=== PATIENT | male | born 1935 | race Caucasian/White ===

== ENCOUNTER 2016-10-14 04:39 | Inpatient (IN) | payer MEDICARE, OTHER ==
[~2016-10-14] VITALS: Ht 193 cm; Wt 114.6 kg
[~2016-10-14 04:39] MED LIST: ASPI-973 PO; CHOL10008 PO; CYAN10008 PO; DOCU-41 PO; FAMO20T PO; METO25TA6 PO; NITR0.4T SL; NYST15PO5 EXTERNAL; OXYC1TAB24 PO; SENN8.6C6 PO; SIMV40TA5 PO; TRIA1TAB5 PO; WARF2.5T PO; WARF5TAB PO; ZYL100 PO
[2016-10-14 04:47] VITALS: BP 123/73; PULSE 74; RESP 21; O2SAT 97
--- NOTE | 2016-10-14 04:49 | ED.REPORT ---
HPI-General Illness Date of Service Oct 14, 2016 ED Provider: Dr. Daniel Hsieh M.D. 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 He also reports wheezing and shortness of breath. The patient denies fever, nausea, vomiting, chest pain, hemoptysis, abdominal pain, or constipation. Nursing Notes Stated Complaint: SHORT OF BREATH COUGH Chief Complaint: Respiratory Complaints Nursing Notes Reviewed: Yes Allergies: Coded Allergies: rofecoxib (Verified Allergy, Severe, 10/14/16) ciprofloxacin (Verified Allergy, Unknown, rash, 10/14/16) Scheduled Allopurinol (Allopurinol) 100 Mg Tablet 100 MG PO DAILY Aspirin (Aspirin) 81 Mg Tablet 81 MG PO DAILY Cephalexin (Cephalexin) 250 Mg Tablet 250 MG PO DAILY Cholecalciferol (Vitamin D3) (Vitamin D3) 1,000 Unit Tab.chew 1,000 UNIT PO DAILY Cyanocobalamin (Vitamin B-12) (Vitamin B-12) 1,000 Mcg Tablet 1,000 MCG PO DAILY Metoprolol Tartrate (Metoprolol Tartrate) 25 Mg Tablet 12.5 MG PO BID Simvastatin (Simvastatin) 40 Mg Tablet 20 MG PO HS Triamterene/HCTZ 75-50 mg (Triamterene/HCTZ 75-50 mg) 1 Each Tablet 1 EACH PO DAILY Warfarin Sodium (Warfarin Sodium) 2.5 Mg Tablet 2.5 MG PO Tu, Thu Warfarin Sodium (Warfarin Sodium) 5 Mg Tablet 5 MG PO M, W, Th, St, Sn Scheduled PRN Docusate Sodium (Colace) 100 Mg Capsule 100 MG PO BID PRN PRN For Constipation Nitroglycerin SL (Nitrostat) 0.4 Mg Tab.subl 0.4 MG SL Q5MIN PRN PRN For Chest Pain Nystatin (Nystatin) 15 Gm Powder 1 APPLIC EXTERNAL BID PRN PRN rash Sennosides (Senna) 8.6 Mg Tablet 8.6 MG PO PRN For Constipation oxyCODONE-Acetaminophen 5-325 mg (oxyCODONE-Acetaminophen 5-325 mg) 1 Each Tablet 1 TAB PO TID PRN PRN For Pain General Time Seen by MD: 04:49 Chief Complaint Cough Hx Obtained From: Patient, Spouse Arrived By: Ambulance Sudden in Onset?: Yes Onset Occurred: 9 - 12 hours ago Symptom Duration: Since onset Severity: Current: No pain currently Severity: Maximum: No pain Associated with: Reports: Shortness of breath, Denies: Chest pain, Fever, Nausea, Vomiting Pertinent Negative: Relieved by nothing Context Related History: Reports Coronary artery disease Recent Healthcare: No recent doctor visit Similar Sx Previous: Yes Past Medical History Past Medical History Bedridden since stroke in 2010 1. Coronary artery disease. He had a cath back in early 1999 that showed mild multivessel disease with an EF of 60%. 2. History of B-cell lymphoma 3. He has had bilateral kidney cysts which have been removed. 4. osteoarthritis 5. 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 6. Colon polyps. 7. Atrial fibrillation. 8. Hypertension. 9. 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 Physical Exam Vital Signs Vital Signs Date Time Temp Pulse Resp B/P Pulse Ox O2 Delivery O2 Flow Rate FiO2 10/14/16 05:29 73 18 95 Room Air 10/14/16 04:47 36.4 74 21 123/73 97 Room Air Initial VS: Reviewed Head / Eyes: Atraumatic, Normocephalic Neck: Supple, Full range of motion Skin: Warm, Dry, No cyanosis Psychiatric: Mood/affect normal, Behavior normal, Normal thought content General/Constitutional: Awake, Alert Distress / Hydration: Positive: Dehydration mild ENT: Airway patent, Mucous membranes moist, Pharynx NL Respiratory / Chest: Breath sounds = bilat, No respiratory distress Dull crackles in right base Cardiovascular: Regular rhythm, Heart sounds NL Heart Rate / Rhythm: Positive: Tachycardia Upper Ext Edema: Positive: Left 2+, Right 4+ Neurologic: Oriented X3, Speech NL Hemiparetic on the right Interpretation & Diagnostics Lab Results Interpretation Result Diagram: 1/3/17 0445 10/14/16 0445 Test 10/14/16 04:45 10/14/16 05:25 White Blood Count 9.0th/mm3 (3.8-10.1) Red Blood Count 5.10mil/mm3 (4.40-5.80) Hemoglobin 16.0g/dL (13.8-17.2) Hematocrit 47.7% (41.0-50.0) Mean Corpuscular Volume 93.5fL (81-100) Mean Corpuscular Hemoglobin 31.4pg (27.0-35.0) Mean Corpuscular Hemoglobin Concent 33.5% (32.0-37.0) Red Cell Distribution Width 14.1% (12.3-15.4) Platelet Count 146bil/L (150-400) Neutrophils (%) (Auto) 83.4% (40-74) Lymphocytes (%) (Auto) 4.8% (14-46) Monocytes (%) (Auto) 10.5% (4-12) Eosinophils (%) (Auto) 0.8% (0-5) Basophils (%) (Auto) 0.3% (0-3) Hold Purple Top Tube Received (Received) Prothrombin Time 22.7sec (8.1-12.5) Prothromb Time International Ratio 2.09ratio Activated Partial Thromboplast Time 31.9sec (22.8-33.0) Hold Blue Top Tube Received (Received) Sodium Level 139mEq/L (134-144) Potassium Level 4.4mEq/L (3.5-5.2) Chloride Level 101mEq/L (97-108) Carbon Dioxide Level 26mmol/L (18-29) Blood Urea Nitrogen 24mg/dL (8-27) Creatinine 1.00mg/dL (0.76-1.27) Estimat Glomerular Filtration Rate 76mL/min (>59) Glucose Level 129mg/dL (60-99) Calcium Level 9.3mg/dL (8.5-10.1) Total Bilirubin 1.1mg/dL (0.0-1.2) Aspartate Amino Transf (AST/SGOT) 17U/L (0-50) Alanine Aminotransferase (ALT/SGPT) 11U/L (0-44) Alkaline Phosphatase 52U/L (25-160) Troponin T 0.037ug/L (0.0-0.011) Pro-B-Type Natriuretic Peptide 2588pg/mL (0-486) Total Protein 6.6g/dL (6.4-8.4) Albumin 3.4g/dL (3.4-5.0) Hold [place] Top Tube Received (Received) Hold [place] Top Tube Received (Received) Urine Color Yellow (YELLOW) Urine Appearance Slightly cloudy Urine pH 6.0 (5.0-8.0) Urine Specific [place] 1.025 (1.003-1.035) Urine Protein 100mg/dL (NEG,TRACE) Urine Glucose (UA) Negativemg/dL (NEGATIVE) Urine Ketones Negativemg/dL (NEGATIVE) Urine Occult Blood Large (NEGATIVE) Urine Nitrite Positive (NEGATIVE) Urine Bilirubin Negative (NEGATIVE) Urine Urobilinogen Normalmg/dL (NORMAL) Urine Leukocyte Esterase Small (NEGATIVE) Urine RBC Packed/hpf (0-2) Urine WBC >50/hpf (0-5) Urine Epithelial Cells Occasional/hpf (NONE-MOD) Urine Crystals None seen (NONE SEEN) Urine Bacteria Many/hpf (NONE-FEW) Urine Hyaline Casts None/lpf (NONE) Urine Granular Casts None seen (NONE SEEN) Urine Waxy Casts None seen (NONE SEEN) Urine Red Blood Cell Casts None seen (NONE SEEN) Urine White Blood Cell Casts None seen (NONE SEEN) Urine Mucus None seen (None Seen) Urine Trichomonas None seen (NONE SEEN) Urine Yeast None (NONE SEEN) Urine Culture Reflexed Indicated ECG Interpretation ECG Interpretation: Atrial fibrillation rate 87 PVCs Nothing acute Time: 05:45 Interpreted by: ED physician X-Ray Chest Interpretation Chest Xray Interpretation: Possible right lower lobe infiltrate View: Portable, 1 view Interpretation / Wet Read by: Wet read ED physician Re-Eval/Medical Decision Med Decision/Clinical Course 81-year-old man status post stroke with chronic A. fib on Coumadin, presents with cough and inability to catch his breath. He is also having difficulty producing sputum. Denies chest pain shortness of breath except when coughing. He has had no nausea vomiting or diaphoresis. He has no evidence of pneumonia on x-ray, and a negative flu swab. However, his troponin is elevated without explanatory elevation of his creatinine. His EKG is nonacute with right bundle branch block and atrial fibrillation. He is admitted now to the medicine service for trending of his troponin, aspirin in addition to his ongoing Coumadin, and ongoing nebulizer treatment for his bronchitis and dyspnea. He has additionally a urinalysis with evidence of infection, but a chronic indwelling Ovalle. He is on prophylactic cephalexin daily. He is allergic to Cipro. Culture of urine pending. Consider trial, even briefly, of antibiotic without a Ovalle in place. Source of Hx: Old records Time of Eval: 06:45 Patient Status: Condition improved Re-Evaluation/Progress Note: Patient rechecked. Counseled Regarding: Diagnosis, Need for follow-up, When/why to return to ED Discharge & Departure Shift Change Sign-Out Response to Therapy: Improved Primary Impression: Elevated troponin Additional Impressions: Acute bronchitis Bronchitis organism: unspecified organism Qualified Code: J20.9 - Acute bronchitis, unspecified Cough Chronic indwelling Ovalle catheter Urinary tract infection Disposition: Home Discharge Condition All VS Reviewed: Yes Condition: Stable Referrals: Joselo Schmitt MD (PCP) [place] Attestation Portions of this note were transcribed by Susannah Catalan. I, Dr. Hsieh, personally performed the history, physical exam, and medical decision-making; I reviewed and confirmed the accuracy of the information in the transcribed note. Signed by: Aamir Alvarado, 10/14/2016, 06:43 copies to: Joselo Schmitt MD, Christopher W MD Oct 14, 2016 04:49 SUSANNAH CATALAN Oct 14, 2016 04:54
[2016-10-14] MEDS ORDERED: WARF2.5T82 PO (05:05)
[2016-10-14] MEDS ORDERED: WARF5TAB7 PO (05:05)
[2016-10-14] MEDS ORDERED: CEPH250T PO (05:05)
[2016-10-14] MEDS ORDERED: SENN-133 PO (05:06)
[2016-10-14] MEDS ORDERED: Albuterol 2.5 mg/3 mL Inhalation Solution NEB ONE (05:10)
[2016-10-14] MEDS ORDERED: Albuterol-Ipratropium 3 mL Inhalation Solution NEB ONE (05:10)
[2016-10-14 05:29] VITALS: PULSE 73; RESP 18; O2SAT 95
[2016-10-14 05:57] LABS: BASOPHILS % (AUTO) 0.3 % (0-3); EOSINOPHILS % (AUTO) 0.8 % (0-5); MONOCYTES % (AUTO) 10.5 % (4-12); Mean Corpuscular Hemoglobin 31.4 pg (27.0-35.0); Mean Corpuscular Volume 93.5 fL (81-100); NEUTROPHILS % (AUTO) 83.4 % (40-74); Platelet Count 146 bil/L (150-400)
[2016-10-14 06:02] LABS: INR 2.09 ratio
[2016-10-14 06:30] LABS: TROPONIN T 0.037 ug/L (0.0-0.011)
[2016-10-14 06:31] LABS: APPEARANCE,URINE SLIGHTLY CLOUDY (CLEAR,HAZY); COLOR,URINE YELLOW (YELLOW); OCCULT BLOOD,URINE LARGE (NEGATIVE); UROBILINOGEN,URINE NORMAL (NORMAL)
[2016-10-14] MEDS ORDERED: Heparin 5,000 Unit/mL Inj IVPUSH ONE (07:05)
[2016-10-14] MEDS ORDERED: Heparin 25K Unit/500mL 0.45 NS 25,000 UNIT in IV Premix 1 EACH IV SCH (07:05)
[2016-10-14] MEDS ORDERED: Heparin 5,000 Unit/mL Inj IVPUSH PRN ×2 (07:05→16:00)
[2016-10-14] MEDS ORDERED: OXYC1TAB24 PO (07:22)
[2016-10-14] MEDS ORDERED: LORazepam 0.5 mg Tablet PO ONE ×2 (08:36→08:55)
--- NOTE | 2016-10-14 08:46 | DRSVH ---
PROCEDURE: X-RAY CHEST ONE VIEW, PORTABLE ([id number]) INDICATIONS: SHORT OF BREATH, cough TECHNIQUE: One view of the chest was acquired. COMPARISON: [facility], CR, XR CHEST 1VW (PORTABLE), 02/13/2016, 7:23. [facility], CR, CHEST 1VW (PORTABLE), 07/27/2011, 6:00. [facility], CR, CHEST 1VW (PORTABLE), 07/26/2011, 15:38. FINDINGS: Surgical changes and devices: None. Lungs and pleura: No pleural effusions or pneumothorax. Mild right basal atelectasis versus pneumoni a. Mediastinum: Mediastinal contours appear normal. Heart size is enlarged. Bones and chest wall: No suspicious bony lesions. Overlying soft tissues appear unremarkable. IMPRESSION: Right basilar atelectasis versus pneumonia. Concordant with preliminary interpretation. Dictated by: Yisel Phan M.D. on 10/14/2016 at 8:44 Approved by: Yisel Phan M.D. on 10/14/2016 at 8:44
[2016-10-14 08:50] VITALS: BP 144/65; PULSE 83; RESP 22; O2SAT 96
[2016-10-14] MEDS ORDERED: LORazepam 0.5 mg Tablet ONE (13:52)
[2016-10-14] MEDS ORDERED: Alum-Mag Hydrox-Simeth 30 mL Suspension PO PRN (15:40)
[2016-10-14] MEDS ORDERED: Ondansetron 2 mg/mL 2 mL Inj IVPUSH PRN (15:40)
[2016-10-14] MEDS ORDERED: Polyethylene Glycol (PEG) 17 Gm Powder PO PRN (15:40)
[2016-10-14 16:01] VITALS: BP 118/47; PULSE 71; RESP 22; O2SAT 94
[2016-10-14] MEDS: Heparin 25K Unit/500mL 0.45 NS 25,000 UNIT in IV Premix 1 EACH IV SCH (17:35)
--- NOTE | 2016-10-14 18:37 | DRSVH ---
PROCEDURE: US VENOUS LEG DUPLEX BILATERAL INDICATIONS: dyspnea TECHNIQUE: Real-time imaging, as well as color and pulse Doppler interrogation, were performed of the deep veins of both legs from the inguinal ligament to the popliteal fossa. COMPARISON: None. FINDINGS: Right: The common femoral vein is patent. The femoral and popliteal veins are not visualized. There i s marked soft tissue edema. Left: The common femoral and popliteal veins are patent. The femoral vein is not visualized. There is marked soft tissue edema. IMPRESSION: 1. Suboptimal examination because of the marked soft tissue edema. 2. Nonvisualization of the right femoral vein and popliteal vein, as well as the left femoral vein. C annot rule out DVT. 3. Patient common femoral veins bilaterally and left popliteal vein. Dictated by: Selena Gomez M.D. on 10/14/2016 at 18:35 Approved by: Selena Gomez M.D. on 10/14/2016 at 18:35
--- NOTE | 2016-10-14 19:19 | NUR ---
Anxiety Pt. feeling anxious this morning. Hypertensive in 160s/90s. one-time PO lorazepam administered. Pt. feeling less anxious after one hour and BP has resolved.
[2016-10-14 19:52] VITALS: BP 111/57; PULSE 85; RESP 18; O2SAT 94
--- NOTE | 2016-10-14 21:22 | PCM.HPMED ---
Subjective Date of Service Oct 14, 2016 Primary Provider: Admitting Physician: Chuy Donovan MD Primary Care Physician: Joselo Schmitt MD Attending Physician: Chuy Donovan MD Chief Complaint: Dyspnea on exertion and cough. History of Present Illness: Mr. Tristan Catalan is an 81 year old gentleman with history of Afib, VT, DVT, and stroke with residual right sided hemiparesis. He has been bed-bound for 4 years. For about a month, patient gets short of breath 2 hours after eating his early dinner around 3pm. He says he turns the ceiling fan on, and it gets better. He is seen by [facility], and nurse yesterday had no concerns other than possible abnormal lung sounds at right base. He has not slept well for the last 3 days, and around 3 am this morning he came down with a non- productive cough with severe shortness of breath and weakness. He also reports feeling anxious. His called 911 and was brought to [facility] ED. He received duoneb and albuterol treatment in ED. He says this loosened the mucous in his lungs, but that he still cannot bring it up. Review of Systems: A comprehensive review of systems was conducted with the patient and found to be negative except as above in the History of Present Illness. Allergies Coded Allergies: rofecoxib (Verified Allergy, Severe, 10/14/16) ciprofloxacin (Verified Allergy, Unknown, rash, 10/14/16) Home Medications Metoprolol 25mg daily, allopurinol 100mg daily, triamterene 75/50 mg daily, ASA 81 mg daily, oxycodone 5/325 daily, docusate PRN, Cephalexin 250mg daily, warfarin 2.5 mg thu, 5mg other days, simvastatin 40 mg daily, vitamin B12 1000 mcg daily PMH Affib, VT in February 2016,Stroke in 2010, DVT 2007, HTN, hyperlipidemia, renal cell CA, recurrent UTIs, gout Surgical History Cath in 2005, not stented, occluded RCA w/collaterals, bilateral partial nephrectomy, right knee arthroscopy Family History Parkinsons-father, mother lived to , healthy children Social History Hx Alcohol Use: No Hx Substance Use: No Hx Tobacco Use: No Smoking Status: Never Smoker Exam Vital Signs Vital Sign - Last Date Time Temp Pulse Resp B/P Pulse Ox O2 Delivery O2 Flow Rate FiO2 10/14/16 19:52 36.7 85 18 111/57 94 Room Air Exam VS: Temp 36.4, BP 155/67, HR 78 in affib, 94% RA, RR 18 General: sick appearing man, though is able to answer questions HEENT: neck supple, non tender, no LAD, oral pharynx without erythema or exudates Neuro: EOMI, PERRLA, visual gay intact, able to move right foot, but without sensation, left sided strength and sensation at baseline Cardiac: irregularly irregular rhythm, no murmurs/rubs gallops, no JVD, distal pules present, IV in R AC Pulmonary: decreased air movement with expiatory wheeze Abdomen: soft nontender, decreased bowel sounds, no CVA or suprapubic tenderness : chronic urinary catheter present with 200 mL of dark yellow urine in bag Extremities: right leg diffusely swollen, bilateral pitting edema, small well- healing sores on posterior right leg. Small open wound on right great toe with erythema Lab and Diagnostics Result Diagram: 10/14/1644410/14/16444 Assessment & Plan This is an 81 year old male with history of Affib, VT, DVT, and stroke with residual right sided hemiparesis. He has been bed-bound for 4 years. For about a month, patient gets short of breath 2 hours after eating his early dinner around 3pm. He says he turns the ceiling fan on, and it gets better. He is seen by [facility], and nurse yesterday had no concerns other than possible abnormal lung sounds at right base. He has not slept well for the last 3 days, and around 3 am this morning he came down with a non-productive cough with severe shortness of breath and weakness. He also reports feeling anxious. His called 911 and was brought to [facility] ED. He received duoneb and albuterol treatment in ED. He says this loosened the mucous in his lungs, but that he still cannot bring it up. 1.Dyspnea with cough: Progressive, Present on admission. Active. - DDX: CAP Viral / aspiration / Bacterial less likely, DVT/PE, CHF. - Viral PCR Pending. - Goldman cx - Blood x2, Urine, sputum pending. - CXR results per above. - CURB-65 score 2 for BUN and age, PSI score 101 with 8.2-9.3 mortality risk - Begin Ceftriaxone / azithromycin - Scheduled Duoneb and albuterol Q2hr as needed - Urine legionella antigen, strep antigen, - Elevated BNP, dyspnea - ECHO pending. - Venous Doppler US Pending. - Speech / swallow eval. 2.UTI- Chronic, present on admission, active. - 2nd to indwelling catheter with failed medical management. - UA per above. - Discontinue cephalexin, monitor urine output. Abx per above. - Lactic acid - pending. 3..Possible NSTEMI, present on admission, active - History of NSTEMI in February, elected to manage medically. - Elevated troponin - 0.037 - EKG ST depressions - Continue home statin, ASA - Cardiac Heparin ggt. - Consult Cardiology 4.Affib without RVR-Chronic, present on admission, active - Per EKG - On tele monitor. - Continue home metoprolol. 5.Anxiety: acute, POA - Give .5g mg Ativan IV 6.Hypertension: Chronic, controlled - Continue metoprolol 7.Gout: Chronic inactive - Continue allopurinol 8. Decubitus ulcers and lower extremity ulcers. - 2nd to immobility and decreased functional status of Right lower extremity. - Wound care to assess and treat. Acetaminophen for mild pain when necessary. Bowel regimen Senna and MiraLAX scheduled and PRN. Zofran when necessary for nausea and vomiting. SubQ heparin and ggt for now. SCDs in place. High-risk medications: Heparin ggt. Patient Status: Patient is admitted under inpatient status with expected length of stay greater than 2 midnights due to severity of presenting symptoms, risk of adverse event, and complexity of treatment plan. Pain Evaluation: Adequate Pain Control Resuscitation Status: Limited Interventions (Chest compressions, Do not intubate.) Attending Statement The patient was seen and examined together with Dr. Urrutia on 10-14-16 and I agree with the history, exam and plan as outlined in the note above. DIYA URRUTIA DO Oct 14, 2016 21:22 Chuy Donovan MD Oct 15, 2016 16:55
[2016-10-14] MEDS ORDERED: CEFTAZIDIME IV SCH (22:35)
[2016-10-14] MEDS ORDERED: DEXTROSE 5% IV SCH (22:35)
[2016-10-14] MEDS: oxyCODONE-Acetamin 5-325 mg Tablet PO PRN (22:47)
[2016-10-14 23:00] VITALS: BP 155/70; PULSE 70; RESP 18; O2SAT 95
[2016-10-14] MEDS ORDERED: 0.9% Sodium Chloride 250 ML ONE (23:00)
--- NOTE | 2016-10-14 23:00 | NUR ---
pain patient complains of pain to bilateral lower extremities. rates pain a 3. requests percocet as per home meds. notified night resident dr ly. levy ordered. administered. patient stated it was effective. rates pain a 1. resting quietly.
[2016-10-15] VITALS (8 sets, daily range): BP systolic 120–164; BP diastolic 56–103; PULSE 55–85; RESP 16–18; O2SAT 95–98
--- NOTE | 2016-10-15 02:13 | NUR ---
care update patient placed on telemetry. refuses to be repositioned. requests door closed to room. given call agrawal. reviewed fall precautions verbalized understanding.
[2016-10-15 04:14] LABS: BASOPHILS % (AUTO) 0.3 % (0-3); EOSINOPHILS % (AUTO) 0.2 % (0-5); MONOCYTES % (AUTO) 11.9 % (4-12); Mean Corpuscular Hemoglobin 31.1 pg (27.0-35.0); Mean Corpuscular Volume 92.3 fL (81-100); NEUTROPHILS % (AUTO) 81.2 % (40-74); Platelet Count 128 bil/L (150-400)
[2016-10-15 05:00] LABS: Creatine Kinase 122 U/L (21-232)
[2016-10-15 05:01] LABS: TROPONIN T 0.073 ug/L (0.0-0.011)
--- NOTE | 2016-10-15 06:08 | NUR ---
care update patient again refuses to be repositioned. states "i am comfortable where i am." educated about risk of skin breakdown. patient cont to refuse. Addendum: 10/15/16 at 0748 by RENE CISSE RN repositioned and turned patient to the right.
--- NOTE | 2016-10-15 08:43 | DRSVH ---
PROCEDURE: X-RAY CHEST ONE VIEW, PORTABLE ([id number]) INDICATIONS: 81 year-old male with dyspnea. TECHNIQUE: One view of the chest was acquired. COMPARISON: [facility], CR, XR CHEST 1VW (PORTABLE), 10/14/2016, 4:53. [facility], CR, XR CHEST 1VW (PORTABLE), 02/13/2016, 7:23. [facility], CR, CHEST 1VW (PORTABLE ), 07/27/2011, 6:00. FINDINGS: Surgical changes and devices: None. Lungs and pleura: No pleural effusions or pneumothorax. Right basilar air space opacities have incre ased. Mediastinum: Mediastinal contours appear normal. Heart size is unchanged. There is aortic atherosc lerosis. Bones and chest wall: No suspicious bony lesions. Overlying soft tissues appear unremarkable. IMPRESSION: Slight interval increase in right basilar atelectasis versus pneumonia. Dictated by: Herson Page M.D. on 10/15/2016 at 8:41 Approved by: Herson Page M.D. on 10/15/2016 at 8:41
--- NOTE | 2016-10-15 10:29 | NUR ---
Transfer Pt arrived to floor @ 0815. No chest pain reported. Pt on droplet for + rhinovirus. Pt states he is bedbound as he had a CVA with right sided weakness. Tele current Afib. Lower extremity edema is present. Pt has preexisting monsalve that is changed monthly by home health nurse which was just changed 10/13/16. Pt states last BM on 10/13/16 and it is normal for him to have a BM Q3-4 days. RN swallow eval done which pt passed. Spoke with Yuri Rey of speech therapy in [facility] regarding my findings. Pt appears to not have any issues swallowing. Pt had hep gtt infusing at 1025units/hr. Pt aware he is to have an echo today and still needing a sputum sample. Care conts
[2016-10-15] MEDS: cefTRIAXone Inj 2,000 MG in IV Premix 1 EACH IV SCH (11:03)
[2016-10-15] MEDS: oxyCODONE-Acetamin 5-325 mg Tablet PO PRN ×2 (11:06→19:50)
--- NOTE | 2016-10-15 12:11 | NUR ---
Erlinch @ [phone] Tele called this nurse to report 16 beat run of Donal. paged. Pt asymptomatic.
[2016-10-15] MEDS: Azithromycin Inj 500 MG in Dextrose 5% w/Vial Mate 250 ML IV SCH (12:39)
--- NOTE | 2016-10-15 14:55 | NUR ---
Blood cultures Lab called with positive blood cultures gram pos cocci resembling staph. Results called to Dr. Wilks. States she is going to contact Dr. wharton. Care conts
--- NOTE | 2016-10-15 15:36 | DRSVH ---
[facility] [address] [place] [address] Echocardiogram Report Name: MITCHELL ROSENTHAL LStudy Date: 10/15/2016 Height: 76 in Hospital Exam Location: [facility] Weight: 250 lb Gender: Male BSA: 2.4 m2 : 1935 Age: 81 yrs BP: 120/56 mmHg Reason For Study: SOB Ordering Physician: Performed By: Hamida Luther Referring Physician: Melchor Schmitt Interpretation Summary The left ventricle is normal in size, wall thickness, and systolic function without any focal wall motion abnormalities. The ejection fraction is estimated to be 60-65%. The right ventricle is not well visualized. The right ventricle grossly appears normal in size with probable normal systolic function. Right ventricular systolic pressure is estimated to be 21 mmHg plus the clinically estimated CVP which cannot be estimated on this exam. The left atrial size is normal. Right atrium not well visualized. There is mild aortic stenosis. The calculated aortic valve area is 1.8 cm2. There is no other significant valvular heart disease. The aortic root is normal size. Procedure: A two-dimensional transthoracic echocardiogram with color flow and Doppler was performed. The study quality was technically adequate. Comparison is made with the echocardiogram of 07-27-11. The heart rate ranged between 64-73 bpm during the study. Left Ventricle: The left ventricle is normal in size, wall thickness, and systolic function without any focal wall motion abnormalities. The ejection fraction is estimated to be 60-65%. Right Ventricle: The right ventricle is not well visualized. The right ventricle grossly appears normal in size with probable normal systolic function. Atria: The left atrial size is normal. Right atrium not well visualized. Mitral Valve: The mitral valve leaflets appear mildly thickened, but open well. There is mild mitral annular calcification. There is no mitral regurgitation noted. Aortic Valve: The aortic valve is moderately calcified. There is mild aortic stenosis. The calculated aortic valve area is 1.8 cm2. No aortic regurgitation is present. Tricuspid Valve: The tricuspid valve is not well visualized. The tricuspid valve is not well visualized, but is grossly normal. Right ventricular systolic pressure is estimated to be 21 mmHg plus the clinically estimated CVP which cannot be estimated on this exam. Pulmonic Valve: The pulmonic valve is not well seen, but is grossly normal. There is trace pulmonic regurgitation. There is no other significant valvular heart disease. Great Vessels: The aortic root is normal size. The dimensions of the ascending aorta are normal. The inferior vena cava was not visualized. Pericardium/ Pleura There is no pericardial effusion. There is no pleural effusion. MMode/2D Measurements & Calculations LVIDd: 4.0 cm LA dimension LVOT diam: 2.2 cm LV patel. diameter/BSA LVIDs: 2.8 cm AoV Openin.1 cm (cm/m^2): 1.7 FS: 31.5 % LA A2 area Ao root diam IVSd: 1.3 cm LVPWd: 1.0 cm Aortic Jxn: 2.5 cm LA A4 area asc Aorta Diam LA length Ao Arch Diam (vol): 7.8 cm (Proximal trans.) LA vol: 59.2 ml LA vol index : 24.3 ml/m2 LV sys. diameter/BSA (cm/m^2): 1.1 Doppler Measurements & Calculations Ao V2 max MV E max wilberto MV E/A: 2.9 TR max wilberto : 176.1 cm/sec : 90.0 cm/sec Med Peak E' Wilberto : 227.0 cm/sec Ao max PG MV A max wilberto TR max PG : 12.4 mmHg : 31.2 cm/sec E/E' med: 12.6 : 20.6 mmHg Ao mean PG MV P1/2t: 48.2 msec Lat Peak E' Wilberto PA V2 max : 87.5 cm/sec LVOT Max Wilberto E/E' lat: 7.9 PA mean PG : 82.5 cm/sec PA Accel Time CHAZ(I,D): 1.8 cm : 0.10 sec sev ratio MV dec time MV P1/2t max wilberto Ao V2 mean LV V1 max PG : 0.16 sec : 118.3 cm/sec MVA(P1/2t): 4.6 cm2 Ao V2 VTI: 33.5 cm LV V1 VTI CHAZ(V,D): 1.9 cm2 : 15.5 cm PA V2 mean CHAZ indexed to BSA : 47.4 cm/sec (cm^2/m^2): 0.75 Reading Physician:ABIGAIL
--- NOTE | 2016-10-15 16:03 | NUR ---
Wound Care Pressure ulcer protocol received, Pt seen at bedside. Bed bound 81 yo male with history of CVA with right sided weakness. Skin is assessed today no pressure injuries are noted at his skin at this time. When rolled onto his side he is noted to have some bloody drainage from his rectum. Nursing notified. Continue with frequent repositioning as pt needs assist with all bed mobility.
[2016-10-15] MEDS ORDERED: Albuterol 2.5 mg/3 mL Inhalation Solution NEB PRN (16:05)
--- NOTE | 2016-10-15 16:23 | NUR ---
Bloody drainage Wound care notified this nurse regarding minor bloody drainage from his rectum. Spoke with pt regarding this. He states that this seems to happen at least once a month and he was no worried about it. notified via text page.
[2016-10-15] MEDS ORDERED: Lidocaine Topical 2% 30 mL Jelly ONE (16:52)
--- NOTE | 2016-10-15 17:03 | PCM.PNMED ---
Subjective Date of Service Oct 15, 2016 Subjective Tristan Catalan is an 81-year-old male with a past medical history significant for CVA with residual right-sided hemiparesis, CAD, hypertension, atrial fibrillation and bilateral DVT's on chronic anticoagulation with warfarin who presented to [facility] ED via EMS for productive cough, wheezing and shortness of breath. Hospital day #2. Overnight: There were no acute events. Telemetry overnight was atrial fibrillation, heart rate 50-80's, without multiform PVC pairs. The patient is resting in bed comfortably and in no acute distress. He endorses non-productive cough. He denies headache, ear pain, rhinitis, sore throat, shortness of breath, chest pain, abdominal pain, nausea, vomiting, fever , chills, dysuria, diarrhea or constipation. He is voiding via Ovalle catheter with little urine output. He has not had a BM since admission. He is bedbound for the past 4 years. . Exam Vital Signs Vital Sign - Last Date Time Temp Pulse Resp B/P Pulse Ox O2 Delivery O2 Flow Rate FiO2 10/15/16 13:53 36.7 55 18 121/60 96 Room Air Intake and Output 10/14/16 10/14/16 10/15/16 Cumulative From/Thru 15:00 23:00 07:00 10/14/16 04:47 - 10/15/16 05:00 Intake Total 226 ml 226 ml Output Total 600 ml 500 ml 1100 ml Balance -600 ml -274 ml -874 ml Intake IV Total 226 ml 226 ml Output Urine Total 600 ml 500 ml 1100 ml Exam General: Older gentleman lying in bed and in no acute distress, well-developed, well-nourished, appropriately interactive. HEENT: Normocephalic, atraumatic. External ears without defect. Pupils equal, round, and reactive to light. Anicteric sclerae, moist conjunctivae, and no lid lag. Mucus membranes dry. Poor dentition. Neck: Supple with full range of motion. No lymphadenopathy or thyromegaly. Cardiovascular: Irregular irregular rate and rhythm with no murmurs, rubs, or gallops appreciated. Pulmonary: Clear to auscultation except at right base scattered crackles. Normal respiratory effort with no use of accessory muscles. Abdomen: Soft, nontender, nondistended, bowel sounds present. No hepatosplenomegaly or masses appreciated. Extremities: No clubbing, cyanosis, or edema. Skin: Normal temperature, turgor, and texture; no rash, ulcers, or subcutaneous nodules appreciated. Neurological: Bed bound secondary to chronic right sided hemiparesis. Psychiatric: Normal mood and affect. Alert and oriented to person, place, and time. . IVs and Medications Medications Reviewed: Medications were reviewed in detail Lab and Diagnostics Item Value Date Time Calcium Level 8.9 mg/dL 10/15/16 0400 Total Bilirubin 1.3 mg/dL H 10/15/16 0400 Aspartate Amino Transf (AST/SGOT) 20 U/L 10/15/16 0400 Alanine Aminotransferase (ALT/SGPT) 8 U/L 10/15/16 0400 Alkaline Phosphatase 42 U/L 10/15/16 0400 Total Protein 5.3 g/dL L 10/15/16 0400 Albumin 2.9 g/dL L 10/15/16 0400 Procalcitonin 0.20 ng/mL 10/15/16 040 Result Diagram: 10/15/16 04010/15/16 040 Microbiology Urine culture preliminarily growing gram-negative rods likely Escherichia coli with identification and sensitivities to follow. Blood culture x 1 preliminarily growing gram-positive cocci resembling staph aureus with identification and sensitivities to follow. Streptococcus and Legionella urine antigen negative. . X-Rays, CTs and MRIs X-RAY CHEST ONE VIEW, PORTABLE IMPRESSION: Right basilar atelectasis versus pneumonia. Concordant with preliminary interpretation. Dictated by: Yisel Phan M.D. on 10/14/2016 at 8:44 Approved by: Yisel Phan M.D. on 10/14/2016 at 8:44 US VENOUS LEG DUPLEX BILATERAL IMPRESSION: 1. Suboptimal examination because of the marked soft tissue edema. 2. Nonvisualization of the right femoral vein and popliteal vein, as well as the left femoral vein. Cannot rule out DVT. 3. Patient common femoral veins bilaterally and left popliteal vein. Dictated by: Selena Gomez M.D. on 10/14/2016 at 18:35 Approved by: Selena Gomez M.D. on 10/14/2016 at 18:35 X-RAY CHEST ONE VIEW, PORTABLE IMPRESSION: Slight interval increase in right basilar atelectasis versus pneumonia. Dictated by: Herson Page M.D. on 10/15/2016 at 8:41 Approved by: Herson Page M.D. on 10/15/2016 at 8:41 Cardiac Echo Impressions Echocardiogram Interpretation Summary: The left ventricle is normal in size, wall thickness, and systolic function without any focal wall motion abnormalities. The ejection fraction is estimated to be 60-65%. The right ventricle is not well visualized. The right ventricle grossly appears normal in size with probable normal systolic function. Right ventricular systolic pressure is estimated to be 21 mmHg plus the clinically estimated CVP which cannot be estimated on this exam. The left atrial size is normal. Right atrium not well visualized. There is mild aortic stenosis. The calculated aortic valve area is 1.8 cm2. There is no other significant valvular heart disease. The aortic root is normal size. Reading Physician:PM . Assessment & Plan Tristan Catalan is an 81-year-old male with a past medical history significant for CVA with residual right-sided hemiparesis, CAD, hypertension, atrial fibrillation and bilateral DVT's on chronic anticoagulation with warfarin who presented to [facility] ED via EMS for productive cough, wheezing, and shortness of breath. Hospital day #2. 1. Acute dyspnea, present on admission. Active. - Patient presented with dyspnea at rest with a non-productive cough. - Differential diagnosis includes: Community-acquired pneumonia (viral versus bacterial) versus unlikely venous thromboembolism versus congestive heart failure for reasons below. 2. Acute viral upper respiratory tract infection, present on admission. Active. - Viral PCR positive for rhinovirus, as above. - Chest x-ray shows increasing right basilar opacities, as above. - Urine legionella and strep urine antigen negative. - Ordered DuoNeb every and albuterol every 2 hours as needed. - Echocardiogram revealed normal systolic function with an ejection fraction of 60-65% and normal RV, as above. - Venous Doppler US shows no evidence of DVT making PE less likely. - Procalcitonin low at 0.20. Trending with tomorrow's labs but unlikely but bacterial. - Ordered speech evaluation, pending. 3. Recurrent urinary tract infection, secondary to chronic indwelling early catheter, present on admission. Active. - Chronic indwelling Ovalle catheter changed today and marked and dated. - Urine culture preliminarily growing gram-negative rods likely Escherichia coli with identification and sensitivities pending. - Discontinued home cephalexin. - Continue to monitor creatinine and urine output daily. - Pending infectious disease recommendations, continue ceftriaxone and azithromycin. Added linezolid 600 mg every 12 hours for MRSA coverage. 4. Possible NSTEMI, present on admission. Active. - History of NSTEMI in February and the patient elected to manage medically. - Elevated troponin initially elevated at 0.037. Continues to rise and is currently 0.073. We will continue to trend every 4 hours with LA. - EKG equivocal and echocardiogram showed no focal wall motion abnormalities. - Lactic acid elevated at 2.3. Repeat now. Trend every 4 hours if continuing to rise until less than 2.0. - Ordered NS at 100 mL/hr. - Continue medical management with Cardiac Heparin gtt (48 hours), aspirin 81 mg daily, and atorvastatin 10 mg daily at bedtime. 5. Possible bacteremia, present on admission. Active. - Blood culture x1 preliminarily growing gram-positive cocci suspicious for Staphylococcus, as above. - Ordered MRSA screen, pending. - Pending infectious disease recommendations, continue ceftriaxone and azithromycin. Added linezolid 600 mg every 12 hours for MRSA coverage. - Consulted Infectious Disease, Dr. Lugo. We appreciate his time and recommendations. Chronic Problems: Chronic atrial trial fibrillation, without RVR. - Continue home metoprolol 12.5 mg twice a day for rate control. Hypertension, chronic. - Continue triamterene/HCTZ 75-25 mg daily. Gout, chronic. - Continue allopurinol 100 mg daily. Chronic decubitus and lower extremity ulcers. - Likely secondary to immobility and decreased functional status due to right sided hemiparesis. - Continue home nystatin powder as needed. - Wound care consult ordered and pending. PRN antiemetics: Zofran and Maalox. PRN bowel regimen: Senna and MiraLAX. PRN analgesics: Tylenol. High-risk medications: Heparin gtt. Disposition: Continue IV probiotics and consult ID today. Likely to discharge her on the 2 days home with home health. . VTE Mechanical Devices: Intermittant Pneumatic CD Resuscitation Status: Limited Interventions (Chest compressions, Do not intubate.) Attending Statement The patient was seen and examined together with Dr. Wilks on 10-15-16 and I agree with the history, exam and plan as outlined in the note above. Hattie Wilks DO Oct 15, 2016 14:09 Chuy Donovan MD Oct 16, 2016 15:21
--- NOTE | 2016-10-15 17:20 | NUR ---
Monsalve Current Monsalve dc'd per Dr. Wilks. New 20 F monsalve placed with ease. Lidocaine jelly used per pt request as that is how he has his monsalve placed with Home Health. Care conts
--- NOTE | 2016-10-15 17:39 | NUR ---
Evaluation completed. Please go to "Notes" then click on "Assessments and Notes" (bottom left corner of screen). Then select appropriate discipline tab on top of screen.
--- NOTE | 2016-10-15 18:10 | NUR ---
Case Management: Attempted to provide IMM to patient who is unable to sign and doesn't want to hear about it until his is present. He instructed me to come back tomorrow at 1000. Didi Zeng RN
[2016-10-15] MEDS: 0.9% Sodium Chloride 1,000 ML IV SCH (18:15)
[2016-10-15] MEDS: Heparin 25K Unit/500mL 0.45 NS 25,000 UNIT in IV Premix 1 EACH IV SCH (18:15)
[2016-10-15] MEDS: Albuterol-Ipratropium 3 mL Inhalation Solution NEB SCH (21:00)
[2016-10-15] MEDS: Linezolid Inj 600 MG in IV Premix 1 EACH IV SCH (21:37)
[2016-10-16] VITALS (8 sets, daily range): BP systolic 123–148; BP diastolic 51–81; PULSE 55–77; RESP 16–18; O2SAT 94–98
[2016-10-16] MEDS: 0.9% Sodium Chloride 1,000 ML IV SCH ×2 (03:45→07:03)
--- NOTE | 2016-10-16 04:25 | NUR ---
Pain/Telemetry Pt alert and oriented x3. He denies any chest pain/discomfort. Percocet given for chronic leg pain with effectiveness reported. Pt enc and reminded to turn q2-3h but prefers to lay mostly on his back. No bm noted. Noted scant amount or red, blood tinged drainage. Per pt, he has history of having some bloody drainage from the past and is not worried about it at this time. Telemetry AFib with HR in 60s to 50s.
[2016-10-16 05:55] LABS: BASOPHILS % (AUTO) 0.6 % (0-3); EOSINOPHILS % (AUTO) 2.1 % (0-5); Mean Corpuscular Hemoglobin 31.6 pg (27.0-35.0); Mean Corpuscular Volume 93.1 fL (81-100); Platelet Count 127 bil/L (150-400)
[2016-10-16] MEDS: Albuterol-Ipratropium 3 mL Inhalation Solution NEB SCH ×4 (06:00→19:47)
[2016-10-16] MEDS: Polyethylene Glycol (PEG) 17 Gm Powder PO SCH (08:30)
[2016-10-16] MEDS: oxyCODONE-Acetamin 5-325 mg Tablet PO PRN ×2 (09:02→20:59)
[2016-10-16] MEDS: Azithromycin Inj 500 MG in Dextrose 5% w/Vial Mate 250 ML IV SCH (09:03)
[2016-10-16] MEDS: Linezolid Inj 600 MG in IV Premix 1 EACH IV SCH ×2 (09:03→20:59)
--- NOTE | 2016-10-16 10:04 | NUR ---
Case Management: [facility] delivered and explained to pt. and spouse, Natividad. Original placed in chart. Copy left at bedside. Desire Bhandari RN
[2016-10-16] MEDS: cefTRIAXone Inj 2,000 MG in IV Premix 1 EACH IV SCH (10:24)
--- NOTE | 2016-10-16 11:54 | NUR ---
Bloody drainage While putting pt on bedpan found a bloody area on the lissa pad the size of a cereal bowl. Pt unable to have BM. Small amount of blood on wet wipes noted while cleaning pt up. Pt states that this does happen from time to time however who takes care of him states that this does not happen. made aware. Care conts
[2016-10-16] MEDS: oxyCODONE-Acetamin 5-325 mg Tablet PO SCH (13:28)
--- NOTE | 2016-10-16 16:27 | NUR ---
Social Work: Initial Assessment: EMR Reviewed. See Initial Assessment. Clean Room Assembler met with patient and patient's at bedside to discuss discharge plan and SW role explained. Patient's PCP is Joselo Rodriguez MD. Patient's insurance is Medicare and [employer] secondary. Patient , Natividad Catalan reports that she is his DPOA. SW requested a copy. Prior to admission patient lived at [facility] with his . Patient's reports that the patient has been bed bound four years and she has been his caregiver. Patient is currently on service with [facility]. Patient plans to return home with [facility]. SW will continue to follow. Plan: It is anticipated that patient will discharge home to [facility] with [facility]. SW will notify Naomi with [facility] when the patient discharges. SW will continue to follow. Shaka Chaudhari LMSW, [facility] Addendum: 10/16/16 at 1638 by SHAKA CHAUDHARI Amended: Links added.
--- NOTE | 2016-10-16 18:28 | NUR ---
Update Spoke with Dr. Lugo and he stated that he looked at the results of blood cultures and it appears that he is on the appropriate antibiotics and will not be able to see him. Updated pt with info. Pt happy that he may get to go home in AM. Care conts
--- NOTE | 2016-10-16 20:09 | PCM.PNMED ---
Subjective Date of Service Oct 16, 2016 Subjective Patient is feeling much better today, decreased coughing. No fevers. No chest pain, nausea vomiting, diarrhea or constipation. Staff reports some rectal bleeding with bowel movement. Exam Vital Signs Vital Sign - Last Date Time Temp Pulse Resp B/P Pulse Ox O2 Delivery O2 Flow Rate FiO2 10/16/16 19:24 36.6 55 17 128/77 95 Room Air Intake and Output 10/15/16 10/15/16 10/16/16 Cumulative From/Thru 15:00 23:00 07:00 10/14/16 04:47 - 10/16/16 05:53 Intake Total 765 ml 2220 ml 3211 ml Output Total 1200 ml 1450 ml 3750 ml Balance -435 ml 770 ml -539 ml Intake Oral 600 ml 300 ml 900 ml IV Total 165 ml 1920 ml 2311 ml Output Urine Total 1200 ml 1450 ml 3750 ml Exam General: Alert, Oriented X3, NAD Head: Normocephalic, atraumatic Eyes: KEVIN, EOMI, no scleral Icterus Chest: Basilar crackles, no wheezing Heart: Regular rate and rhythm. Normal S1, S2, no murmurs noted Abdomen: soft, non-tender. Bowel sounds are normoactive. No guarding or rebound. Extremities: no cyanosis, clubbing. Bilateral 2+ pitting edema in his lower extremities IVs and Medications Medications Reviewed: Medications were reviewed in detail Lab and Diagnostics Result Diagram: 10/16/16 0530 10/16/16 0530 Microbiology Urine culture preliminarily growing gram-negative rods likely Escherichia coli with identification and sensitivities to follow. Blood culture x 1 preliminarily growing gram-positive cocci resembling staph aureus with identification and sensitivities to follow. Streptococcus and Legionella urine antigen negative. . X-Rays, CTs and MRIs X-RAY CHEST ONE VIEW, PORTABLE IMPRESSION: Right basilar atelectasis versus pneumonia. Concordant with preliminary interpretation. Dictated by: Yisel Phan M.D. on 10/14/2016 at 8:44 Approved by: Yisel Phan M.D. on 10/14/2016 at 8:44 VENOUS LEG DUPLEX BILATERAL IMPRESSION: 1. Suboptimal examination because of the marked soft tissue edema. 2. Nonvisualization of the right femoral vein and popliteal vein, as well as the left femoral vein. Cannot rule out DVT. 3. Patient common femoral veins bilaterally and left popliteal vein. Dictated by: Selena Gomez M.D. on 10/14/2016 at 18:35 Approved by: Selena Gomez M.D. on 10/14/2016 at 18:35 X-RAY CHEST ONE VIEW, PORTABLE IMPRESSION: Slight interval increase in right basilar atelectasis versus pneumonia. Dictated by: Herson Page M.D. on 10/15/2016 at 8:41 Approved by: Herson Page M.D. on 10/15/2016 at 8:41 Cardiac Echo Impressions Echocardiogram Interpretation Summary: The left ventricle is normal in size, wall thickness, and systolic function without any focal wall motion abnormalities. The ejection fraction is estimated to be 60-65%. The right ventricle is not well visualized. The right ventricle grossly appears normal in size with probable normal systolic function. Right ventricular systolic pressure is estimated to be 21 mmHg plus the clinically estimated CVP which cannot be estimated on this exam. The left atrial size is normal. Right atrium not well visualized. There is mild aortic stenosis. The calculated aortic valve area is 1.8 cm2. There is no other significant valvular heart disease. The aortic root is normal size. Reading Physician:PM . Assessment & Plan Tristan Catalan is an 81-year-old male with a past medical history significant for CVA with residual right-sided hemiparesis, CAD, hypertension, atrial fibrillation and bilateral DVT's on chronic anticoagulation with warfarin who presented to [facility] ED via EMS for productive cough, wheezing, and shortness of breath. 1. Acute dyspnea, present on admission. Active. - Patient presented with dyspnea at rest with a non-productive cough. - Likely secondary to Community-acquired pneumonia (viral versus bacterial) 2. Acute viral upper respiratory tract infection, present on admission. Active. - Viral PCR positive for rhinovirus - Chest x-ray shows increasing right basilar opacities, as above. - DuoNeb every and albuterol every 2 hours as needed. - DVT, CHF not likely 3. Recurrent urinary tract infection, secondary to chronic indwelling early catheter, present on admission. Active. - Chronic indwelling Ovalle catheter changed this admission - Urine culture preliminarily growing gram-negative rods likely Escherichia coli with identification and sensitivities pending. - continue ceftriaxone and azithromycin. linezolid 600 mg every 12 hours for MRSA coverage. 4. Possible NSTEMI, present on admission. Active. -He received 48 hours of heparin, discontinued -Not likely , troponins remained stable and he denies any chest pain. Echocardiogram with no dyskinesia -Patient refuses further workup for CAD -Continue aspirin 81 mg daily, and atorvastatin 10 mg daily at bedtime. 5. Possible bacteremia, present on admission. Active. - Blood culture x1 preliminarily growing gram-positive cocci suspicious for Staphylococcus, as above. Possible contaminant - Ordered MRSA screen, pending. - Pending infectious disease recommendations, continue ceftriaxone and azithromycin. Added linezolid 600 mg every 12 hours for MRSA coverage. - Consulted Infectious Disease, Dr. Lugo. We appreciate his time and recommendations. Chronic Problems: Chronic atrial trial fibrillation, without RVR. - Continue home metoprolol 12.5 mg twice a day for rate control. Hypertension, chronic. - Continue triamterene/HCTZ 75-25 mg daily. Gout, chronic. - Continue allopurinol 100 mg daily. Chronic decubitus and lower extremity ulcers. - Likely secondary to immobility and decreased functional status due to right sided hemiparesis. - Continue home nystatin powder as needed. - Wound care consulted CODE STATUS: Limited intervention DVT prophylaxis: Anticoagulated on Coumadin Disposition: Patient receives excellent care from his , likely discharge home pending hospital course. . VTE Mechanical Devices: Intermittant Pneumatic CD Resuscitation Status: Limited Interventions (Chest compressions, Do not intubate.) Alexx Best DO Oct 16, 2016 20:09 Alexx Best DO Oct 16, 2016 20:09
[2016-10-16 21:52] LABS: INR 1.49 ratio
--- NOTE | 2016-10-16 22:42 | PCM.CONPHA ---
Assessment/Plan Assessment/Plan ANTICOAGULATION MANAGEMENT BY PHARMACY -INDICATION: AFIB, DVT HX -HOME DOSE: 2.5 MG TU,THU; 5 MG ALL OTHER DAYS -CONCURRENT ANTICOAGULATION: NONE -CRCL: 86 ML/MIN -COAG TRENDS: Date -Nov INR 1.49 -[id number] SCORE: 5 PLAN: Patient has been off Warfarin for past 2 days but was on a heparin drip which was d/c earlier this evening. Will give a 1 time dose tonight of 4 mg and serial IRS have been ordered to monitor. Pharmacy will continue to monitor and adjust dose as necessary. Thanks! ASHWINI LORENZO PHARMD Ashwini Lorenzo PharmD Oct 16, 2016 22:42
[2016-10-17] VITALS (9 sets, daily range): BP systolic 131–182; BP diastolic 76–85; PULSE 57–94; RESP 16–18; O2SAT 78–97
--- NOTE | 2016-10-17 03:52 | NUR ---
Pain c/o mild back pain x1 this shift. Prn pain rx given and effective with no further complaints.
[2016-10-17] MEDS: Albuterol-Ipratropium 3 mL Inhalation Solution NEB SCH ×4 (06:00→19:18)
[2016-10-17 06:52] LABS: Mean Corpuscular Hemoglobin 31.1 pg (27.0-35.0); Mean Corpuscular Volume 92.6 fL (81-100)
[2016-10-17 07:00] LABS: INR 1.47 ratio
[2016-10-17] MEDS: Azithromycin Inj 500 MG in Dextrose 5% w/Vial Mate 250 ML IV SCH (10:24)
[2016-10-17] MEDS: Polyethylene Glycol (PEG) 17 Gm Powder PO SCH (10:31)
[2016-10-17] MEDS: Linezolid Inj 600 MG in IV Premix 1 EACH IV SCH (11:57)
[2016-10-17] MEDS: oxyCODONE-Acetamin 5-325 mg Tablet PO SCH (12:10)
[2016-10-17] MEDS: cefTRIAXone Inj 2,000 MG in IV Premix 1 EACH IV SCH (13:08)
--- NOTE | 2016-10-17 14:31 | PCM.PHAPRO ---
Progress Dyspnea on exertion and cough. WARFARIN DOSING PER PHARMACY -INDICATION: AFIB, DVT HX -HOME DOSE: 2.5 MG ,THU; 5 MG ALL OTHER DAYS -CONCURRENT ANTICOAGULATION: NONE -CRCL: 86 ML/MIN -COAG TRENDS: Date -OCT 17-OCT INR 1.49 1.47 -[id number] SCORE: 5 PLAN: - Pt is currently subtherapeutic - Will give one dose of warfarin 4mg PO tonight - Pharmacy will continue to monitor INR/CBC/signs and symptoms of bleeding Sabra Hobbs PharmD Oct 17, 2016 14:31
[2016-10-17] MEDS: oxyCODONE-Acetamin 5-325 mg Tablet PO PRN (17:13)
--- NOTE | 2016-10-17 19:23 | NUR ---
Pain, Turning Patient had some pain intermittently during shift, well controlled with ordered pain medications. Patient was able to assist with turning, occasionally declined to turn at scheduled intervals, stating that he was comfortable and preferred to stay as he was. Care is ongoing.
--- NOTE | 2016-10-17 20:09 | PCM.PNMED ---
Subjective Date of Service Oct 17, 2016 Subjective Still well, breathing well. No chest pain, abdominal pain, diarrhea or constipation. Exam Vital Signs Vital Sign - Last Date Time Temp Pulse Resp B/P Pulse Ox O2 Delivery O2 Flow Rate FiO2 10/17/16 19:40 36.5 58 18 144/76 96 Room Air Intake and Output 10/16/16 10/16/16 10/17/16 Cumulative From/Thru 15:00 23:00 07:00 10/14/16 04:47 - 10/17/16 05:33 Intake Total 300 ml 350 ml 3861 ml Output Total 1425 ml 1500 ml 6675 ml Balance -1125 ml -1150 ml -2814 ml Intake Oral 300 ml 350 ml 1550 ml IV Total 0 ml 2311 ml Output Urine Total 1425 ml 1500 ml 6675 ml # Bowel Movements 0 0 0 Exam General: Alert, Oriented X3, NAD Head: Normocephalic, atraumatic Eyes: KEVIN, EOMI, no scleral Icterus Chest: clear to auscultation B/L, no wheezing rales or rhonchi Heart: Regular rate and rhythm. Normal S1, S2, no murmurs noted Abdomen: soft, non-tender. Bowel sounds are normoactive. No guarding or rebound. Extremities: no cyanosis, clubbing or edema. IVs and Medications Medications Reviewed: Medications were reviewed in detail Lab and Diagnostics Result Diagram: 10/17/1615 10/17/16 0615 Microbiology Urine culture preliminarily growing gram-negative rods likely Escherichia coli with identification and sensitivities to follow. Blood culture x 1 preliminarily growing gram-positive cocci resembling staph aureus with identification and sensitivities to follow. Streptococcus and Legionella urine antigen negative. . X-Rays, CTs and MRIs X-RAY CHEST ONE VIEW, PORTABLE IMPRESSION: Right basilar atelectasis versus pneumonia. Concordant with preliminary interpretation. Dictated by: Yisel Phan M.D. on 10/14/2016 at 8:44 Approved by: Yisel Phan M.D. on 10/14/2016 at 8:44 US VENOUS LEG DUPLEX BILATERAL IMPRESSION: 1. Suboptimal examination because of the marked soft tissue edema. 2. Nonvisualization of the right femoral vein and popliteal vein, as well as the left femoral vein. Cannot rule out DVT. 3. Patient common femoral veins bilaterally and left popliteal vein. Dictated by: Selena Gomez M.D. on 10/14/2016 at 18:35 Approved by: Selena Gomez M.D. on 10/14/2016 at 18:35 X-RAY CHEST ONE VIEW, PORTABLE IMPRESSION: Slight interval increase in right basilar atelectasis versus pneumonia. Dictated by: Herson Page M.D. on 10/15/2016 at 8:41 Approved by: Herson Page M.D. on 10/15/2016 at 8:41 Cardiac Echo Impressions Echocardiogram Interpretation Summary: The left ventricle is normal in size, wall thickness, and systolic function without any focal wall motion abnormalities. The ejection fraction is estimated to be 60-65%. The right ventricle is not well visualized. The right ventricle grossly appears normal in size with probable normal systolic function. Right ventricular systolic pressure is estimated to be 21 mmHg plus the clinically estimated CVP which cannot be estimated on this exam. The left atrial size is normal. Right atrium not well visualized. There is mild aortic stenosis. The calculated aortic valve area is 1.8 cm2. There is no other significant valvular heart disease. The aortic root is normal size. Reading Physician:PM . Assessment & Plan Tristan Catalan is an 81-year-old male with a past medical history significant for CVA with residual right-sided hemiparesis, CAD, hypertension, atrial fibrillation and bilateral DVT's on chronic anticoagulation with warfarin who presented to [facility] ED via EMS for productive cough, wheezing, and shortness of breath. 1. Acute dyspnea, present on admission. Active. - Patient presented with dyspnea at rest with a non-productive cough. - Likely secondary to Community-acquired pneumonia (viral versus bacterial) -He is on room air 2. Acute viral upper respiratory tract infection, present on admission. Active. - Viral PCR positive for rhinovirus - Chest x-ray shows increasing right basilar opacities, as above. - DuoNeb every and albuterol every 2 hours as needed. - DVT, CHF not likely 3. Recurrent urinary tract infection, secondary to chronic indwelling early catheter, present on admission. Active. - Chronic indwelling Ovalle catheter changed this admission - Urine culture growing ESBL Escherichia coli, started on ertapenem - Consult infectious disease, I discussed the patient with Dr. Lugo 4. Possible NSTEMI, present on admission. Active. -He received 48 hours of heparin, discontinued -Not likely , troponins remained stable and he denies any chest pain. Echocardiogram with no dyskinesia -Patient refuses further workup for CAD -Continue aspirin 81 mg daily, and atorvastatin 10 mg daily at bedtime. 5. Possible bacteremia, present on admission. Active. - Blood culture x1 positive for coagulase negative staph. Presumed contaminant. -Discontinue Zyvox Chronic Problems: Chronic atrial trial fibrillation, without RVR. - Continue home metoprolol 12.5 mg twice a day for rate control. Hypertension, chronic. - Continue triamterene/HCTZ 75-25 mg daily. Gout, chronic. - Continue allopurinol 100 mg daily. Chronic decubitus and lower extremity ulcers. - Likely secondary to immobility and decreased functional status due to right sided hemiparesis. - Continue home nystatin powder as needed. - Wound care consulted CODE STATUS: Limited intervention DVT prophylaxis: Anticoagulated on Coumadin Disposition: Patient receives excellent care from his , likely discharge home pending hospital course. . VTE Mechanical Devices: Intermittant Pneumatic CD Resuscitation Status: Limited Interventions (Chest compressions, Do not intubate.) Alexx Best DO Oct 17, 2016 20:09
[2016-10-18] VITALS (7 sets, daily range): BP systolic 126–165; BP diastolic 70–82; PULSE 57–69; RESP 16; O2SAT 94–98
--- NOTE | 2016-10-18 04:09 | NUR ---
Less sleep/ Turning Pt. often declines turning states "I am comfortable". When coming into the room later in the night, pt. was wide awake. Pt. states "I'm in no pain. I just can't sleep". Pt. was offered to be turned in bed, but declined. Will continue to monitor.
[2016-10-18] MEDS: oxyCODONE-Acetamin 5-325 mg Tablet PO PRN ×2 (05:02→17:19)
[2016-10-18] MEDS: Albuterol-Ipratropium 3 mL Inhalation Solution NEB SCH ×2 (06:00→08:45)
[2016-10-18 06:49] LABS: BASOPHILS % (AUTO) 0.7 % (0-3); EOSINOPHILS % (AUTO) 3.1 % (0-5); MONOCYTES % (AUTO) 12.8 % (4-12); Mean Corpuscular Hemoglobin 31.4 pg (27.0-35.0); NEUTROPHILS % (AUTO) 73.8 % (40-74); Platelet Count 160 bil/L (150-400)
[2016-10-18 06:56] LABS: INR 1.7 ratio
[2016-10-18] MEDS: Ertapenem Inj 1,000 MG in 0.9% Sodium Chloride 50 ML IV SCH (08:37)
[2016-10-18] MEDS: Polyethylene Glycol (PEG) 17 Gm Powder PO SCH (08:38)
--- NOTE | 2016-10-18 08:46 | NUR ---
Respiratory Pt refused med. Stated "I'm breathing fine, I don't need it or want it." Rt let Pt know if ever he feels like he does a Tx is available.
[2016-10-18] MEDS: Azithromycin Inj 500 MG in Dextrose 5% w/Vial Mate 250 ML IV SCH (09:58)
[2016-10-18] MEDS: oxyCODONE-Acetamin 5-325 mg Tablet PO SCH (12:17)
--- NOTE | 2016-10-18 17:22 | NUR ---
Pain, Turning Patient continues to have some pain in his right leg. Patient states that pain is controlled well with ordered pain medications. Patient occasionally declines turns, stating that he is "comfortable as he is". Care is ongoing.
--- NOTE | 2016-10-18 19:01 | PCM.PNMED ---
Subjective Date of Service Oct 18, 2016 Subjective Feeling well today, no chest pain nausea vomiting diarrhea or constipation. Exam Vital Signs Vital Sign - Last Date Time Temp Pulse Resp B/P Pulse Ox O2 Delivery O2 Flow Rate FiO2 10/18/16 11:15 36.5 66 16 135/76 98 Room Air Intake and Output 10/17/16 10/17/16 10/18/16 Cumulative From/Thru 15:00 23:00 07:00 10/14/16 04:47 - 10/18/16 06:39 Intake Total 1300 ml 150 ml 5311 ml Output Total 1700 ml 1775 ml 20789 ml Balance -400 ml -1625 ml -4839 ml Intake Oral 800 ml 150 ml 2500 ml IV Total 500 ml 2811 ml Output Urine Total 1700 ml 1775 ml 34997 ml # Bowel Movements 1 1 Exam General: Alert, Oriented X3, NAD Head: Normocephalic, atraumatic Eyes: KEVIN, EOMI, no scleral Icterus Chest: clear to auscultation B/L, no wheezing rales or rhonchi Heart: Regular rate and rhythm. Normal S1, S2, no murmurs noted Abdomen: soft, non-tender. Bowel sounds are normoactive. No guarding or rebound. Extremities: no cyanosis, clubbing or edema. IVs and Medications Medications Reviewed: Medications were reviewed in detail Lab and Diagnostics Result Diagram: 10/18/16 0603 10/18/16 0603 Microbiology Urine culture preliminarily growing gram-negative rods likely Escherichia coli with identification and sensitivities to follow. Blood culture x 1 preliminarily growing gram-positive cocci resembling staph aureus with identification and sensitivities to follow. Streptococcus and Legionella urine antigen negative. . X-Rays, CTs and MRIs X-RAY CHEST ONE VIEW, PORTABLE IMPRESSION: Right basilar atelectasis versus pneumonia. Concordant with preliminary interpretation. Dictated by: Yisel Phan M.D. on 10/14/2016 at 8:44 Approved by: Yisel Phan M.D. on 10/14/2016 at 8:44 US VENOUS LEG DUPLEX BILATERAL IMPRESSION: 1. Suboptimal examination because of the marked soft tissue edema. 2. Nonvisualization of the right femoral vein and popliteal vein, as well as the left femoral vein. Cannot rule out DVT. 3. Patient common femoral veins bilaterally and left popliteal vein. Dictated by: Selena Gomez M.D. on 10/14/2016 at 18:35 Approved by: Selena Gomez M.D. on 10/14/2016 at 18:35 X-RAY CHEST ONE VIEW, PORTABLE IMPRESSION: Slight interval increase in right basilar atelectasis versus pneumonia. Dictated by: Herson Page M.D. on 10/15/2016 at 8:41 Approved by: Herson Page M.D. on 10/15/2016 at 8:41 Cardiac Echo Impressions Echocardiogram Interpretation Summary: The left ventricle is normal in size, wall thickness, and systolic function without any focal wall motion abnormalities. The ejection fraction is estimated to be 60-65%. The right ventricle is not well visualized. The right ventricle grossly appears normal in size with probable normal systolic function. Right ventricular systolic pressure is estimated to be 21 mmHg plus the clinically estimated CVP which cannot be estimated on this exam. The left atrial size is normal. Right atrium not well visualized. There is mild aortic stenosis. The calculated aortic valve area is 1.8 cm2. There is no other significant valvular heart disease. The aortic root is normal size. Reading Physician:PM . Assessment & Plan Tristan Catalan is an 81-year-old male with a past medical history significant for CVA with residual right-sided hemiparesis, CAD, hypertension, atrial fibrillation and bilateral DVT's on chronic anticoagulation with warfarin who presented to [facility] ED via EMS for productive cough, wheezing, and shortness of breath. 1. Acute dyspnea, present on admission. Active. - Patient presented with dyspnea at rest with a non-productive cough. - Likely secondary to Community-acquired pneumonia (viral versus bacterial) - He is on room air 2. Acute pneumonia and viral upper respiratory tract infection, present on admission. Active. - Viral PCR positive for rhinovirus - Chest x-ray shows increasing right basilar opacities, as above. - DuoNeb every and albuterol every 2 hours as needed. - DVT, CHF not likely -Initially treated with Rocephin and azithromycin, Rocephin was discontinued and ertapenem was added. 3. Recurrent urinary tract infection, secondary to chronic indwelling early catheter, present on admission. Active. - Chronic indwelling Ovalle catheter changed this admission - Urine culture growing ESBL Escherichia coli, started on ertapenem - Consult infectious disease, I discussed the patient with Dr. Lugo who will weigh in on duration and antibiotic of choice. 4. Possible NSTEMI, present on admission. Active. -He received 48 hours of heparin, discontinued -Not likely , troponins remained stable and he denies any chest pain. Echocardiogram with no dyskinesia -Patient refuses further workup for CAD -Continue aspirin 81 mg daily, and atorvastatin 10 mg daily at bedtime. 5. Positive blood culture. - Blood culture x1 positive for coagulase negative staph. Presumed contaminant. -Discontinue Zyvox Chronic Problems: Chronic atrial trial fibrillation, without RVR. - Continue home metoprolol 12.5 mg twice a day for rate control. Hypertension, chronic. - Continue triamterene/HCTZ 75-25 mg daily. Gout, chronic. - Continue allopurinol 100 mg daily. Chronic decubitus and lower extremity ulcers. - Likely secondary to immobility and decreased functional status due to right sided hemiparesis. - Continue home nystatin powder as needed. - Wound care consulted CODE STATUS: Limited intervention DVT prophylaxis: Anticoagulated on Coumadin Disposition: Patient receives excellent care from his , likely discharge home pending hospital course and antibiotic recommendations . VTE Mechanical Devices: Intermittant Pneumatic CD Resuscitation Status: Limited Interventions (Chest compressions, Do not intubate.) Alexx Best DO Oct 18, 2016 19:01
[2016-10-19] VITALS (7 sets, daily range): BP systolic 138–158; BP diastolic 70–79; PULSE 55–73; RESP 15–16; O2SAT 94–98
[2016-10-19] MEDS: oxyCODONE-Acetamin 5-325 mg Tablet PO PRN ×3 (00:26→22:14)
--- NOTE | 2016-10-19 02:45 | NUR ---
turns pain pt declines turning when attempted. Prefers to be on left side. Pain increased overnight mostly in left knee. Josue CALI who changes Percocet orders to PRN Q4. 1Tab seems to work well for paints pain. Care continues
[2016-10-19 07:23] LABS: INR 1.91 ratio
[2016-10-19] MEDS: Polyethylene Glycol (PEG) 17 Gm Powder PO SCH (07:44)
[2016-10-19] MEDS: Ertapenem Inj 1,000 MG in 0.9% Sodium Chloride 50 ML IV SCH (07:56)
[2016-10-19] MEDS ORDERED: 0.9% Sodium Chloride 250 ML ONE (07:59)
[2016-10-19] MEDS: Azithromycin Inj 500 MG in Dextrose 5% w/Vial Mate 250 ML IV SCH (09:19)
--- NOTE | 2016-10-19 16:58 | CONS ---
[address] [address] CONSULTATION REPORT PATIENT: MITCHELL ROSENTHAL : 1935 MR#: [id number] ADMIT: 10/14/2016 JOB ID: [id number] DATE OF SERVICE: 10/19/[address] Alexx Best for this consult. REASON FOR CONSULT: ESBL E. coli UTI and RSV bronchitis. HISTORY OF THE PRESENT ILLNESS: The patient is an unfortunate, 88-year-old, retired [employer] who four years ago suffered a devastating stroke that left him with right hemiplegia and a neurogenic bladder. Since then, he has been basically in bed with a Ovalle catheter. Despite this health disaster, he has been fairly happy and able to live in his home in the local area with his . He reports that in the days leading up to his admission on October 14, he had two or three days of shortness of breath with a nonproductive cough. This was noted by his visiting home nurse and he was referred to the emergency department and subsequently admitted. He reports that prior to his admission on October 14 he had absolutely no fevers or chills. He additionally denies any suprapubic or abdominal pain. He states that he had a dry cough but was not terribly short of breath except a little bit after he had his dinner each evening. He was also somewhat anxious. Since admission during his five days here in the hospital, the patient reports he continues to be free of any fevers, chills or sweats. His cough has gradually improved and he has now reached the point where he hopes he can go home. He has no abdominal or GI symptoms and has not noticed any skin rash. PAST MEDICAL HISTORY: 1. 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 2. Ovalle catheter since 2010 with history of recurrent UTIs. 3. Organic heart disease a. AFib. b. Coronary artery disease. c. Status post myocardial infarction. 4. Hypertension. 5. Hyperlipidemia. 6. Renal cell carcinoma. SOCIAL HISTORY: The patient is a retired [employer] placement who lives in [place] with his . He has nearby children as well. He smoked early in his life but has not smoked in decades. He does not drink alcohol and he has not basically left the home except to go to doctor's appointments for four years. FAMILY HISTORY: Reviewed but was noncontributory. REVIEW OF SYSTEMS: No significant headache or sinus complaint. No visual change. No trouble swallowing. No sore throat. Minimal dry cough at this point, which has almost completely resolved. He is not short of breath but, of course, we cannot assess what it is like with exertion as he is unable to walk or really move around. No nausea or vomiting. He has noticed a couple of loose stools here in the hospital. No change in his right-sided hemiparesis. Left-side functioning normally. No notable skin rashes and no problems with his Ovalle catheter which is chronic. PHYSICAL EXAM: Temperature 36.3, pulse 70, respiratory rate 15, blood pressure 155/79. He is saturating well on room air. Examination of the eyes without conjunctivitis or scleral icterus. Oral cavity: No thrush or pharyngitis. Neck is a bit stiff perhaps, but it seems to be chronic. No associated adenopathy or JVD is noted. Lungs: Relatively clear bilaterally with a few inspiratory crackles perhaps. Cardiac exam: Irregular rate and rhythm without notable murmur. Abdomen: Soft and nontender. There is no suprapubic fullness, no organomegaly and no ascites. The patient's right side is flaccid essentially. He has a Ovalle catheter which is present. There is no inflammation or cellulitis visible in the groin or pubic areas. The extremities are flexed and without evidence of edema or cellulitis though there is obviously muscle atrophy. LABORATORY: Labs include white count 6900, hematocrit 44, platelet count 160,000 which was low when he came in and has normalized, creatinine 0.99. Procalcitonins have been measured three times. The initial one October 14 was 0, but on October 15 was 0.2 and one today is 0.14. All are, of course, less than 0.25. A BNP on admission was 2600. Serologic studies include negative urine Legionella and pneumococcal antigen. Urinalysis was packed with white cells at the time of admission. Micro studies include nasal MRSA screen which is negative, a multiplex respiratory PCR which was positive for rhinovirus, enterovirus. A single blood culture that grew coag-negative staph which is almost certainly a contaminant in the urine which grew a multi-drug resistant E. coli really only sensitive to carbapenems, nitrofurantoin and aminoglycosides. IMPRESSION: This unfortunate gentleman who suffered a massive stroke 4-1/2 years ago is now admitted with what sounds like a respiratory tract infection. His urine culture was packed with white cells when he came in and the culture grew any extended-spectrum beta-lactamase (ESBL) Escherichia coli, but he was not on any drug to treat the ESBL E. coli for several days as the resistance pattern was not yet available and yet he was steadily improving. At this point, the patient feels basically back to his baseline despite only having been on the ertapenem for a day or two. It would seem that his main cause of his respiratory issues prior to admission was his respiratory tract infection with a virus. The pyuria and ESBL E. coli found in the urine probably represents a true urinary tract infection, but I suspect a lower urinary tract infection. I discussed his case with Dr. Best by telephone yesterday while I was [facility] and was unable to see the patient until today. My opinion yesterday was we probably need 10 days of IV ertapenem for this severe ESBL E. coli urinary tract infection, but in looking at the patient and his labs today, I think this is primarily a lower urinary tract process and would probably be amenable to treatment with nitrofurantoin. RECOMMENDATIONS: 1. I would continue the ertapenem for another day or two here in the hospital perhaps concluding three days of therapy tomorrow, October 20. 2. Following the completion of three days or so of ertapenem, I think the patient could be discharged on nitrofurantoin for another full week to complete a total of 10 days or so of treatment for this. 3. There is no specific therapy for his enteroviral/rhinoviral respiratory tract infection and this should run its course over the next few days. 4. I suspect the patient can be discharged as soon as tomorrow given his very stable and benign appearance.
--- NOTE | 2016-10-19 18:00 | PCM.PNMED ---
Subjective Date of Service Oct 19, 2016 Subjective says overall feeling better Exam Vital Signs Vital Sign - Last Date Time Temp Pulse Resp B/P Pulse Ox O2 Delivery O2 Flow Rate FiO2 10/19/16 16:20 36.5 68 16 158/77 97 Room Air Intake and Output 10/18/16 10/18/16 10/19/16 Cumulative From/Thru 15:00 23:00 07:00 10/14/16 04:47 - 10/19/16 06:01 Intake Total 1050 ml 300 ml 6661 ml Output Total 800 ml 975 ml 17489 ml Balance 250 ml -675 ml -5264 ml Intake Oral 750 ml 300 ml 3550 ml IV Total 300 ml 3111 ml Output Urine Total 800 ml 975 ml 13097 ml # Bowel Movements 1 0 2 General: Alert, Oriented X3, Cooperative, No Acute Distress Eyes: Scleral Anicteric Mouth: Mucous Membr Moist/[place] Neck: Supple Chest & Lungs: Chest Wall Normal, Coarse breath sounds (mild bilat) Cardiovascular: Regular Rate/Rhythm Abdomen: Non-tender, Non-distended, Normoactive bowel tones Extremities: Other (2+ pitting edema in LE bilat) Neurological: Normal Speech, Other (right UE and LE paralysis) IVs and Medications Medications Reviewed: Medications were reviewed in detail Lab and Diagnostics Result Diagram: 10/19/1662510/19/16625 Microbiology Urine culture preliminarily growing gram-negative rods likely Escherichia coli with identification and sensitivities to follow. Blood culture x 1 preliminarily growing gram-positive cocci resembling staph aureus with identification and sensitivities to follow. Streptococcus and Legionella urine antigen negative. . X-Rays, CTs and MRIs X-RAY CHEST ONE VIEW, PORTABLE IMPRESSION: Right basilar atelectasis versus pneumonia. Concordant with preliminary interpretation. Dictated by: Yisel Phan M.D. on 10/14/2016 at 8:44 Approved by: Yisel Phan M.D. on 10/14/2016 at 8:44 US VENOUS LEG DUPLEX BILATERAL IMPRESSION: 1. Suboptimal examination because of the marked soft tissue edema. 2. Nonvisualization of the right femoral vein and popliteal vein, as well as the left femoral vein. Cannot rule out DVT. 3. Patient common femoral veins bilaterally and left popliteal vein. Dictated by: Selena Gomez M.D. on 10/14/2016 at 18:35 Approved by: Selena Gomez M.D. on 10/14/2016 at 18:35 X-RAY CHEST ONE VIEW, PORTABLE IMPRESSION: Slight interval increase in right basilar atelectasis versus pneumonia. Dictated by: Herson Page M.D. on 10/15/2016 at 8:41 Approved by: Herson Page M.D. on 10/15/2016 at 8:41 Cardiac Echo Impressions Echocardiogram Interpretation Summary: The left ventricle is normal in size, wall thickness, and systolic function without any focal wall motion abnormalities. The ejection fraction is estimated to be 60-65%. The right ventricle is not well visualized. The right ventricle grossly appears normal in size with probable normal systolic function. Right ventricular systolic pressure is estimated to be 21 mmHg plus the clinically estimated CVP which cannot be estimated on this exam. The left atrial size is normal. Right atrium not well visualized. There is mild aortic stenosis. The calculated aortic valve area is 1.8 cm2. There is no other significant valvular heart disease. The aortic root is normal size. Reading Physician:PM . Assessment & Plan 81-year-old male with a past medical history significant for CVA with residual right-sided hemiparesis, CAD, hypertension, atrial fibrillation and bilateral DVT's on chronic anticoagulation with warfarin who presented to [facility] ED via EMS for productive cough, wheezing, and shortness of breath. 1. Acute dyspnea, present on admission. improving - Patient presented with dyspnea at rest with a non-productive cough. - Suspected bacterial Community-acquired pneumonia on admission seems less likely - c/w supportive care 2. Acute pneumonia and viral upper respiratory tract infection, present on admission. improving. - Viral PCR positive for Rhinovirus - Chest x-ray shows increasing right basilar opacities, as above. - DuoNeb every and albuterol every 2 hours as needed. - Initially treated with Rocephin and azithromycin, Rocephin was discontinued and ertapenem was added. - appreciate ID consult. will f/u w/ recs 3. Recurrent urinary tract infection, secondary to chronic indwelling early catheter, present on admission. Active. - Chronic indwelling Ovalle catheter changed this admission - Urine culture growing ESBL Escherichia coli, started on ertapenem - ID recs as noted above 4. Possible NSTEMI, present on admission. Active. - He received 48 hours of heparin, discontinued - Not likely , Troponin remained stable and he denies any chest pain. Echocardiogram with no dyskinesia - Patient refuses further workup for CAD - Continue aspirin 81 mg daily, and atorvastatin 10 mg daily at bedtime. 5. Positive blood culture. - Blood culture x1 positive for coagulase negative staph. Presumed contaminant. Chronic Problems: Chronic atrial trial fibrillation, without RVR. - Continue home metoprolol 12.5 mg twice a day for rate control. Hypertension, chronic. - Continue triamterene/HCTZ 75-25 mg daily. Gout, chronic. - Continue allopurinol 100 mg daily. Chronic decubitus and lower extremity ulcers. - Likely secondary to immobility and decreased functional status due to right sided hemiparesis. - Continue home nystatin powder as needed. - Wound care consulted Dispo: likely tomorrow VTE Mechanical Devices: Intermittant Pneumatic CD Resuscitation Status: Limited Interventions (Chest compressions, Do not intubate.) Time spent 35 min Paul Encarnacion Oct 19, 2016 18:00
--- NOTE | 2016-10-19 18:47 | NUR ---
Activity.BM Pt bedrest at baseline d/t previous CVA with right side affected. Pt A&Ox3, makes no attempt to get OOB. LE and heels elevated on pillows. Pt incont of BM this AM, soft light brown; pt called and was cleaned up. Offered bedpan for any more BM. Pt stating not feeling the need at that time. Pt again called around lunchtime and again stated that he had been incontinent, appearing less formed with mucous. Pt later on bedpan and per [employer], not quite diarrhea, but not formed either. Brief remains in place. Care continues.
[2016-10-20 00:26] VITALS: BP 133/71; PULSE 55; RESP 16; O2SAT 97
--- NOTE | 2016-10-20 03:58 | NUR ---
GI Pt incontinent of diarrhea x 1. Skin of buttocks appears without concerns, scrotum reddened; barrier wipes used for skin protection. Q2 hour turns for skin care, right side weakness unchanged. Hourly rounding ongoing.
[2016-10-20 04:52] VITALS: BP 143/69; PULSE 58; RESP 16; O2SAT 94
[2016-10-20 06:45] LABS: INR 2.14 ratio
[2016-10-20] MEDS: Ertapenem Inj 1,000 MG in 0.9% Sodium Chloride 50 ML IV SCH (07:56)
[2016-10-20] MEDS: oxyCODONE-Acetamin 5-325 mg Tablet PO PRN (07:57)
[2016-10-20] MEDS: Polyethylene Glycol (PEG) 17 Gm Powder PO SCH (07:58)
[2016-10-20 08:00] VITALS: PULSE 85
[2016-10-20] MEDS: Azithromycin Inj 500 MG in Dextrose 5% w/Vial Mate 250 ML IV SCH (08:59)
--- NOTE | 2016-10-20 09:01 | PCM.PHAPRO ---
Progress Warfarin Management by Pharmacy: -Indication: afib, dvt history -Home Dose: 2.5mg on Tu,Fr and 5mg aod -[id number] [facility] [place]: [place]16 Inr 1.49 warfarin 4mg 6 Inr 1.47 warfarin 4mg 10/18 Inr 1.7 warfarin 4mg 10/19 Inr 1.91 warfarin 4mg 10/20 Inr 2.14 -Plan: will continue with 4mg dose this evening and follow. pt is still receiving Azithromycin which can increase the inr. [facility] Oct 20, 2016 09:00
[2016-10-20 09:31] VITALS: BP 143/76; PULSE 58; RESP 16; O2SAT 96
--- NOTE | 2016-10-20 11:19 | PCM.DIMED ---
Discharge Instructions Date of Service Oct 20, 2016 Dates of Hospitalization Oct 14, 2016 at 07:22 Discharge Diagnosis Discharge Diagnosis 1. Acute dyspnea, present on admission. improved 2. Acute upper respiratory infection and possible viral pneumonia with Rhinovirus, present on admission. improving. 3. Recurrent urinary tract infection, secondary to chronic indwelling Ovalle catheter, present on admission. Active. - Urine culture growing ESBL Escherichia Coli 4. Possible NSTEMI (myocardial infarction), present on admission vs acute demand ischemia resulting in mildly elevated Troponin - Echocardiogram showing ejection fraction of 60-65% without significant focal wall motion abnormality Chronic Problems: # Chronic atrial trial fibrillation, without RVR. Hypertension, chronic. stable. # Gout, chronic. # Chronic decubitus and lower extremity ulcers. Diet Low fat, Low Sodium, Heart Healthy Activity Home Health Phyical Therapy, Other (as tolerated.) Call your provider Fever or Chills, Shortness of breath, Bleeding, Chest pain, Vomitting, Excessive diarrhea Patient Instructions Seek immediate medical attention if any new or worsening signs or symptoms occur. Follow-up plan 1. Followup with primary care provider in 5-10 days Follow-up Provider: Joselo Schmitt MD, [place] Oct 20, 2016 11:19
--- NOTE | 2016-10-20 12:56 | NUR ---
Arranged S transport for 1345 via [facility] patient is returning home with .
--- NOTE | 2016-10-20 14:46 | NUR ---
Discharge Pt discharged back to home via BLS transfer; A&Ox3, MICHAELS - limited to little to R side d/t CVA. IV dc'd intact and Claire, SONIA paperwork completed by hair salon manager Didi Adelita. without questions. All belongings in hand. No scripts. Tele dc'd. Left via [facility] at 1350.
--- NOTE | 2016-10-20 15:47 | PROG NOTE ---
[address] [address] PROGRESS NOTE PATIENT: MITCHELL ROSENTHAL : 1935 MR#: [id number] ADMIT: 10/14/2016 JOB ID: [id number] DATE: 10/20/2016 REASON FOR FOLLOWUP: Multi-drug resistant E. coli. ESBL UTI and viral URI. INTERVAL HISTORY: Overnight, the patient has felt quite well. He has had no additional fevers, chills, or sweats. No significant cough nor shortness of breath. He has had no GI symptoms. He has a Ovalle catheter and experiences no symptoms. PHYSICAL EXAMINATION: Reveals an afebrile gentleman, temp 36.8, pulse 58, respiratory rate 16, blood pressure 143/76, saturating well on room air. He is awake, alert, and completely comfortable. Lungs are clear. Right side is hemiplegic as before. Ovalle catheter is present. Lungs relatively clear bilaterally. No rales or rhonchi are heard. Abdomen benign. No skin rash noted. LABORATORIES: Include white count 6900. Creatinine 0.99. MRSA screen was negative. Nasopharyngeal PCR study positive for enterovirus/rhinovirus, and urine grew the ESBL E coli, as was discussed yesterday. IMPRESSION: This patient has done well and I think that he can reasonably be transitioned to oral therapy and discharged today. He had an ESBL E. coli urinary tract infection which occurred in the setting of taking ongoing Keflex for several months in an effort to prevent recurrent urinary tract infections. It is likely that the Keflex is selecting for more resistant organisms in this very difficult situation. The patient also had enteroviral or rhinoviral upper respiratory tract infection which is spontaneously improving. RECOMMENDATIONS: 1. I think the patient could reasonably be discharged today on a course of nitrofurantoin to last for another 10 days or so for this urinary tract infection. It is not clear to me where this is an upper or lower tract infection, but the weight it is behaving, it is more of a lower tract UTI. Because of his abnormal anatomy with a neurogenic bladder and the Ovalle which cannot be removed, I think it is reasonable to give a little longer course of nitrofurantoin. 2. I gave the patient's my card and I will be glad to talk to them about their urinary tract infection prophylaxis issues going forward as required. Thank you very much. Note that I will be signing off.
--- NOTE | 2016-10-20 16:01 | NUR ---
Social Work Discharge D: EMR reviewed. Pt is on day 6 of hospitalization. Pt is medically stable and discharging home today via [facility], BLS with resume [facility]. MIRTHA faxed discharge orders for resumption to [facility] and called to update on Pt's discharge and confirmed receipt of fax. Pt is bed bound at baseline and provides caregiving. A: Pt who is bed bound, as caregiver P: Pt is medically stable and discharging home today via [facility], BLS with resume [facility]. MIRTHA faxed discharge orders for resumption to [facility] and called to update on Pt's discharge and confirmed receipt of fax. Pt is bed bound at baseline and provides caregiving. EMILIANA Sandhu
--- NOTE | 2016-10-20 17:40 | PCM.DC.MED ---
Discharge Summary Date of Service Oct 20, 2016 Dates of Hospitalization Date of Hospital Admission Oct 14, 2016 at 07:22 Date of Discharge: Oct 20, 2016 Providers: Admitting Physician: Chuy Donovan MD Primary Care Physician: Joselo Schmitt MD Attending Physician: Chuy Donovan MD Diagnosis at Time of Discharge Diagnosis at Time of Discharge 1. Acute dyspnea, present on admission. improved 2. Acute upper respiratory infection and possible viral pneumonia with Rhinovirus, present on admission. improving. 3. Recurrent urinary tract infection, secondary to chronic indwelling Ovalle catheter, present on admission. Active. - Urine culture growing ESBL Escherichia Coli 4. Possible NSTEMI (myocardial infarction), present on admission vs acute demand ischemia resulting in mildly elevated Troponin - Echocardiogram showing ejection fraction of 60-65% without significant focal wall motion abnormality Chronic Problems: # Chronic atrial trial fibrillation, without RVR. Hypertension, chronic. stable. # Gout, chronic. # Chronic decubitus and lower extremity ulcers. Consultations 1. ID (Dr. Lugo) Procedures XRay, CTs & MRIs X-RAY CHEST ONE VIEW, PORTABLE IMPRESSION: Right basilar atelectasis versus pneumonia. Concordant with preliminary interpretation. Dictated by: Yisel Phan M.D. on 10/14/2016 at 8:44 Approved by: Yisel Phan M.D. on 10/14/2016 at 8:44 X-RAY CHEST ONE VIEW, PORTABLE IMPRESSION: Slight interval increase in right basilar atelectasis versus pneumonia. Dictated by: Herson Page M.D. on 10/15/2016 at 8:41 Approved by: Herson Page M.D. on 10/15/2016 at 8:41 Cardiac Echo Impression Echocardiogram Interpretation Summary: The left ventricle is normal in size, wall thickness, and systolic function without any focal wall motion abnormalities. The ejection fraction is estimated to be 60-65%. The right ventricle is not well visualized. The right ventricle grossly appears normal in size with probable normal systolic function. Right ventricular systolic pressure is estimated to be 21 mmHg plus the clinically estimated CVP which cannot be estimated on this exam. The left atrial size is normal. Right atrium not well visualized. There is mild aortic stenosis. The calculated aortic valve area is 1.8 cm2. There is no other significant valvular heart disease. The aortic root is normal size. Reading Physician:PM . Other Diagnostics US VENOUS LEG DUPLEX BILATERAL IMPRESSION: 1. Suboptimal examination because of the marked soft tissue edema. 2. Nonvisualization of the right femoral vein and popliteal vein, as well as the left femoral vein. Cannot rule out DVT. 3. Patient common femoral veins bilaterally and left popliteal vein. Dictated by: Selena Gomez M.D. on 10/14/2016 at 18:35 Approved by: Selena Gomez M.D. on 10/14/2016 at 18:35 Brief History As noted in H&P by Dr. Burciaga: Mr. Tristan Catalan is an 81 year old gentleman with history of Afib, VA, DVT, and stroke with residual right sided hemiparesis. He has been bed-bound for 4 years. For about a month, patient gets short of breath 2 hours after eating his early dinner around 3pm. He says he turns the ceiling fan on, and it gets better. He is seen by [facility], and nurse yesterday had no concerns other than possible abnormal lung sounds at right base. He has not slept well for the last 3 days, and around 3 am this morning he came down with a non- productive cough with severe shortness of breath and weakness. He also reports feeling anxious. His called 911 and was brought to [facility] ED. He received duoneb and albuterol treatment in ED. He says this loosened the mucous in his lungs, but that he still cannot bring it up. Hospital Course 1. Acute dyspnea, present on admission. improved - Patient presented with dyspnea at rest with a non-productive cough. - Suspected bacterial Community-acquired pneumonia on admission seems less likely - c/w supportive care 2. Acute pneumonia and viral upper respiratory tract infection, present on admission. Improved - Viral PCR positive for Rhinovirus - Chest x-ray shows increasing right basilar opacities, as above. - DuoNeb every and albuterol every 2 hours as needed. - Initially treated with Rocephin and azithromycin, Rocephin was discontinued and ertapenem was added which is also being stopped on day of d/c. - appreciate ID consult. will f/u w/ recs 3. Recurrent urinary tract infection, secondary to chronic indwelling early catheter, present on admission. Active. - Chronic indwelling Ovalle catheter changed this admission - Urine culture growing ESBL Escherichia coli, started on ertapenem - per ID recs no further Abx on d/c 4. Possible NSTEMI, present on admission. Active. - He received 48 hours of heparin, discontinued - Not likely , Troponin remained stable and he denies any chest pain. Echocardiogram with no dyskinesia - Patient refuses further workup for CAD - Continue aspirin 81 mg daily, and atorvastatin 10 mg daily at bedtime. 5. Positive blood culture. - Blood culture x1 positive for coagulase negative staph. Presumed contaminant. Chronic Problems: Chronic atrial trial fibrillation, without RVR. - Continue home metoprolol 12.5 mg twice a day for rate control. Hypertension, chronic. - Continue triamterene/HCTZ 75-25 mg daily. Gout, chronic. - Continue allopurinol 100 mg daily. Chronic decubitus and lower extremity ulcers. - Likely secondary to immobility and decreased functional status due to right sided hemiparesis. - Continue home nystatin powder as needed. - Wound care consulted by day of d/c lungs CTA bilat. patient and his insisting that pt be discharged home today. Exam Vital Signs (Last) Date Time Temp Pulse Resp B/P Pulse Ox O2 Delivery O2 Flow Rate FiO2 10/20/16 09:31 36.8 58 16 143/76 96 Room Air Test 10/14/16 04:45 10/14/16 05:25 10/14/16 17:40 10/15/16 04:00 Hold Purple Top Tube Received (Received) Hold Blue Top Tube Received (Received) Pro-B-Type Natriuretic Peptide 2588pg/mL (0-486) Hold [place] Top Tube Received (Received) Hold [place] Top Tube Received (Received) Urine Color Yellow (YELLOW) Urine Appearance Slightly cloudy Urine pH 6.0 (5.0-8.0) Urine Specific [place] 1.025 (1.003-1.035) Urine Protein 100mg/dL (NEG,TRACE) Urine Glucose (UA) Negativemg/dL (NEGATIVE) Urine Ketones Negativemg/dL (NEGATIVE) Urine Occult Blood Large (NEGATIVE) Urine Nitrite Positive (NEGATIVE) Urine Bilirubin Negative (NEGATIVE) Urine Urobilinogen Normalmg/dL (NORMAL) Urine Leukocyte Esterase Small (NEGATIVE) Urine RBC Packed/hpf (0-2) Urine WBC >50/hpf (0-5) Urine Epithelial Cells Occasional/hpf (NONE-MOD) Urine Crystals None seen (NONE SEEN) Urine Bacteria Many/hpf (NONE-FEW) Urine Hyaline Casts None/lpf (NONE) Urine Granular Casts None seen (NONE SEEN) Urine Waxy Casts None seen (NONE SEEN) Urine Red Blood Cell Casts None seen (NONE SEEN) Urine White Blood Cell Casts None seen (NONE SEEN) Urine Mucus None seen (None Seen) Urine Trichomonas None seen (NONE SEEN) Urine Yeast None (NONE SEEN) Urine Culture Reflexed Indicated Urine Legionella pneumophilia Ag Negative (Negative) Total Bilirubin 1.3mg/dL (0.0-1.2) Aspartate Amino Transf (AST/SGOT) 20U/L (0-50) Alanine Aminotransferase (ALT/SGPT) 8U/L (0-44) Alkaline Phosphatase 42U/L (25-160) Total Creatine Kinase 122U/L (21-232) Creatine Kinase MB 1.7ng/mL (0.0-10.4) Creatine Kinase MB % % (0.0-5.0) Total Protein 5.3g/dL (6.4-8.4) Albumin 2.9g/dL (3.4-5.0) Test 10/15/16 18:25 10/15/16 20:02 10/16/16 05:30 10/16/16 13:15 Troponin T 0.051ug/L (0.0-0.011) Lactic Acid Level 1.4mmol/L (0.4-2.0) Procalcitonin 0.14ng/mL (See Comment) Activated Partial Thromboplast Time 51.1sec (22.8-33.0) Test 10/18/16 06:03 10/19/16 06:26 10/20/16 05:30 White Blood Count 6.9th/mm3 (3.8-10.1) Red Blood Count 4.87mil/mm3 (4.40-5.80) Mean Corpuscular Volume 92.0fL (81-100) Mean Corpuscular Hemoglobin 31.4pg (27.0-35.0) Mean Corpuscular Hemoglobin Concent 34.2% (32.0-37.0) Red Cell Distribution Width 13.9% (12.3-15.4) Platelet Count 160bil/L (150-400) Neutrophils (%) (Auto) 73.8% (40-74) Lymphocytes (%) (Auto) 9.3% (14-46) Monocytes (%) (Auto) 12.8% (4-12) Eosinophils (%) (Auto) 3.1% (0-5) Basophils (%) (Auto) 0.7% (0-3) Magnesium Level 1.8mg/dL (1.6-2.6) Hemoglobin 14.6g/dL (13.8-17.2) Hematocrit 44.0% (41.0-50.0) Sodium Level 137mEq/L (134-144) Potassium Level 4.8mEq/L (3.5-5.2) Chloride Level 101mEq/L (97-108) Carbon Dioxide Level 24mmol/L (18-29) Blood Urea Nitrogen 20mg/dL (8-27) Creatinine 0.99mg/dL (0.76-1.27) Estimat Glomerular Filtration Rate 77mL/min (>59) Glucose Level 96mg/dL (60-99) Calcium Level 9.5mg/dL (8.5-10.1) Prothrombin Time 23.3sec (8.1-12.5) Prothromb Time International Ratio 2.14ratio Microbiology Results Urine culture preliminarily growing gram-negative rods likely Escherichia coli with identification and sensitivities to follow. Blood culture x 1 preliminarily growing gram-positive cocci resembling staph aureus with identification and sensitivities to follow. Streptococcus and Legionella urine antigen negative. . Discharge Medications Discharge Medications Allopurinol (Allopurinol) 100 Mg Tablet 100 MG PO DAILY (Reported) Aspirin (Aspirin) 81 Mg Tablet 81 MG PO DAILY (Reported) Cholecalciferol (Vitamin D3) (Vitamin D3) 1,000 Unit Tab.chew 1,000 UNIT PO Noon (Reported) Cyanocobalamin (Vitamin B-12) (Vitamin B-12) 1,000 Mcg Tablet 1,000 MCG PO HS ( Reported) Metoprolol Tartrate (Metoprolol Tartrate) 25 Mg Tablet 12.5 MG PO BID Prescribed by: WILLAM OCHOA MD Simvastatin (Simvastatin) 40 Mg Tablet 20 MG PO HS (Reported) Triamterene/HCTZ 75-50 mg (Triamterene/HCTZ 75-50 mg) 1 Each Tablet 1 EACH PO DAILY (Reported) Warfarin Sodium (Warfarin Sodium) 2.5 Mg Tablet 2.5 MG PO , thu. (Reported) Warfarin Sodium (Warfarin Sodium) 5 Mg Tablet 5 MG PO M,W, Th, Sa, Parra (Reported ) As needed Docusate Sodium (Colace) 100 Mg Capsule 100 MG PO BID PRN PRN For Constipation ( Reported) Nitroglycerin SL (Nitrostat) 0.4 Mg Tab.subl 0.4 MG SL Q5MIN PRN PRN For Chest Pain Prescribed by: WILLAM OCHOA MD Nystatin (Nystatin) 15 Gm Powder 1 APPLIC EXTERNAL BID PRN PRN rash (Reported) Sennosides (Senna) 8.6 Mg Tablet 8.6 MG PO PRN For Constipation (Reported) oxyCODONE-Acetaminophen 5-325 mg (oxyCODONE-Acetaminophen 5-325 mg) 1 Each Tablet 1 TAB PO BID PRN PRN For Pain (Reported) oxyCODONE-Acetaminophen 5-325 mg (oxyCODONE-Acetaminophen 5-325 mg) 1 Each Tablet 0.5 TAB PO noon PRN PRN For Pain (Reported) Followup Plan Disposition: Home with Follow-up plan 1. Followup with primary care provider in 5-10 days Discharge Diet: Low fat, Low Sodium, Heart Healthy Discharge Activity: Home Health Phyical Therapy, Other (as tolerated.) Patient Instructions Seek immediate medical attention if any new or worsening signs or symptoms occur. Follow-up Provider: Joselo Schmitt MD Time spent 35 min copies to: Joselo Schmitt MD, Masoud Oct 20, 2016 17:40
== END 2016-10-20 13:50 | disposition home health service (06) | DRG 194 ==
LOC: SED 04:39 → EDBD 04:39 → OBSVTOIN 07:22 → UNDOADMOB 07:22 → OFED 07:22 → INTOOBSV 07:22 → OSC 10-15 08:15
PROVIDERS: ADMIT Hospitalist; ATTEND Hospitalist
DX: J12.89 Other viral pneumonia (principal); I69.351 Hemiplegia and hemiparesis following cerebral infarction affecting right dominant side; T83.511A Infection and inflammatory reaction due to indwelling urethral catheter, initial encounter; I48.2 Chronic atrial fibrillation; I10 Essential (primary) hypertension; N31.9 Neuromuscular dysfunction of bladder, unspecified; B96.29 Other Escherichia coli [E. coli] as the cause of diseases classified elsewhere; M10.9 Gout, unspecified; I25.10 Atherosclerotic heart disease of native coronary artery without angina pectoris; Z86.718 Personal history of other venous thrombosis and embolism; Z79.01 Long term (current) use of anticoagulants; F41.9 Anxiety disorder, unspecified; I25.2 Old myocardial infarction; Z16.12 Extended spectrum beta lactamase (ESBL) resistance; Z74.01 Bed confinement status

== ENCOUNTER 2017-04-22 01:17 | Inpatient (IN) | payer MEDICARE, OTHER ==
[2017-04-22] VITALS (21 sets, daily range): BP systolic 136–190; BP diastolic 52–92; PULSE 54–83; RESP 15–26; O2SAT 95–100
[~2017-04-22] VITALS: Ht 193 cm; Wt 118.7 kg
[~2017-04-22 01:17] MED LIST changes: -FAMO20T PO; +SENN-133 PO; -SENN8.6C6 PO; -WARF2.5T PO; +WARF2.5T82 PO; -WARF5TAB PO; +WARF5TAB7 PO
--- NOTE | 2017-04-22 01:25 | ED.REPORT ---
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 The pt had to strain during a BM yesterday and has been experiencing this pain since. He reports chronic shortness of breath. The pt denies chest pain and any other symptoms at this time. Nursing Notes Stated Complaint: ABDOMINAL PAIN Chief Complaint: Male Abdominal Pain Nursing Notes Reviewed: Yes Allergies: Coded Allergies: rofecoxib (Verified Allergy, Severe, 10/14/16) ciprofloxacin (Verified Allergy, Unknown, rash, 10/14/16) Scheduled Allopurinol (Allopurinol) 100 Mg Tablet 100 MG PO DAILY Aspirin (Aspirin) 81 Mg Tablet 81 MG PO DAILY Cholecalciferol (Vitamin D3) (Vitamin D3) 1,000 Unit Tab.chew 1,000 UNIT PO Noon Cyanocobalamin (Vitamin B-12) (Vitamin B-12) 1,000 Mcg Tablet 1,000 MCG PO HS Metoprolol Tartrate (Metoprolol Tartrate) 25 Mg Tablet 12.5 MG PO BID Simvastatin (Simvastatin) 40 Mg Tablet 20 MG PO HS Triamterene/HCTZ 75-50 mg (Triamterene/HCTZ 75-50 mg) 1 Each Tablet 1 EACH PO DAILY Warfarin Sodium (Warfarin Sodium) 2.5 Mg Tablet 2.5 MG PO tues, fri. Warfarin Sodium (Warfarin Sodium) 5 Mg Tablet 5 MG PO ,W, , Sa, Parra Scheduled PRN Docusate Sodium (Colace) 100 Mg Capsule 100 MG PO BID PRN PRN For Constipation Nitroglycerin SL (Nitrostat) 0.4 Mg Tab.subl 0.4 MG SL Q5MIN PRN PRN For Chest Pain Nystatin (Nystatin) 15 Gm Powder 1 APPLIC EXTERNAL BID PRN PRN rash Sennosides (Senna) 8.6 Mg Tablet 8.6 MG PO PRN For Constipation oxyCODONE-Acetaminophen 5-325 mg (oxyCODONE-Acetaminophen 5-325 mg) 1 Each Tablet 1 TAB PO BID PRN PRN For Pain oxyCODONE-Acetaminophen 5-325 mg (oxyCODONE-Acetaminophen 5-325 mg) 1 Each Tablet 0.5 TAB PO noon PRN PRN For Pain General Time Seen by MD: 01:23 Chief Complaint Abdominal pain Hx Obtained From: Patient Arrived By: Ambulance Sudden in Onset?: Yes Onset Occurred: Yesterday Context of Onset: Other (after hard BM) Symptom Duration: Since onset Progression since Onset: Constant Location: : Diffuse Quality: Painful Radiation: : Does not radiate Severity: Current: Moderate Severity: Maximum: Moderate Recent Healthcare: No recent doctor visit Similar Sx Previous: No Past Medical History Past Medical History Bedridden since stroke in 2010 1. Coronary artery disease. He had a cath back in early 1999 that showed mild multivessel disease with an EF of 60%. 2. History of B-cell lymphoma 3. He has had bilateral kidney cysts which have been removed. 4. osteoarthritis 5. 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 6. Colon polyps. 7. Atrial fibrillation. 8. Hypertension. 9. 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 Physical Exam Initial Vital Signs Vital Signs (First) Date Time Temp Pulse Resp B/P Pulse Ox O2 Delivery O2 Flow Rate FiO2 04/22/17 01:23 36.8 54 18 154/65 97 Room Air Initial VS: Reviewed Head / Eyes: Atraumatic, Normocephalic Neck: Supple, Non-tender, Full range of motion Extremities: Vascular intact, Neuro intact, No tenderness Skin: Warm, Dry, No cyanosis Neurologic: Alert, Oriented, Nonfocal General/Constitutional: Awake, Alert Appearance / Presentation: Positive: Uncomfortable Immobile Respiratory / Chest: Atraumatic, Breath sounds NL, Breath sounds = bilat, No respiratory distress, No rales, No rhonchi, No wheezing Cardiovascular: Heart rate NL, Regular rhythm, Heart sounds NL, No gallop, No murmurs, No rubs Upper Ext Edema: Positive: Bilateral 3+ Abdomen: Atraumatic, Soft, No hernia Bowel Sounds / Distention: Positive: Distention mild Midline scar without herniation in mid-abdomen Back: Atraumatic, Full range of motion Interpretation & Diagnostics Lab Results Interpretation Result Diagram: 04/22/17 0220 04/22/17 0220 Test 04/22/17 02:20 04/22/17 03:40 White Blood Count 12.3th/mm3 (3.8-10.1) Red Blood Count 5.03mil/mm3 (4.40-5.80) Hemoglobin 15.7g/dL (13.8-17.2) Hematocrit 46.5% (41.0-50.0) Mean Corpuscular Volume 92.4fL (81-100) Mean Corpuscular Hemoglobin 31.2pg (27.0-35.0) Mean Corpuscular Hemoglobin Concent 33.8% (32.0-37.0) Red Cell Distribution Width 14.6% (12.3-15.4) Platelet Count 141bil/L (150-400) Neutrophils (%) (Auto) 87.7% (40-74) Lymphocytes (%) (Auto) 5.2% (14-46) Monocytes (%) (Auto) 5.5% (4-12) Eosinophils (%) (Auto) 0.8% (0-5) Basophils (%) (Auto) 0.4% (0-3) Prothrombin Time 45.3sec (8.1-12.5) Prothromb Time International Ratio 4.11ratio Sodium Level 136mEq/L (134-144) Potassium Level 3.9mEq/L (3.5-5.2) Chloride Level 99mEq/L (97-108) Carbon Dioxide Level 23mmol/L (18-29) Blood Urea Nitrogen 21mg/dL (8-27) Creatinine 0.83mg/dL (0.76-1.27) Estimat Glomerular Filtration Rate 94mL/min (>59) Glucose Level 122mg/dL (60-99) Lactic Acid Level 1.3mmol/L (0.4-2.0) Calcium Level 10.1mg/dL (8.5-10.1) Magnesium Level 1.7mg/dL (1.6-2.6) Total Bilirubin 0.9mg/dL (0.0-1.2) Aspartate Amino Transf (AST/SGOT) 13U/L (0-50) Alanine Aminotransferase (ALT/SGPT) 7U/L (0-44) Alkaline Phosphatase 56U/L (25-160) Total Protein 7.0g/dL (6.4-8.4) Albumin 3.4g/dL (3.4-5.0) Lipase 10U/L (13-60) Urine Color Yellow (YELLOW) Urine Appearance Cloudy (CLEAR,HAZY) Urine pH 5.0 (5.0-8.0) Urine Specific [place] 1.030 (1.003-1.035) Urine Protein >300mg/dL (NEG,TRACE) Urine Glucose (UA) Negativemg/dL (NEGATIVE) Urine Ketones Tracemg/dL (NEGATIVE) Urine Occult Blood Small (NEGATIVE) Urine Nitrite Positive (NEGATIVE) Urine Bilirubin Negative (NEGATIVE) Urine Urobilinogen Normalmg/dL (NORMAL) Urine Leukocyte Esterase Trace (NEGATIVE) Urine RBC 0-2/hpf (0-2) Urine WBC >50/hpf (0-5) Urine Epithelial Cells Occasional/hpf (NONE-MOD) Urine Crystals None seen (NONE SEEN) Urine Bacteria Many/hpf (NONE-FEW) Urine Hyaline Casts Occasional/lpf (NONE) Urine Granular Casts None seen (NONE SEEN) Urine Waxy Casts None seen (NONE SEEN) Urine Red Blood Cell Casts None seen (NONE SEEN) Urine White Blood Cell Casts None seen (NONE SEEN) Urine Mucus None seen (None Seen) Urine Trichomonas None seen (NONE SEEN) Urine Yeast None (NONE SEEN) Urinalysis Comment None Urine Culture Reflexed Indicated ECG Interpretation ECG Interpretation: A-fib. Rate 72. Time: 01:51 Interpreted by: ED physician CT Abd / Pelvis Interpretation Impression: Air fluid level in the cecum which is severely dilated and displaced into the midline. There is no small bowel obstruction. 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 Signed by Dr. Liang Villalobos 04/22/17 03:38 Study type: Abdominal CT IV contrast Interpretation / Wet Read by: Interpret - Radiologist Re-Eval/Medical Decision Med Decision/Clinical Course 82-year-old awake and alert but bedridden due to stroke, but living at home with his spouse. 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 He is chronically in A. fib and on warfarin anticoagulation, and is anticoagulated at an INR 4.1. He will require reversal prior to probable surgery. His numerous medical issues will need to be addressed and optimized and he is admitted now to the medicine service. We will discuss this morning with surgery. Time of Eval: 03:53 Re-Evaluation/Progress Note: Rechecked pt. Discussed lab results, imaging results, diagnosis and plan to admit. Pt understands and agrees with the plan for admission. All questions addressed. Consultation : Referral / Consult Name: Jm White MD Consulted With: Hospitalist Call Returned at: 03:51 County Director: Will see patient, Agrees with eval, Agrees with plan, Accepts admit Discharge & Departure Primary Impression: Cecal volvulus Additional Impressions: Urinary tract infection Chronic indwelling Ovalle catheter Disposition: Home Vital Signs - All Vital Signs Date Time Temp Pulse Resp B/P Pulse Ox O2 Delivery O2 Flow Rate FiO2 04/22/17 01:23 36.8 54 18 154/65 97 Room Air )( All Prior VS Reviewed: Yes Condition: Stable Referrals: Joselo Schmitt MD (PCP) Scribe Attestation Portions of this note were transcribed by Chyna Page. I, Dr. Hsieh, personally performed the history, physical exam and medical decision-making;I reviewed and confirmed the accuracy of the information in the transcribed note. Signed by Aamir Guido. 04/22/17 04:14 Daniel Hsieh MD Apr 22, 2017 01:25 Chyna Page Apr 22, 2017 03:26
[2017-04-22] MEDS ORDERED: HYDROmorphone 0.5 mg/0.5 mL iSecure Syringe IVPUSH PRN (01:30)
[2017-04-22] MEDS ORDERED: Ondansetron 2 mg/mL 2 mL Inj IVPUSH ONE (01:30)
[2017-04-22 02:31] LABS: BASOPHILS % (AUTO) 0.4 % (0-3); EOSINOPHILS % (AUTO) 0.8 % (0-5); MONOCYTES % (AUTO) 5.5 % (4-12); Mean Corpuscular Hemoglobin 31.2 pg (27.0-35.0); Mean Corpuscular Volume 92.4 fL (81-100); NEUTROPHILS % (AUTO) 87.7 % (40-74); Platelet Count 141 bil/L (150-400)
[2017-04-22 02:53] LABS: INR 4.11 ratio; Magnesium 1.7 mg/dL (1.6-2.6)
[2017-04-22] MEDS ORDERED: Polyethylene Glycol (PEG) 17 Gm Powder PO PRN (03:55)
[2017-04-22] MEDS ORDERED: Phytonadione (Adult) 10 MG in Dextrose 5%-Pha MIX 50 ML IV ONE (03:55)
[2017-04-22] MEDS ORDERED: Ondansetron 2 mg/mL 2 mL Inj IVPUSH PRN ×3 (03:55→19:50)
[2017-04-22] MEDS ORDERED: Alum-Mag Hydrox-Simeth 30 mL Suspension PO PRN (03:55)
[2017-04-22 04:00] LABS: APPEARANCE,URINE CLOUDY (CLEAR,HAZY); COLOR,URINE YELLOW (YELLOW)
[2017-04-22 04:01] LABS: OCCULT BLOOD,URINE SMALL (NEGATIVE); UROBILINOGEN,URINE NORMAL (NORMAL)
--- NOTE | 2017-04-22 04:05 | PCM.HPMED ---
Subjective Date of Service Apr 22, 2017 Primary Provider: Admitting Physician: Primary Care Physician: Joselo Schmitt MD Attending Physician: Chief Complaint: abdominal pain History of Present Illness: 82 year old male with h/o CAD, A-fib, HTN, CVA (bedridden due to CVA) and bilateral DVTs on Coumadin presented to the ED via EMS complaining of abdominal pain, onset yesterday. Pain is diffuse, no specific aggravating or releiving factors. He had to strain during a bowel movement yesterday and has been experiencing this pain since. He reports chronic shortness of breath. The pt denies chest pain and any other symptoms at this time. In ER he was in mild distress due to pain. Labs were remarkable for mild leukocytosis. He underwent CT scan that was consistent with cecal volvulus. No surgical intervention at this time as he is hypercoagulated. Allergies Coded Allergies: rofecoxib (Verified Allergy, Severe, 10/14/16) ciprofloxacin (Verified Allergy, Unknown, rash, 10/14/16) PMH Social History Hx Alcohol Use: No Hx Substance Use: No Hx Tobacco Use: No Smoking Status: Never Smoker Exam Vital Signs Vital Sign - Last Date Time Temp Pulse Resp B/P Pulse Ox O2 Delivery O2 Flow Rate FiO2 04/22/17 01:23 36.8 54 18 154/65 97 Room Air Exam General/Constitutional: Awake, Alert Appearance: Uncomfortable Head / Eyes: Atraumatic, Normocephalic Neck: Supple, Non-tender, Full range of motion Respiratory / Chest: Atraumatic, Breath sounds NL, Breath sounds = bilat, No respiratory distress, No rales, No rhonchi, No wheezing Cardiovascular: Heart rate NL, Regular rhythm, Heart sounds NL, No gallop, No murmurs, No rubs Abdomen: Atraumatic, Soft, No hernia, distended, diffuse tenderness, No rebound tenderness or rigidity. istention mild Neurologic: Alert, Oriented, Nonfocal Extremities: Vascular intact, Neuro intact, No tenderness Upper Ext Edema: Positive: Bilateral 3+ Lab and Diagnostics Result Diagram: 04/22/1721904/22/17219 X-Rays, CTs and MRIs CT Abdomen: Impression: Air fluid level in the cecum which is severely dilated and displaced into the midline. There is no small bowel obstruction. 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 Assessment & Plan Abdominal pain - CT consistent with cecal volvulus - Will keep NPO - He is currently hypercoagulated. - Surgery consulted Chronic DVT - INT: 4.1 - Will hold coumadin DVT: INR 4.1 GI ppx: Pantoprazole To be admitted as inpatient due to complexity of medical condition that will require more than two days of hospital stay. Jm White MD Apr 22, 2017 04:00
[2017-04-22] MEDS: 0.9% Sodium Chloride 1,000 ML IV SCH ×4 (07:15→23:55)
[2017-04-22] MEDS ORDERED: Rocuronium 10 mg/mL 5 mL Inj ONE (08:00)
[2017-04-22] MEDS ORDERED: fentaNYL-PF 50 mCg/mL 2 mL Inj ONE (08:00)
[2017-04-22] MEDS ORDERED: Neostigmine 1 mg/mL 10 mL Inj ONE (08:00)
[2017-04-22] MEDS ORDERED: Ondansetron 2 mg/mL 2 mL Inj ONE (08:00)
[2017-04-22] MEDS ORDERED: Phenylephrine/NS 100 mCg/mL 10 mL Syringe IVPUSH ONE (08:00)
[2017-04-22] MEDS ORDERED: HYDROmorphone 1 mg/mL Inj ONE (08:00)
[2017-04-22] MEDS ORDERED: Glycopyrrolate 0.2 MG/ML 1mL Inj ONE (08:00)
[2017-04-22] MEDS ORDERED: Propofol 10,000 mCg/mL 20 mL Inj ONE (08:00)
--- NOTE | 2017-04-22 08:31 | PCM.HPSURG ---
Subjective Date of Service: Apr 22, 2017 Referring Provider: Admitting Physician: Jm White MD Primary Care Physician: Joselo Schmitt MD Attending Physician: Елена Fu DO Chief Complaint Acute lower abdominal pain History of Present Illness 82 year old male with h/o CAD, A-fib, elevated troponins, CVA (bedridden since CVA) and bilateral DVTs on Coumadin presented to the ED via EMS complaining of abdominal pain, onset yesterday afternoon prior to dinner (3 o'clock). Pain the pain was diffuse on presentation but now is localized to lower quadrants and is markedly decreased per patient. Upon straining for a bowel movement yesterday he had sudden onset abdominal pain which was unrelenting. He has never experienced this before and typically has bowel movements daily without hematochezia or melena. He reports chronic shortness of breath. The pt denies chest pain and any other symptoms at this time. He is currently resting comfortable. Labs in the ER were remarkable for mild leukocytosis and elevated INR of 4.11. His CT scan that was consistent with cecal volvulus. Allergy Allergies: Coded Allergies: ciprofloxacin (Verified Allergy, Unknown, rash, 04/23/17) rofecoxib (Verified Adverse Reaction, Mild, It just didn't work, 04/23/17) Past Surgical History Operations: Laparoscopic right sided partial nephrectomy Social History Hx Alcohol Use: Yes (Gonzalo Sellers) Hx Substance Use: No Hx Tobacco Use: Yes (quit 10 years ago) PMH HEENT History History of ENT Problems?: Yes HEENT History: Positive for:: Cataracts (cataract surgery) Dysphagia (WHEN HAD CVA) Denies:: Glaucoma Sinus Problem Cardiovascular History History of Heart Problems?: Yes Cardiovascular History: Positive for:: Atrial Fibrillation Coronary Artery Disease (known multivessel disease) Edema Hypertension Irregular Heartbeat (afib) Denies:: Congestive Heart Failure Heart Murmur Pacemaker Other Cardiac History: Demand ischemia versus N STEMI 10/14/16 Echocardiogram 10/15/16 Interpretation Summary The left ventricle is normal in size, wall thickness, and systolic function without any focal wall motion abnormalities. The ejection fraction is estimated to be 60-65%. The right ventricle is not well visualized. The right ventricle grossly appears normal in size with probable normal systolic function. Right ventricular systolic pressure is estimated to be 21 mmHg plus the clinically estimated CVP which cannot be estimated on this exam. The left atrial size is normal. Right atrium not well visualized. There is mild aortic stenosis. The calculated aortic valve area is 1.8 cm2. There is no other significant valvular heart disease. N STEMI 02/13/16 Cardiac catheterization 01/23/2006 demonstrated 60% stenosis of proximal left anterior descending artery 50% stenosis of circumflex and an occluded right coronary artery Respiratory History of Respiratory Problem: Yes (chronically short of breath) Respiratory History: Denies:: Asthma COPD Emphysema Neurological History Hx Neurologic Problems?: Yes Neurological History: Positive for:: CVA (Residual right side weakness) Denies:: Dementia Headaches Parkinson's Disease Seizures Gastrointestinal History HX of GI Problems?: Yes Gastrointestinal History: Positive for:: Heartburn (OTC Tums) Denies:: Diverticulitis Gastrointestinal Bleeding Hiatal Hernia Rectal Bleeding Genitourinary History Hx of Gu Problems?: No Genitourinary History: Denies: Kidney Stones Female/Male History Reproductive History Male: Denies: Prostate Problems Scrotal Mass Other History/Comments: Chronic indwelling Ovalle catheter Musculoskeletal History Hx Musculoskeletal Problems?: Yes Musculoskeletal History: Positive for:: Degenerative Joint Denies:: Back Injury Joint Replacement Musculoskeletal Trauma Psycho Social History Hx of Psycho/Social Problems?: Yes Psycho Social History: Positive for:: Anxiety Denies:: Hx Depression Other History Hx Any Other Health Problems?: Yes Other History: Positive for:: 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) Hospitalization Diabetes: No Social History Hx Alcohol Use: Yes (occasional use)Hx Substance Use: NoHx Tobacco Use: No Smoking Status: Former Smoker Never Smoker Living Arrangement: with Family (visit with who is primary kennel manager) Review of Systems Constitutional: Reports: Weakness (chronically weak secondary to CVA right- sided more than left), Denies: Chills, Fever Cardiovascular: Reports: Edema (chronic since CVA), Denies: Chest Pain Respiratory: Reports: Shortness of Breath Gastrointestinal: Reports: Abdominal Pain, Denies: Constipation, Hematochezia, Melena, Nausea, Vomiting Genitourinary: Reports: Retention (indwelling catheter) Skin: Reports: Bruising Neurological: Reports: Incoordination, Weakness, Denies: Confusion Psychologic: Denies: Disorientation H&P Surgical Exam Exam General: Alert, Oriented X3, Cooperative, No Acute Distress Lungs: Clear to Auscultation, Normal Air Movement (decreased respiratory effort ) Heart: Normal S1, Normal S2, No Murmurs/Rubs/Gallops, Other (irregularly irregular rhythm) Abdomen: Soft, Non-tender, Non-distended, Tympanic (mildly ) Neuro: Normal Speech, Other (residual deficits following CVA right-sided weakness more so in the lower extremity, tongue deviation to the right ) Catheters: Urethral 2 Way Ovalle Lab & Micro Results: Laboratory Tests Test 04/22/17 02:20 04/22/17 03:40 White Blood Count 12.3th/mm3 (3.8-10.1) Red Blood Count 5.03mil/mm3 (4.40-5.80) Hemoglobin 15.7g/dL (13.8-17.2) Hematocrit 46.5% (41.0-50.0) Mean Corpuscular Volume 92.4fL (81-100) Mean Corpuscular Hemoglobin 31.2pg (27.0-35.0) Mean Corpuscular Hemoglobin Concent 33.8% (32.0-37.0) Red Cell Distribution Width 14.6% (12.3-15.4) Platelet Count 141bil/L (150-400) Neutrophils (%) (Auto) 87.7% (40-74) Lymphocytes (%) (Auto) 5.2% (14-46) Monocytes (%) (Auto) 5.5% (4-12) Eosinophils (%) (Auto) 0.8% (0-5) Basophils (%) (Auto) 0.4% (0-3) Prothrombin Time 45.3sec (8.1-12.5) Prothromb Time International Ratio 4.11ratio Sodium Level 136mEq/L (134-144) Potassium Level 3.9mEq/L (3.5-5.2) Chloride Level 99mEq/L (97-108) Carbon Dioxide Level 23mmol/L (18-29) Blood Urea Nitrogen 21mg/dL (8-27) Creatinine 0.83mg/dL (0.76-1.27) Estimat Glomerular Filtration Rate 94mL/min (>59) Glucose Level 122mg/dL (60-99) Lactic Acid Level 1.3mmol/L (0.4-2.0) Calcium Level 10.1mg/dL (8.5-10.1) Magnesium Level 1.7mg/dL (1.6-2.6) Total Bilirubin 0.9mg/dL (0.0-1.2) Aspartate Amino Transf (AST/SGOT) 13U/L (0-50) Alanine Aminotransferase (ALT/SGPT) 7U/L (0-44) Alkaline Phosphatase 56U/L (25-160) Total Protein 7.0g/dL (6.4-8.4) Albumin 3.4g/dL (3.4-5.0) Lipase 10U/L (13-60) Urine Color Yellow (YELLOW) Urine Appearance Cloudy (CLEAR,HAZY) Urine pH 5.0 (5.0-8.0) Urine Specific [place] 1.030 (1.003-1.035) Urine Protein >300mg/dL (NEG,TRACE) Urine Glucose (UA) Negativemg/dL (NEGATIVE) Urine Ketones Tracemg/dL (NEGATIVE) Urine Occult Blood Small (NEGATIVE) Urine Nitrite Positive (NEGATIVE) Urine Bilirubin Negative (NEGATIVE) Urine Urobilinogen Normalmg/dL (NORMAL) Urine Leukocyte Esterase Trace (NEGATIVE) Urine RBC 0-2/hpf (0-2) Urine WBC >50/hpf (0-5) Urine Epithelial Cells Occasional/hpf (NONE-MOD) Urine Crystals None seen (NONE SEEN) Urine Bacteria Many/hpf (NONE-FEW) Urine Hyaline Casts Occasional/lpf (NONE) Urine Granular Casts None seen (NONE SEEN) Urine Waxy Casts None seen (NONE SEEN) Urine Red Blood Cell Casts None seen (NONE SEEN) Urine White Blood Cell Casts None seen (NONE SEEN) Urine Mucus None seen (None Seen) Urine Trichomonas None seen (NONE SEEN) Urine Yeast None (NONE SEEN) Urinalysis Comment None Urine Culture Reflexed Indicated Diagnostics: CT abdomen pelvis Air fluid level in the cecum which is severely dilated and displaced into the midline. There is no small bowel obstruction. 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 Signed by Dr. Liang Villalobos 04/22/17 03:38 Assessment & Plan Assessment Cecal volvulus Problems: (1) Cecal volvulus Status: Acute ICD Code: K56.2 (2) Elevated INR (international normalized ratio) due to prior anticoagulant medication ingestion Status: Acute ICD Code: R78.89 Pain Evaluation: Adequate Pain Control (not requiring pain medication this time ) VTE [facility] Dev Contraindication: Edema of lower extremity Plan: Cecal Volvulus, acute, unresolved. -CT abdomen shows what appears to be a cecal volvulus and differential includes but is not limited obstruction secondary to adhesions, and neoplasm -Surgical intervention is necessary with derotation and a right hemicolectomy. -Surgery was discussed with the patient risks and benefits of conservative management versus surgical intervention. The patient has agreed to surgical intervention -Patient's pain is well managed currently Elevated INR, acute, improving. - Patient presented with an INR of 4.1 one to the ER. Repeat INR this morning is 2.37. - Fresh frozen plasma was ordered by the hospitalist Resuscitation Status: CPR: Attempt Resuscitation Attending Statement: I examined this patient and I agree with the note as stated above by Dr. Ng. Please see my separately dictated consultation note as well. MD Hernandez Chino Brook L DO Apr 22, 2017 08:31 Melanie Ogden MD Apr 24, 2017 12:06
[2017-04-22 09:14] LABS: INR 2.37 ratio
[2017-04-22] MEDS: 0.9% Sodium Chloride 250 ML IV SCH ×2 (09:31→10:46)
--- NOTE | 2017-04-22 10:06 | DRSVH ---
PROCEDURE: CT ABDOMEN AND PELVIS WITH CONTRAST ([id number]) INDICATIONS: mid abd pain 4 hours TECHNIQUE: After the administration of intravenous contrast, 5 mm thick sections acquired from the diaphragm to the symphysis. 5 mm coronal and sagittal reformats were acquired. For radiation dose reduction, the following was used: automated exposure control, adjustment of mA and/or kV according to patient siz e. COMPARISON: [facility], CT, ABD/PELVIS W&WO CON (PNL), 01/04/2010, 9:33. [facility], CT, ABD/PELVIS W&WO CON (PNL), 01/13/2011, 9:08. [facility], CT, ABD /PELVIS W&WO CON (PNL), 12/10/2007, 8:34. FINDINGS: Image quality: Excellent. ABDOMEN: Lung bases: There are trace bilateral pleural effusions, right greater than left. Solid organs: Liver and spleen are normal in size and enhancement. Posterior right hepatic cyst is present, unchanged. There is a poorly visualized. Enhancement within the posterior right hepatic lobe on series 3 image 31 measuring 12 mm. This is also been present on multiple prior exams, with varyin g degrees of disability secondary to injection timing. It likely represents hemangioma. Gallbladder is unremarkable. Biliary system is non dilated. Pancreas enhances normally. No adrenal nodules. Kidneys are atrophic bilaterally. An exophytic renal cyst on the right is present which has demonstra robert mild enlargement over multiple prior exams. However, overall appearance appears most suggestive o f simple cyst. History notes a partial right nephrectomy. Nonobstructing right renal calcification is present, unchanged. There are multiple cystic foci within the kidneys bilaterally. It is noted that the concerning lower pole focus of heterogeneous attenuation which has been followed since 2007 has n ot appreciably changed. There is a new heterogeneous focus of enhancement along the posterior exophyt ic mid renal pole on the right on series 2 image 40 measuring 10 mm. It is new compared to prior exam .. Peritoneum and bowel: There is significant gas and fluid level dilation of what appears to be the col on located in a transverse location within the anterior mid abdomen. Transition point is felt to best be identified near the midline on series 2 image 49. There is no visible free air. Distal colon demo nstrates limited gaseous distention but does not appear collapsed. Mild dependent pelvic fluid is pre sent. Scattered Paragr particular are present without inflammatory change. Nodes and vessels: No retroperitoneal or mesenteric adenopathy by size criteria. Aorta and inferior vena cava are normal in size. There is calcification at the origin of the superior mesenteric arter y of approximately 50%, unchanged. Miscellaneous: There is a focus of small bowel containing ventral hernia, unchanged at the level of the umbilicus. PELVIS: Genitourinary: Bladder wall thickness is normal. Miscellaneous: No inguinal hernias or adenopathy. Bones: No suspicious bony lesions. No vertebral body compression fractures. IMPRESSION: 1. Air-fluid level in a markedly dilated and displaced cecum as described above. 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 No free air. Mild dependent fluid. 2. Multiple renal cysts, unchanged, including the concerning focus in the left lower pole. It is no robert that a new heterogenous exophytic focus in the mid pole of the right kidney, inconsistent with si mple cyst. This could represent a complex cyst or potentially small renal cell carcinoma. Further e valuation with CT/MR with renal protocol. Dictated by: Kary Montalvo M.D. on 04/22/2017 at 9:24 Approved by: Kary Montalvo M.D. on 04/22/2017 at 10:04
--- NOTE | 2017-04-22 11:51 | PCM.PNMED ---
Subjective Date of Service Apr 22, 2017 Subjective Patient is seen and examined. He is alert and oriented. He says that after the stroke he has been bedridden and has normal movement in his right leg and right arm weakness. States that his legs have been very swollen and large ever since he had a stroke.. He has a weak right alisa, unable to sign his name but he is able to make his own decisions. He denies any dyspnea at its new and worse than his baseline, is endorsing very minimal pain in his right upper quadrant. Exam Vital Signs Vital Sign - Last Date Time Temp Pulse Resp B/P Pulse Ox O2 Delivery O2 Flow Rate FiO2 04/22/17 11:20 62 04/22/17 11:06 36.3 16 169/73 04/22/17 05:08 98 Room Air Intake and Output 04/21/17 04/21/17 04/22/17 Cumulative From/Thru 15:00 23:00 07:00 04/22/17 01:23 - 04/22/17 05:55 Intake Total 0 ml 0 ml Output Total 150 ml 150 ml Balance -150 ml -150 ml Intake Oral 0 ml 0 ml Output Urine Total 150 ml 150 ml # Bowel Movements 0 0 Exam Gen.: No acute distress pleasant HEENT: Normocephalic, atraumatic, gold dental fillings Heart: Irregular rate, no murmurs Lungs are clear anteriorly Abdomen: Mostly nontender nondistended except in the right upper quadrant has minor pain normal bowel sounds are present Extremities: Swollen lower extremities, right extremity not moving, he is able to move the left lower extremity as well as Upper extremities Neurological: Alert and oriented, no focal deficits Psychiatric: No anxiety or agitation IVs and Medications Medications Reviewed: Medications were reviewed in detail Lab and Diagnostics Result Diagram: 04/22/1721904/22/170 X-Rays, CTs and MRIs CT Abdomen: Impression: Air fluid level in the cecum which is severely dilated and displaced into the midline. There is no small bowel obstruction. 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 Assessment & Plan #Cecal volvulus, present on admission, active - CT consistent with cecal volvulus - Will keep NPO - He is currently hypercoagulated. And I was unaware of his overnight he was given vitamin K 10 mg twice a day which brought it down to around 2. Goal is to get him under 1.5 so he can go to the OR later in the day -- Discussed case with Dr. Ogden, her POA Mr. rodriguez - Surgery consulted -- Patient had a recent cardiac echo in October of this year that showed 60-65% ejection fraction mild aortic stenosis #Chronic atrial fibrillation/DVT, on Coumadin active - INT: 4.1 - Will hold coumadin - INR was 1.55, communicated this to Dr. Ogden, she agrees to take patient to the OR. -- We will need to be bridged back to Coumadin in the am #Chronic hypertension active --Continue metoprolol prior to surgery, hold triamterene #Chronic CAD: Chronic active --Continue home medications, may hold on the a.m. of surgery, the patient was given aspirin this a.m. at 3 --Will continue after surgery #UTI active present admission -- Chronic indwelling catheter, UA is positive urine cultures are pending -- He does not endorse any pain with urination he has a catheter no lower abdominal pain, will wait to treat based on the culture sensitivities #Chronic gout -- Hold Home medication for now GI ppx: Pantoprazole To be admitted as inpatient due to complexity of medical condition that will require more than two days of hospital stay. Pain Evaluation: Adequate Pain Control Resuscitation Status: CPR: Attempt Resuscitation Time spent 25 Елена uF DO Apr 22, 2017 11:50
[2017-04-22 12:56] LABS: INR 1.55 ratio
--- NOTE | 2017-04-22 14:16 | CONS ---
[address] [address] CONSULTATION REPORT PATIENT: MITCHELL ROSENTHAL : 1935 MR#: [id number] ADMIT: 04/22/2017 JOB ID: [id number] DATE OF SERVICE: 04/22/2017 SURGICAL CONSULTATION: CHIEF COMPLAINT: This is an 82-year-old man with a cecal volvulus. This consultation was requested by Елена Fu D.O. HISTORY OF PRESENT ILLNESS: This is an 82-year-old man who presented with acute abdominal pain today and was found to have cecal volvulus on a CT scan that was obtained in the emergency department. Additional details are available in the history and physical dated by Anastasia Perdomo D.O., my resident today. He began having pain yesterday at 3 o'clock p.m. The pain was initially diffuse and then decreased when he arrived to the emergency department. He has never had a colonoscopy. He denied additional symptoms. He is chronically anticoagulated due to history of bilateral DVTs and atrial fibrillation. His INR was 4.1. PAST MEDICAL HISTORY: 1. Atrial fibrillation. 2. Coronary artery disease. He has had an episode of demand ischemia in early 2016 and an episode of NSTEMI in February 2016. Echocardiogram in October reveals normal ejection fraction of 60%-65%. He has been undergoing medical management, without stents or bypass surgery. 3. Chronic lower extremity edema. 4. 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 5. Hypertension. 6. Glaucoma. 7. Cataracts. 8. History of cerebrovascular accident. He is nonambulatory and has a chronic indwelling Ovalle catheter after this event. PAST SURGICAL HISTORY: Laparoscopic right partial nephrectomy. 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 According to his oncology notes from that time, he had a right partial nephrectomy, and a biopsy-proven left-sided renal malignancy, which was watched with serial images and did not significantly increase in size over several years. I reviewed the CT scan from back then as well as the current one and there continues to be no significant increase in size of the left lower pole renal mass. MEDICATIONS: Pravastatin, metoprolol, Maalox, Zofran, senna, MiraLAX. ALLERGIES: CIPROFLOXACIN, ROFECOXIB. SOCIAL HISTORY: He quit smoking many years ago. 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 FAMILY HISTORY: Reviewed and noncontributory. REVIEW OF SYSTEMS: Positive for chronic weakness, chronic lower extremity edema, shortness of breath, abdominal pain, urinary retention requiring indwelling Ovalle catheter, weakness, difficulty with muscle coordination and is otherwise negative. PHYSICAL EXAMINATION: Vital signs are within normal limits. Head: Normocephalic. Neck: Supple. Cardiac: Irregularly irregular rhythm. No murmurs, rubs or gallops. Respiratory: Clear to auscultation bilaterally. Abdomen: Soft, mildly distended, nontender on my examination. There are small well-healed incisions from previous laparoscopic partial nephrectomy. Extremities: Moderate bilateral lower extremity edema, right greater than left. Neurologic: Unable to move his lower extremities. Psychiatric: Normal cognition and judgment. IMAGING: CT scans of the abdomen and pelvis from 2017 are reviewed personally with the radiologist. Comparisons were made to CT scans from [id number] when he had his renal malignancy. He does have a clear cecal volvulus with possible bascule. There is no free air. There is mild dependent fluid. There are multiple renal cysts in bilateral kidneys. A complex new lesion was seen in the midpole of the right kidney and further evaluation has been recommended by the radiologist. LABORATORIES: White blood cell count is 12.3. Hematocrit 46.5. Platelets 141. Comprehensive metabolic panel is within normal limits. Lactate is 1.3. INR on arrival was 4.11. After vitamin K, 10 mg, and FFP, two units, it has dropped to 1.55. ASSESSMENT: An 82-year-old man with cecal volvulus. He also has a history of anticoagulation for bilateral DVTs, and recent demand ischemia versus NSTEMI both in October of 2016 and in February of 2016. PLAN: . RECOMMENDATION: I recommend exploratory laparotomy with probable right colectomy. He is at increased risk of both a stroke and MN given his cerebrovascular and cardiac history. This has been discussed in detail with the patient and we will also be discussed in detail prior to surgery with his . We discussed the possibility of the need for an ostomy, and the indications for this. We discussed the potential for risk of anastomotic leak and subsequent hospitalization thereafter. All of his questions were answered and he is in agreement. This has been booked as a semi urgent case.
--- NOTE | 2017-04-22 15:26 | PCM.HPANE ---
Patient Data Surgeon Admitting Provider:Jm White MD Attending Provider:Елена Fu DO Primary Care Physician:Joselo Schmitt MD Other Provider:Malia Hensley Anesthesia Reason for Visit Cecal Volvulus Ht/WT & BMI Height (Feet): 6 Height (Inches): 4.00 Weight (Kilograms): 111.800 Body Mass Index 30.01 Allergies Coded Allergies: rofecoxib (Verified Allergy, Severe, 10/14/16) ciprofloxacin (Verified Allergy, Unknown, rash, 10/14/16) Past Anesthesia History Anesthesia History: Denies:: Anesthesia Reactions Diabetes History Hx Diabetes?: No MRSA MRSA: No Medications Hypertension Medication: Yes Home Meds Incl Beta Sea: Yes Date Beta Sea Taken: Apr 22, 2017 ([id number]) Active Scripts Nitroglycerin SL (Nitrostat)0.4 Mg Tab.subl0.4 Mg SL Q5MIN PRN For Chest Pain 30 Days Ref 0 Prov:Leta Raza MD 02/13/16 Metoprolol Tartrate 25 Mg Ydaqgb69.5 Mg PO BID 30 Days Ref 0 Prov:Leta Raza MD 02/13/16 Reported Medications oxyCODONE-Acetaminophen 5-325 mg 1 Each Tablet0.5 Tab PO noon PRN For Pain Ref 0 10/14/16 Sennosides (Senna)8.6 Mg Tablet8.6 Mg PO PRN For Constipation 10/14/16 Warfarin Sodium 5 Mg Tablet5 Mg PO M,W, Th, Sa, Parra 30 Days Ref 0 10/14/16 Warfarin Sodium 2.5 Mg Tablet2.5 Mg PO , thu. 30 Days Ref 0 10/14/16 Docusate Sodium (Colace)100 Mg Flqdjyc993 Mg PO BID PRN For Constipation Ref 0 02/13/16 Nystatin 15 Gm Powder1 Applic EXTERNAL BID PRN rash #60 06/21/15 Cyanocobalamin (Vitamin B-12) (Vitamin B-12)1,000 Mcg Tablet1,000 Mcg PO HS 06/19/15 Cholecalciferol (Vitamin D3) (Vitamin D3)1,000 Unit Tab.chew1,000 Unit PO Noon 06/19/15 Aspirin 81 Mg Dyhxeg72 Mg PO DAILY Ref 0 06/19/15 Simvastatin 40 Mg Pybgco87 Mg PO HS 30 Days Ref 0 11/14/14 Triamterene/HCTZ 75-50 mg 1 Each Tablet1 Each PO DAILY 30 Days Ref 0 08/25/14 Allopurinol 100 Mg Ryulbx284 Mg PO DAILY 30 Days Ref 0 08/25/14 oxyCODONE-Acetaminophen 5-325 mg 1 Each Tablet1 Tab PO BID PRN For Pain Ref 0 08/25/14 History History of ENT Problems?: Yes HEENT History: Positive for:: Cataracts (cataract surgery) Dysphagia (WHEN HAD CVA) Denies:: Glaucoma Sinus Problem Denture Type: None Teeth Condition: Within Normal Limits Hx of Heart Problems?: Yes Cardiovascular History: Positive for:: Atrial Fibrillation Coronary Artery Disease (known multivessel disease) Edema Hypertension Irregular Heartbeat (afib) Denies:: Congestive Heart Failure Heart Murmur Pacemaker Other Cardiac History: Demand ischemia versus N STEMI 10/14/16 Echocardiogram 10/15/16 Interpretation Summary The left ventricle is normal in size, wall thickness, and systolic function without any focal wall motion abnormalities. The ejection fraction is estimated to be 60-65%. The right ventricle is not well visualized. The right ventricle grossly appears normal in size with probable normal systolic function. Right ventricular systolic pressure is estimated to be 21 mmHg plus the clinically estimated CVP which cannot be estimated on this exam. The left atrial size is normal. Right atrium not well visualized. There is mild aortic stenosis. The calculated aortic valve area is 1.8 cm2. There is no other significant valvular heart disease. N STEMI 02/13/16 Cardiac catheterization 01/23/2006 demonstrated 60% stenosis of proximal left anterior descending artery 50% stenosis of circumflex and an occluded right coronary artery Hx of Respiratory Problem?: Yes (chronically short of breath) Respiratory History: Denies:: Asthma COPD Emphysema Hx Neurologic Problems?: Yes Neurological History: Positive for:: CVA (right side paralized) Denies:: Dementia Headaches Parkinson's Disease Seizures Hx of GI Problems?: Yes Hx of Problems?: No Genitourinary History: Denies:: Kidney Stones Male Hx: Denies:: Prostate Problems Scrotal Mass Testicular Surgery Hx Musculoskeletal Problems?: Yes Musculoskeletal History: Positive for:: Degenerative Joint Denies:: Back Injury Joint Replacement Musculoskeletal Trauma Hx of Psycho/Social Problems?: Yes Psycho Social History: Positive for:: Anxiety Denies:: Hx Depression Hx Surgeries?: Yes (kidney cysts removed,) Hx Any Other Health Problems?: Yes Other History: 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 Blood Transfusions Denies:: Blood Transfuse Reaction Hx Diabetes: No Hx Alcohol Use: Yes (occasional use)Hx Substance Use: No Smoking Status: Former Smoker Never Smoker Have You Smoked inLast 12 mo: Yes (quit 30 years ago) Stop/Bang Treated for Sleep Apnea?: No Do You Have a CPAP Machine?: No S-Snoring: Do You Snore Loudly: No T-Tired: feel tired, fatigued: No O-Obsered: Observed not breath: No P-Blood Pressure: treated: Yes B- Body Mass Index > 35 kg/m2: No A- Age over 50: Yes N- Neck Large Circumference: No G- Gender Male: Yes HAKAN Total Score: 2 HAKAN Risk Assessment: Low Risk, <3 Yes Risk Assessment Category Category 1A: Patient has history of documented sleep apnea, and HAS NOT received any narcotic, sedative or anesthesia administration during this stay. Category 1B: Patient has history of documented sleep apnea, and HAS received any narcotic , sedative or anesthesia administration during this stay Category 2: Patient has SUSPECTED Obstructive Sleep Apnea, and HAS received any narcotic , sedative or anesthesia administration during this stay. Category 3: Patient has SUSPECTED Obstructive Sleep Apnea and HAS NOT received narcotic, sedative or anesthesia administration during this stay. Category 4: Outpatient in Procedural Areas with known sleep apnea or who screen positive for High Risk via the STOP/BANG questionnaire. Exam Exam Vital Signs Vital Signs Date Time Temp Pulse Resp B/P Pulse Ox O2 Delivery O2 Flow Rate FiO2 04/22/17 12:04 36.7 62 15 158/85 04/22/17 11:20 62 04/22/17 11:06 36.3 74 16 169/73 04/22/17 10:43 36.4 76 15 164/74 04/22/17 09:53 36.7 77 18 175/52 04/22/17 09:30 36.3 83 17 183/78 General Appearance: Oriented X3 HEENT/AIRWAY: MP 2 Lungs: Clear to Auscultation, Normal Air Movement (decreased respiratory effort ) Heart: Normal S1, Normal S2, No Murmurs/Rubs/Gallops, Other (irregularly irregular rhythm) Meds/Labs/Diagnostics Admission Meds Current Medications Ondansetron HCl 8 mg 8 mg ONCE ONCE IVPUSH Last administered on 04/22/17 02: 27; Start 04/22/17 at 01:30; Stop 04/22/17 at 01:32; Status DC Phytonadione/ Dextrose/Water (Vitamin K (Adult)/[facility] Pharm[facility] To Mix) 51 ml @ 102 mls/hr ONCE ONCE IV Last administered on 04/22/17 04:23; Start 04/22/17 at 03:55; Stop 04/22/17 at 04:24; Status DC Aspirin 81 mg 81 mg NOW ONCE PO Last administered on 04/22/17 06:46; Start at 03:55; Stop 04/22/17 at 04:22; Status DC Sodium Chloride 1,000 ml @ 100 mls/hr Q10H IV Last administered on 04/22/17 07:15; Start 04/22/17 at 03:55 Sodium Chloride (Normal Saline) 250 ml @ 10 mls/hr Q24H IV Last administered on 04/22/17 10:46; Start 04/22/17 at 08:05 Metoprolol Tartrate (Lopressor) 12.5 mg BID PO Last administered on 04/22/17 11:52; Start 04/22/17 at 11:25 Labs Test 04/22/17 02:20 04/22/17 03:40 04/22/17 12:30 White Blood Count 12.3th/mm3 (3.8-10.1) Red Blood Count 5.03mil/mm3 (4.40-5.80) Hemoglobin 15.7g/dL (13.8-17.2) Hematocrit 46.5% (41.0-50.0) Mean Corpuscular Volume 92.4fL (81-100) Mean Corpuscular Hemoglobin 31.2pg (27.0-35.0) Mean Corpuscular Hemoglobin Concent 33.8% (32.0-37.0) Red Cell Distribution Width 14.6% (12.3-15.4) Platelet Count 141bil/L (150-400) Neutrophils (%) (Auto) 87.7% (40-74) Lymphocytes (%) (Auto) 5.2% (14-46) Monocytes (%) (Auto) 5.5% (4-12) Eosinophils (%) (Auto) 0.8% (0-5) Basophils (%) (Auto) 0.4% (0-3) Sodium Level 136mEq/L (134-144) Potassium Level 3.9mEq/L (3.5-5.2) Chloride Level 99mEq/L (97-108) Carbon Dioxide Level 23mmol/L (18-29) Blood Urea Nitrogen 21mg/dL (8-27) Creatinine 0.83mg/dL (0.76-1.27) Estimat Glomerular Filtration Rate 94mL/min (>59) Glucose Level 122mg/dL (60-99) Lactic Acid Level 1.3mmol/L (0.4-2.0) Calcium Level 10.1mg/dL (8.5-10.1) Magnesium Level 1.7mg/dL (1.6-2.6) Total Bilirubin 0.9mg/dL (0.0-1.2) Aspartate Amino Transf (AST/SGOT) 13U/L (0-50) Alanine Aminotransferase (ALT/SGPT) 7U/L (0-44) Alkaline Phosphatase 56U/L (25-160) Total Protein 7.0g/dL (6.4-8.4) Albumin 3.4g/dL (3.4-5.0) Lipase 10U/L (13-60) Urine Color Yellow (YELLOW) Urine Appearance Cloudy (CLEAR,HAZY) Urine pH 5.0 (5.0-8.0) Urine Specific [place] 1.030 (1.003-1.035) Urine Protein >300mg/dL (NEG,TRACE) Urine Glucose (UA) Negativemg/dL (NEGATIVE) Urine Ketones Tracemg/dL (NEGATIVE) Urine Occult Blood Small (NEGATIVE) Urine Nitrite Positive (NEGATIVE) Urine Bilirubin Negative (NEGATIVE) Urine Urobilinogen Normalmg/dL (NORMAL) Urine Leukocyte Esterase Trace (NEGATIVE) Urine RBC 0-2/hpf (0-2) Urine WBC >50/hpf (0-5) Urine Epithelial Cells Occasional/hpf (NONE-MOD) Urine Crystals None seen (NONE SEEN) Urine Bacteria Many/hpf (NONE-FEW) Urine Hyaline Casts Occasional/lpf (NONE) Urine Granular Casts None seen (NONE SEEN) Urine Waxy Casts None seen (NONE SEEN) Urine Red Blood Cell Casts None seen (NONE SEEN) Urine White Blood Cell Casts None seen (NONE SEEN) Urine Mucus None seen (None Seen) Urine Trichomonas None seen (NONE SEEN) Urine Yeast None (NONE SEEN) Urinalysis Comment None Urine Culture Reflexed Indicated Prothrombin Time 16.7sec (8.1-12.5) Prothromb Time International Ratio 1.55ratio Plan Impression Patient chart reviewed, patient interviewed and anesthestic plan with risks, benefits, and alternatives discussed, and informed consent obtained. ASA Physical Status: ASA4 Life Threatening Anesthetic Support Modalities: Arterial Line Anesthetic Plan: GA Bene/Risks/Altern/Consents: Yes HP Complete Prior to Induction: Yes Tarun Means MD Apr 22, 2017 15:26
[2017-04-22] MEDS ORDERED: metroNIDAZOLE 500 mg/100 mL NS Premix IV ONE (16:20)
[2017-04-22] MEDS ORDERED: metroNIDAZOLE Inj 500 MG in IV Premix 1 EACH IV ONE (16:20)
[2017-04-22] MEDS ORDERED: Bupivacaine Liposome 1.3% 20 mL Inj ONE (18:05)
[2017-04-22] MEDS ORDERED: Bupivacaine Liposome 1.3% 20 mL Inj INFILTRATE ONE (18:09)
[2017-04-22] MEDS ORDERED: Sodium Chloride Bacteriostatic 30 mL Inj INJ ONE (18:09)
[2017-04-22] MEDS ORDERED: Lactated Ringer's 1,000 ML IV ONE (18:22)
[2017-04-22] MEDS ORDERED: Lactated Ringer's 1,000 ML IV SCH (18:39)
[2017-04-22] MEDS ORDERED: Lactated Ringer's 500 ML IV PRN (18:39)
[2017-04-22] MEDS ORDERED: EPHEDrine Sulfate 50 mg/mL Inj IVPUSH PRN (18:40)
[2017-04-22] MEDS ORDERED: fentaNYL-PF 50 mCg/mL 2 mL Inj IVPUSH PRN (18:40)
[2017-04-22] MEDS ORDERED: Dexamethasone 4 mg/mL Inj IVPUSH PRN (18:40)
[2017-04-22] MEDS ORDERED: MetoCLOpramide 5 mg/mL 2 mL Inj IVPUSH PRN ×3 (18:40→19:50)
[2017-04-22] MEDS ORDERED: Phenylephrine 10,000 mCg/mL Inj IVPUSH PRN (18:40)
[2017-04-22] MEDS ORDERED: HYDROmorphone PCA 0.2 mg/mL 30 mL Inj IV PRN (18:55)
--- NOTE | 2017-04-22 18:57 | PCM.ANEP1 ---
Post Anesthesia PACU Phase 1 Assessment Vital Signs Vital Signs Date Time Temp Pulse Resp B/P Pulse Ox O2 Delivery O2 Flow Rate FiO2 04/22/17 18:50 80 24 153/62 100 Simple Mask 10 04/22/17 18:45 36.9 80 25 136/72 99 Simple Mask 10 04/22/17 12:04 36.7 62 15 158/85 04/22/17 11:20 62 04/22/17 11:06 36.3 74 16 169/73 Anesthetic Administered: GA Level of Alertness: Awake, talking Pain: No (REPORTED TO RN) Pain Scale Score: 5 Nausea or Vomiting: No CV Function & Hydration Stable: Yes Airway Device: Lungs: Clear to Auscultation, Normal Air Movement (decreased respiratory effort ) PACU Phase 2 Assessment Patient Instructions Provided: N/A Tarun Means MD Apr 22, 2017 18:56
[2017-04-22 18:58] LABS: INR 1.43 ratio
[2017-04-22] MEDS: HYDROmorphone 1 mg/mL Inj IVPUSH PRN ×2 (19:25→19:31)
--- NOTE | 2017-04-22 19:39 | OP ---
[address] [address] OPERATIVE REPORT PATIENT: MITCHELL ROSENTHAL : 1935 MR#: [id number] ADMIT: 04/22/2017 JOB ID: [id number] DATE OF SURGERY: 04/22/2017 SURGEON: Melanie Ogden MD PARATRANSIT OPERATOR: Gorge WOOTENIII; Dirk Naik PA-C; SUGAR PottsIII PREOPERATIVE DIAGNOSIS(ES): Cecal volvulus. POSTOPERATIVE DIAGNOSIS(ES): Cecal volvulus. PROCEDURE PERFORMED: 1. Right hemicolectomy with primary hand-sewn anastomosis. 2. Rectus abdominis blocks with liposomal bupivacaine. HISTORY OF PRESENT ILLNESS: This is an 82-year-old man with a history of stroke, myocardial infarction, atrial fibrillation, bilateral papillary renal cell carcinoma, cutaneous lymphoma, who is bedridden secondary to a stroke, who presented to the emergency department with acute abdominal pain, and on CT scan was found to have a cecal volvulus. His INR was greater than 4 upon arrival. He was therefore given vitamin K and FFP and was taken on a semi-urgent basis to the operating room. FINDINGS: 1. Cecal volvulus. The cecum appeared torsed around the appendix, the tip of which was adhered to a nodule in the retroperitoneum adjacent to the right kidney. There appeared to be carcinomatosis on the mesentery and surface of the colon, as well as Gerota's fascia. The patient has a known history of bilateral papillary renal cell carcinoma, which has been present for at least nine years, and has been treated with surveillance alone in that time frame. 2. The resection margins began 10 cm from the fat pad of Treves to the midportion of the transverse colon. 3. A primary hand-sewn [id number] anastomosis was performed. DESCRIPTION OF PROCEDURE: The patient was brought to the operating room and placed in supine position. General anesthesia was induced. A warming blanket and SCDs were placed. Antibiotics were infused. A preoperative prep had not been performed. An arterial line had been placed by the Anesthesia service. The patient has an indwelling Ovalle catheter at baseline. The operative field was prepped and draped in sterile fashion. A pause was performed to confirm the correct patient, procedure, site, and side. SCDs had been placed. A vertical midline incision was made from 2 cm above the umbilicus to the xiphoid. The fascia was divided. Of note, the patient had a previously existing periumbilical incisional hernia. A portion of the hernia was involved in the lower aspect of this incision. The cecum was identified and found to be large and torsed, but not perforated. Detorsion was performed, and an anchoring point was found from the appendix to the retroperitoneum on the right. Resection margins were chosen on the terminal ileum, approximately 10 cm proximal to the fat pad of Treves, and at the midportion of the transverse colon. Then a blue load of the BANDAR stapler was used to divide the proximal and distal ends. LigaSure device was used to divide the mesentery. Given low suspicion for colorectal malignancy, and intraoperative findings consistent with likely metastases from the previously existing renal cell carcinoma, the mesentery was taken close to the bowel. There was one mesenteric bleeder that was controlled with interrupted 3-0 silk stitches. The specimen was removed from the field and ultimately was opened on the back table. There was no sign of malignancy within the colon, but there was what appeared to be carcinomatosis on the surface. A single specimen of this was sent for final pathology. Attention was turned to the anastomosis. A wound protector had been previously placed. Towels were placed around the surgical site. A [id number]-[id number]-[id number] anastomosis was performed with a seromuscular row of Lembert sutures using 2-0 silks, and a running inner row of full-thickness bites using 3-0 Vicryl. The anastomosis was widely patent at the completion of this portion of the procedure. The fascia was closed with running 0 PDS stitch. Of note, the superior aspect of the previously existing incisional hernia was closed at the inferior portion of the current fascial incision during this portion of the procedure. 20 mL of liposomal bupivacaine was injected into the rectus sheath for postoperative pain control. Copious irrigation was performed of the wound. Skin was closed with madhavi. A sterile dressing was placed. The patient was awakened from general anesthesia and taken to postoperative care unit in good condition. COMPLICATIONS: None. SPECIMENS: 1. Terminal ileum and right colon, sent for final pathology. 2. Peritoneal nodule which was taken off of the surface of the cecum, sent for final pathology. ESTIMATED BLOOD LOSS: 100 mL. MTDD
[2017-04-22] MEDS: Ondansetron 2 mg/mL 2 mL Inj IVPUSH PRN (20:02)
[2017-04-22] MEDS: Acetaminophen IV 1,000 MG in IV Premix 1 EACH IV SCH (21:47)
[2017-04-23] VITALS (13 sets, daily range): BP systolic 120–166; BP diastolic 60–74; PULSE 58–95; RESP 18–22; O2SAT 96–99
[2017-04-23] MEDS: Dextrose 5% Lactated Ringer's 1,000 ML IV SCH ×2 (01:10→08:17)
[2017-04-23] MEDS: Heparin 5,000 Unit/mL Inj SUBQ SCH ×3 (01:11→17:25)
[2017-04-23] MEDS: Acetaminophen IV 1,000 MG in IV Premix 1 EACH IV SCH ×3 (02:52→17:01)
[2017-04-23 07:04] LABS: BASOPHILS % (AUTO) 0.1 % (0-3); EOSINOPHILS % (AUTO) 0 % (0-5); Mean Corpuscular Hemoglobin 30.7 pg (27.0-35.0); Mean Corpuscular Volume 92.7 fL (81-100); NEUTROPHILS % (AUTO) 89.2 % (40-74); Platelet Count 142 bil/L (150-400)
--- NOTE | 2017-04-23 07:24 | PCM.PNSURG ---
Subjective Visit Information: Reason for Visit Cecal Volvulus Surgery/Surgery Date Post-Op Day # Date of Admission: Apr 22, 2017 at 04:07 Hospital Day # Subjective: Stable overnight. Oozing from midline wound required dressing changes, Hct normal. UOP adequate. Blood glucose not recorded in EMR. No N/V, flatus, or BM. Objective Vital Sign- Last 8 Hours Date Time Temp Pulse Resp B/P Pulse Ox O2 Delivery O2 Flow Rate FiO2 04/23/17 06:12 72 04/23/17 06:00 18 98 04/23/17 04:49 36.4 75 20 132/64 97 Room Air 04/23/17 04:00 18 97 04/23/17 00:30 36.2 70 20 166/72 96 Room Air 04/23/17 00:01 20 96 Intake and Output- Last 8 Hour 04/23/17 Cumulative From/Thru 07:00 04/22/17 01:23 - 04/23/17 06:13 Intake Total 1049 ml 3325 ml Output Total 600 ml 1000 ml Balance 449 ml 2325 ml Intake Oral 0 ml 0 ml IV Total 1049 ml 2815 ml FFP 510 ml Output Urine Total 600 ml 900 ml Estimated Blood Loss 100 ml # Bowel Movements 0 0 General: Alert, Oriented X3, Cooperative, No Acute Distress Abdomen: Soft, Non-tender, Non-distended, Other (slow oozing from midline wound with saturated dressing) Result Diagram: 04/23/17 0613 04/22/17 0220 Assessment & Plan Impression POD1 open R colectomy for cecal volvulus. Problems: Plan Recheck INR Hold pressure to midline wound Clear liquid diet, I have told him to go slow. Impact beverage Blood glucose management with all sugars to be <180 No change to monsalve or ambulation as he has an indwelling catheter at baseline and does not ambulate Await return of bowel function Resuscitation Status: CPR: Attempt Resuscitation Melanie Ogden MD Apr 23, 2017 07:24
[2017-04-23 08:32] LABS: INR 1.26 ratio
[2017-04-23] MEDS ORDERED: LORA-302 PO (08:48)
[2017-04-23] MEDS: 0.9% Sodium Chloride 1,000 ML IV SCH ×2 (10:27→19:29)
[2017-04-23] MEDS ORDERED: Polyethylene Glycol (PEG) 17 Gm Powder PO SCH (12:00)
[2017-04-23] MEDS ORDERED: Insulin Human REGular 300 Unit/3 mL Inj SUBQ SCH (14:30)
[2017-04-23] MEDS ORDERED: HYDROmorphone 0.5 mg/0.5 mL iSecure Syringe IVPUSH PRN (17:10)
[2017-04-23] MEDS ORDERED: 0.9% Sodium Chloride 500 ML IV ONE (17:15)
[2017-04-23] MEDS: 0.9% Sodium Chloride 250 ML IV SCH (19:41)
--- NOTE | 2017-04-23 20:39 | PCM.PNMED ---
Subjective Date of Service Apr 23, 2017 Subjective Patient is seen and examined. He is drinking clear liquids sitting up in bed, is in the room. He has a tremor in his hand and says that Ativan helps him every night with the tremor and to sleep. Patient is forgetting to click for the pain medication with the Dilaudid pain pump that has been ordered by the surgery and has been asking the nurse for his home medication oxycodone instead. His urine is concentrated and it looks like it is less than 0.5 mL/kg/h. Staff is concerned about his urine output. Patient had some seepage onto the dressing that caused some level of concern from surgical team this morning Exam Vital Signs Vital Sign - Last Date Time Temp Pulse Resp B/P Pulse Ox O2 Delivery O2 Flow Rate FiO2 04/23/17 19:42 36.7 95 18 132/72 04/23/17 17:36 97 Nasal Cannula 2.00 Intake and Output 04/22/17 04/22/17 04/23/17 Cumulative From/Thru 15:00 23:00 07:00 04/22/17 01:23 - 04/23/17 06:13 Intake Total 1076 ml 1200 ml 1049 ml 3325 ml Output Total 250 ml 600 ml 1000 ml Balance 1076 ml 950 ml 449 ml 2325 ml Intake Oral 0 ml 0 ml IV Total 566 ml 1200 ml 1049 ml 2815 ml FFP 510 ml 510 ml Output Urine Total 150 ml 600 ml 900 ml Estimated Blood Loss 100 ml 100 ml # Bowel Movements 0 0 Exam Gen.: No acute distress pleasant HEENT: Normocephalic, atraumatic, gold dental fillings Heart: Irregular rate, no murmurs Lungs are clear anteriorly Abdomen: Mostly nontender nondistended except in the right upper quadrant has minor pain normal bowel sounds are present. slow oozing from midline wound with saturated dressing, apparently more bloody in the am per surgery PA Extremities: Swollen lower extremities, right extremity not moving, he is able to move the left lower extremity as well as Upper extremities Neurological: Alert and oriented, no focal deficits, noticeable hand tremor Psychiatric: No anxiety or agitation Neck: Positive for mild JVD IVs and Medications IV Fluids NSS 100 cc/hr Medications Reviewed: Medications were reviewed in detail Lab and Diagnostics Result Diagram: 04/23/1761204/23/17612 X-Rays, CTs and MRIs CT Abdomen: Impression: Air fluid level in the cecum which is severely dilated and displaced into the midline. There is no small bowel obstruction. 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 Assessment & Plan #Cecal volvulus s/p R hemicolectomy, present on admission, active - CT consistent with cecal volvulus - Will keep NPO - He is hypercoagulated on arrival. Overnight he was given vitamin K 10 mg which brought it down to around 2. INR was doen to 1.55. PT went to OR on 04/22 PM, underwent R hemicolectomy -- Discussed case with Dr. Ogden, her POA Mr. rodriguez - Surgery consulted -- Patient had a recent cardiac echo in October of this year that showed 60-65% ejection fraction mild aortic stenosis -- Postop day #1, there are several duplicates and medication list cleaned up the medication list. Discontinued Dilaudid pump as patient is forgetting to clinic. Put him on a 0.5 mg of IV Dilaudid every 3 hours when necessary and oxycodone by mouth. -- Explained to that I cannot give her Ativan with Dilaudid as it may cause resp depression in this patient -- 500 mL small bolus to see if his urine output would improve, discussed the possibility of need for administration of Lasix with the night hospitalist, BNP is also ordered -- 1 unit of platelets is ordered, the surgery was concerned about seepage and wound dressing. -- INR is 1. 27 this a.m. continue to monitor. #Chronic atrial fibrillation/DVT, on Coumadin active - INT: 4.1 at admission - Coumadin was held - INR was 1.55 on 04/22, communicated this to Dr. Ogden, she agrees to take patient to the OR. -- For surgical procedures at high risk bleeding we have to wait 48 hours prior to starting bridging #Chronic hypertension active --Continue metoprolol, hold triamterene #Chronic CAD: Chronic active --Continue home medications, may hold on the a.m. of surgery, the patient was given aspirin this a.m. at 3 --Will continue after surgery #UTI active present admission -- Chronic indwelling catheter, UA is positive urine cultures are pending -- He does not endorse any pain with urination he has a catheter no lower abdominal pain, will wait to treat based on the culture sensitivities -- Urine grew Escherichia coli sensitive is still pending #Chronic gout -- Hold Home medication for now GI ppx: Pantoprazole To be admitted as inpatient due to complexity of medical condition that will require more than two days of hospital stay. Pain Evaluation: Pain not Controlled VTE Mechanical Devices: Intermittant Pneumatic CD Resuscitation Status: CPR: Attempt Resuscitation Time spent 30 min Елена Fu DO Apr 23, 2017 20:39
[2017-04-24] VITALS (8 sets, daily range): BP systolic 127–192; BP diastolic 73–94; PULSE 75–89; RESP 18–22; O2SAT 96–100
[2017-04-24] MEDS: Heparin 5,000 Unit/mL Inj SUBQ SCH ×2 (00:04→08:06)
[2017-04-24] MEDS: Acetaminophen IV 1,000 MG in IV Premix 1 EACH IV SCH ×4 (00:04→18:08)
[2017-04-24 06:38] LABS: Mean Corpuscular Hemoglobin 30.7 pg (27.0-35.0)
[2017-04-24 07:01] LABS: INR 1.18 ratio
[2017-04-24] MEDS: 0.9% Sodium Chloride 250 ML IV SCH ×2 (07:51→18:09)
[2017-04-24] MEDS: 0.9% Sodium Chloride 1,000 ML IV SCH ×2 (07:51→14:37)
--- NOTE | 2017-04-24 08:21 | PCM.PNSURG ---
Subjective Date of Service: Apr 24, 2017 Date of Service: Apr 24, 2017 Visit Information: Reason for Visit Cecal Volvulus Surgery/Surgery Date Post-Op Day # 2 Date of Admission: Apr 22, 2017 at 04:07 Subjective: Patient has no complaints at this time. He is having no nausea, vomiting, abdominal pain, or chest pain. He states he is having flatus but does not feel hungry at this point. His pain is well-controlled with by mouth medication. Postop General: No Complaints, No Chest Pain Gastrointestinal: Passing Flatus Pain Management: PO Postop Activity: Other (chronically bedridden post CVA) Objective Objective Bleeding at surgical site has subsided after cautery yesterday. Vital Sign- Last 8 Hours Date Time Temp Pulse Resp B/P Pulse Ox O2 Delivery O2 Flow Rate FiO2 04/24/17 04:35 36.9 88 22 152/75 100 Nasal Cannula 1.50 04/24/17 03:25 89 Intake and Output- Last 8 Hour 04/24/17 Cumulative From/Thru 07:00 04/22/17 01:23 - 04/24/17 06:11 Intake Total 1210 ml 6680 ml Output Total 300 ml 1650 ml Balance 910 ml 5030 ml Intake Oral 0 ml 376 ml IV Total 1210 ml 5544 ml FFP 760 ml Output Urine Total 300 ml 1550 ml Estimated Blood Loss 100 ml # Bowel Movements 0 General: Alert, Oriented X3, Cooperative, No Acute Distress Lungs: Clear to Auscultation Heart: Normal S1, Normal S2, Other (irregular bleeding irregular) Abdomen: Benign, Soft, Appropriately tender, Non-distended Catheters: Urethral 2 Way Ovalle (chronic indwelling catheter) Result Diagram: 04/24/1702 04/24/17601 Lab & Micro Results: CBC Test 04/23/17 06:13 04/24/17 06:02 Neutrophils (%) (Auto) 89.2% (40-74) Lymphocytes (%) (Auto) 2.5% (14-46) Monocytes (%) (Auto) 8.0% (4-12) Eosinophils (%) (Auto) 0% (0-5) Basophils (%) (Auto) 0.1% (0-3) White Blood Count 10.7th/mm3 (3.8-10.1) Red Blood Count 3.71mil/mm3 (4.40-5.80) Hemoglobin 11.4g/dL (13.8-17.2) Hematocrit 34.5% (41.0-50.0) Mean Corpuscular Volume 93.0fL (81-100) Mean Corpuscular Hemoglobin 30.7pg (27.0-35.0) Mean Corpuscular Hemoglobin Concent 33.0% (32.0-37.0) Red Cell Distribution Width 14.3% (12.3-15.4) Platelet Count 138bil/L (150-400) CMP Test 04/22/17 02:20 04/23/17 06:13 04/24/17 06:02 Lactic Acid Level 1.3mmol/L Magnesium Level 1.7mg/dL Lipase 10U/L Hemoglobin A1c 5.7% Pro-B-Type Natriuretic Peptide 4431pg/mL Sodium Level 138mEq/L Potassium Level 3.8mEq/L Chloride Level 101mEq/L Carbon Dioxide Level 23mmol/L Blood Urea Nitrogen 20mg/dL Creatinine 0.77mg/dL Estimat Glomerular Filtration Rate 103mL/min Glucose Level 116mg/dL Calcium Level 8.7mg/dL Total Bilirubin 1.2mg/dL Aspartate Amino Transf (AST/SGOT) 14U/L Alanine Aminotransferase (ALT/SGPT) 5U/L Alkaline Phosphatase 46U/L Total Protein 5.3g/dL Albumin 3.0g/dL Assessment & Plan Problems: (1) Cecal volvulus Plan: Open right colectomy for cecal volvulus -Postoperatively day 2 -Pain control managed with scheduled by mouth medication -Advance to liquid diet as tolerated -Continue to monitor blood glucose, keep below 180 -Continue Ovalle as this is chronically indwelling -No ambulation since patient is bedridden at baseline. Status: Acute ICD Code: K56.2 (2) Elevated INR (international normalized ratio) due to prior anticoagulant medication ingestion Status: Acute ICD Code: R78.89 Pain Management: Scheduled by mouth medication VTE Prophylaxis: Sub-Q Heparin (Unfractionated) Resuscitation Status: CPR: Attempt Resuscitation Attending Statement: I examined and interviewed this patient and I agree with the note above. He is passing flatus, therefore his diet will be advanced to full liquids today. MD Hernandez Chino Brook L DO Apr 24, 2017 08:10 Melanie Ogden MD Apr 24, 2017 12:07
[2017-04-24] MEDS ORDERED: Lidocaine 2% 5 mL Topical Jelly MUC_MEMBRM PRN (10:15)
[2017-04-24] MEDS ORDERED: Lidocaine 2% 6mL Topical Jelly MUC_MEMBRM PRN (11:50)
[2017-04-24] MEDS ORDERED: 0.9% Sodium Chloride 500 ML IV ONE (11:50)
--- NOTE | 2017-04-24 14:34 | CONS ---
[address] [address] CONSULTATION REPORT PATIENT: MITCHELL ROSENTHAL : 1935 MR#: [id number] ADMIT: 04/22/2017 JOB ID: [id number] DATE OF SERVICE: 04/24/2017 INFECTIOUS DISEASE CONSULTATION: I thank Dr. Fu for this timely consult. REASON FOR CONSULTATION: Pyuria with the ESBL E. coli bacteriuria. HISTORY OF PRESENT ILLNESS: The patient is a unfortunate 82-year-old gentleman well known to me from an admission several months ago. On this occasion the patient was admitted with abdominal pain. He was fairly rapidly determined to have a cecal volvulus and General Surgery was involved. The patient underwent right hemicolectomy on April 22, which was the day of admission. He tolerated that procedure well and is actually convalescing fairly steadily at this point. Infectious disease was consulted because his urine grew a multi-drug resistant organism and he had some pyuria. Despite that, he has not had fevers, chills, or sweats, and he denies any suprapubic type symptoms. Recall that this patient has been colonized in the past too with very resistant organisms and has an indwelling Ovalle because he has a neurogenic bladder secondary to a stroke in the past. This afternoon the patient is sitting up at about 30 degrees in bed. He is awake, alert, pleasant, and conversational. He tells us that he is having no fevers, no chills, no headache, and no significant pulmonary symptoms. He has some expected intra-abdominal pain relative to his surgery of only two days ago. He has no urinary complaints but of course has an indwelling Ovalle and it is difficult to follow. PAST MEDICAL HISTORY: 1. 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 2. Chronic Ovalle since 2010 with history of multiple urinary tract infections including ESBL organisms. 3. Organic heart disease. a. AFIB. b. Coronary artery disease. c. Status post myocardial infarction. 4. Hypertension. 5. Hyperlipidemia. 6. Renal cell carcinoma. 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 He smoked early in his life but not for decades. Does not drink alcohol. Has basically been bedridden at home for five years. FAMILY HISTORY: Was reviewed. There is no family history of tuberculosis in first- or second-degree relatives. REVIEW OF SYSTEMS: Today the patient has no significant headache. No new visual change. No sore throat. No cough or shortness of breath. No fevers, chills, or sweats. He does have abdominal pain, which is reason he came in, and he just 48 hours ago underwent an exploratory laparotomy and right hemicolectomy. He is not having nausea or vomiting at this point. He is still n.p.o. as the surgeons wait for return of bowel function. He has a chronic indwelling Ovalle which does not bother him. He has edema of both legs, and the right is much worse than the left on a chronic basis. He cannot walk at all as he has a pretty complete right hemiplegia and balance issues related to his brainstem CVA. No skin rash. Remainder of the review of systems is negative. PHYSICAL EXAMINATION: Reveals an afebrile gentleman, his T-max 37.7 right at midnight. Otherwise he has been completely afebrile through this 2-1/2 day hospital stay; 36.8 now. Pulse 75, respiratory rate 18, blood pressure 131/73. He is saturating well on room air. He is awake, alert, pleasant, conversational. Head without trauma. Eyes without conjunctivitis. Nose normal. Oral cavity: No thrush or hairy leukoplakia. Neck without adenopathy or JVD. Cardiac tones irregular rate and rhythm. No significant murmur. Lungs clear. Abdomen is slightly distended, and just a bit tender. He has a covered midline incision which is vertical and there is no significant cellulitis or drainage or tenderness, but expected postop tenderness for two days. Penis and scrotum appear normal. He has an indwelling Ovalle catheter which has been there for years. His right lower extremity is massively edematous, 4+ edema all the way up to the waist, and the left about 2+. He has no strength on the right side of his body. He can move his right upper extremity just a bit, right lower extremity basically not at all. The left side has intact strength. His speech is fluent. No skin rashes noted. No obvious synovitis. No other notable physical findings. LABORATORIES: Include white count 10,700, platelets 138, creatinine 0.77. LFTs are normal. Urinalysis: Greater than 50 white cells when he came in. This is the same as when I saw the patient in October and he had heavy pyuria. Micro: His urine is currently growing an ESBL E. coli. This is susceptible to carbapenems and gentamycin. Interestingly it is resistant to tobramycin. IMAGING: Includes an abdominal CT done during this admission which shows a displaced cecum consistent with cecal volvulus that was subsequently surgically corrected. IMPRESSION: I see no evidence for urinary tract infection in this patient. His white count actually was somewhat elevated when he came in with the cecal volvulus and has been falling postoperatively despite the absence of any antibiotic. He is known to have been colonized in the past with ESBL E. coli in his urine and I see no reason for that to change. The only concern I might have about a possible lower urinary tract infection at this point is the heavy pyuria, but that has also been observed previously as well. One could reasonably not give any antibiotics at all at this point for asymptomatic bacteriuria but in view of the patient's heavy pyuria and postop state we will give him a single dose of fosfomycin to try and clear this bacteriuria and reduce the risk of any potential postop infection. RECOMMENDATIONS: 1. Fosfomycin 3 g x1 dose orally. 2. This can be given tomorrow or whenever he is able to take some liquid. 3. No additional antibiotics are indicated at this point. 4. ID will go ahead and sign off at this time, but please do not hesitate to call me if there are questions forthcoming. Thank you very much.
--- NOTE | 2017-04-24 15:26 | PCM.CONPHA ---
Subjective Date of Service: Apr 24, 2017 Acute lower abdominal pain Reason for Pharmacy Consult: Anticoagulation Management Objective Vital Signs Date Time Temp Pulse Resp B/P Pulse Ox O2 Delivery O2 Flow Rate FiO2 04/24/17 14:13 36.7 88 18 192/94 96 04/24/17 08:09 36.8 75 18 137/73 97 Room Air 04/24/17 08:00 78 04/24/17 04:35 36.9 88 22 152/75 100 Nasal Cannula 1.50 04/24/17 03:25 89 04/24/17 00:05 37.7 88 20 151/89 97 Nasal Cannula 1.50 04/23/17 22:30 36.9 83 22 123/60 04/23/17 21:30 Supplement Oxygen 04/23/17 20:15 36.9 82 19 132/74 04/23/17 19:42 36.7 95 18 132/72 04/23/17 17:36 36.3 86 18 125/73 97 Nasal Cannula 2.00 04/23/17 15:39 Supplement Oxygen 04/23/17 15:38 78 21 99 Nasal Cannula 1.50 Intake and Output 04/22/17 04/23/17 04/24/17 00:00 00:00 00:00 Intake Total 2276 ml 3194 ml Output Total 400 ml 950 ml Balance 1876 ml 2244 ml Weight (Kilograms): 111.800 Height (Feet): 6 Height (Inches): 4.00 Test 04/22/17 02:20 04/22/17 03:40 04/22/17 18:21 04/23/17 06:13 Lactic Acid Level 1.3mmol/L (0.4-2.0) Magnesium Level 1.7mg/dL (1.6-2.6) Lipase 10U/L (13-60) Urine Color Yellow (YELLOW) Urine Appearance Cloudy (CLEAR,HAZY) Urine pH 5.0 (5.0-8.0) Urine Specific Raymond 1.030 (1.003-1.035) Urine Protein >300mg/dL (NEG,TRACE) Urine Glucose (UA) Negativemg/dL (NEGATIVE) Urine Ketones Tracemg/dL (NEGATIVE) Urine Occult Blood Small (NEGATIVE) Urine Nitrite Positive (NEGATIVE) Urine Bilirubin Negative (NEGATIVE) Urine Urobilinogen Normalmg/dL (NORMAL) Urine Leukocyte Esterase Trace (NEGATIVE) Urine RBC 0-2/hpf (0-2) Urine WBC >50/hpf (0-5) Urine Epithelial Cells Occasional/hpf (NONE-MOD) Urine Crystals None seen (NONE SEEN) Urine Bacteria Many/hpf (NONE-FEW) Urine Hyaline Casts Occasional/lpf (NONE) Urine Granular Casts None seen (NONE SEEN) Urine Waxy Casts None seen (NONE SEEN) Urine Red Blood Cell Casts None seen (NONE SEEN) Urine White Blood Cell Casts None seen (NONE SEEN) Urine Mucus None seen (None Seen) Urine Trichomonas None seen (NONE SEEN) Urine Yeast None (NONE SEEN) Urinalysis Comment None Urine Culture Reflexed Indicated Activated Partial Thromboplast Time 27.8sec (22.8-33.0) Neutrophils (%) (Auto) 89.2% (40-74) Lymphocytes (%) (Auto) 2.5% (14-46) Monocytes (%) (Auto) 8.0% (4-12) Eosinophils (%) (Auto) 0% (0-5) Basophils (%) (Auto) 0.1% (0-3) Hemoglobin A1c 5.7% (4.8-5.6) Pro-B-Type Natriuretic Peptide 4431pg/mL (0-486) Test 04/24/17 06:02 White Blood Count 10.7th/mm3 (3.8-10.1) Red Blood Count 3.71mil/mm3 (4.40-5.80) Hemoglobin 11.4g/dL (13.8-17.2) Hematocrit 34.5% (41.0-50.0) Mean Corpuscular Volume 93.0fL (81-100) Mean Corpuscular Hemoglobin 30.7pg (27.0-35.0) Mean Corpuscular Hemoglobin Concent 33.0% (32.0-37.0) Red Cell Distribution Width 14.3% (12.3-15.4) Platelet Count 138bil/L (150-400) Prothrombin Time 12.7sec (8.1-12.5) Prothromb Time International Ratio 1.18ratio Sodium Level 138mEq/L (134-144) Potassium Level 3.8mEq/L (3.5-5.2) Chloride Level 101mEq/L (97-108) Carbon Dioxide Level 23mmol/L (18-29) Blood Urea Nitrogen 20mg/dL (8-27) Creatinine 0.77mg/dL (0.76-1.27) Estimat Glomerular Filtration Rate 103mL/min (>59) Glucose Level 116mg/dL (60-99) Calcium Level 8.7mg/dL (8.5-10.1) Total Bilirubin 1.2mg/dL (0.0-1.2) Aspartate Amino Transf (AST/SGOT) 14U/L (0-50) Alanine Aminotransferase (ALT/SGPT) 5U/L (0-44) Alkaline Phosphatase 46U/L (25-160) Total Protein 5.3g/dL (6.4-8.4) Albumin 3.0g/dL (3.4-5.0) Assessment/Plan Assessment/Plan WARFARIN MANAGEMENT A\ 82yo M with history of AFIB and 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 Home warfarin dose 2.5mg Tu,Thu; 5mg all other days Goal INR=2-3 Current INR=1.18 HCT=34.5 Ygh=376 Patient had been super therapeutic INR on admission and given Vitamin K 10mg IV x1 Warfarin has been held for surgery and now will be restarted. Heparin 5000units subQ q8h currently ordered P\ Patient did receive Vitamin K previously Will start with Warfarin 5mg po x1 tonight and monitor INRs to adjust. May need a larger dose due to Vitamin K administration, will see response to 5mg. Mariano [facility] Apr 24, 2017 15:26
[2017-04-24] MEDS: Ondansetron 2 mg/mL 2 mL Inj IVPUSH PRN ×2 (16:33→21:51)
--- NOTE | 2017-04-24 21:17 | PCM.PNMED ---
Subjective Date of Service Apr 24, 2017 Subjective Patient is seen and examined. He is eating well per . Urine is still concentrated, low urine output though somewhat improved from day before. He has no shortness of breath, no conversational dyspnea. Right leg swelling at baseline, left foot appears more swollen. . Pain is well controlled on oxycodone by mouth daily Exam Vital Signs Vital Sign - Last Date Time Temp Pulse Resp B/P Pulse Ox O2 Delivery O2 Flow Rate FiO2 04/24/17 08:09 36.8 75 18 137/73 97 Room Air 04/24/17 04:35 1.50 Intake and Output 04/23/17 04/23/17 04/24/17 Cumulative From/Thru 15:00 23:00 07:00 04/22/17 01:23 - 04/24/17 06:11 Intake Total 2145 ml 1210 ml 6680 ml Output Total 350 ml 300 ml 1650 ml Balance 1795 ml 910 ml 5030 ml Intake Oral 376 ml 0 ml 376 ml IV Total 1519 ml 1210 ml 5544 ml FFP 250 ml 760 ml Output Urine Total 350 ml 300 ml 1550 ml Estimated Blood Loss 100 ml # Bowel Movements 0 0 Exam Gen.: No acute distress pleasant HEENT: Normocephalic, atraumatic, gold dental fillings Heart: Irregular rate, no murmurs Lungs are clear anteriorly Abdomen: nondistended, dressing are clean today, no seepage Extremities: Swollen lower extremities, right extremity not moving, he is able to move the left lower extremity as well as Upper extremities. Swollen and edematous right leg at baseline swollen left leg mildly was worse from baseline Neurological: Alert and oriented, no focal deficits, noticeable hand tremor Psychiatric: No anxiety or agitation Neck: Positive for mild JVD IVs and Medications Medications Reviewed: Medications were reviewed in detail Lab and Diagnostics Result Diagram: 04/24/17 0602 04/24/17 06 X-Rays, CTs and MRIs CT Abdomen: Impression: Air fluid level in the cecum which is severely dilated and displaced into the midline. There is no small bowel obstruction. 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 Assessment & Plan #Cecal volvulus s/p R hemicolectomy, present on admission, active - CT consistent with cecal volvulus - He is hypercoagulated on arrival. Overnight he was given vitamin K 10 mg which brought it down to around 2. INR was doen to 1.55. PT went to OR on 04/22 PM, underwent R hemicolectomy - Surgery consulted -- Patient had a recent cardiac echo in October of this year that showed 60-65% ejection fraction mild aortic stenosis -- Postop day #2 -- 500 mL small bolus to see if his urine output would improve, discussed the possibility of need for administration of Lasix with staff, BNP is also ordered came back elevated -- 1 unit of platelets is ordered, the surgery was concerned about seepage and wound dressing on 04/23 -- INR dropped to 1.18 This a.m., patient's seepage is better controlled. -- We will restart Coumadin 04/24, enoxaparin treatment dose tomorrow a.m. -- 04/24 pain medications were reduced to no IV Dilaudid(patient is not taking it ), oxycodone increased to 5 mg every 4 hours when necessary Tremors, central chronic active: -- Medication Ativan was held on 04/23 overnight as patient had several pain medications on board -- Restarted at 0.25 mg tonight #Chronic atrial fibrillation/DVT, on Coumadin active - INT: 4.1 at admission - INR was 1.55 on 04/22, communicated this to Dr. Ogden, she agrees to take patient to the OR. -- For surgical procedures at high risk bleeding we have to wait 48 hours prior to starting bridging -- We will be starting Coumadin 04/24, aspirin today -- Start enoxaparin tomorrow a.m. #Chronic hypertension active --Continue metoprolol, patient is started on hydrochlorothiazide home medication -- Continue to hold triamterene #Chronic CAD: Chronic active --Continue home medications, may hold on the a.m. of surgery, the patient was given aspirin this a.m. at 3 -- Continue aspirin #UTI active present admission -- Chronic indwelling catheter, UA is positive urine cultures are pending -- He does not endorse any pain with urination he has a catheter no lower abdominal pain, will wait to treat based on the culture sensitivities -- Urine grew Escherichia coli, ESBL sensitive to ertapenem, imipenem, and gentamicin, nitrofurantoin. Urine analysis does show signs of infection with elevated white count, nitrites. Dr. Lugo is contacted, and it is consulted. Dr. Lugo has seen the patient and administered one time dose of phosphomycin. #Chronic gout -- Continue Home medication for now GI ppx: Pantoprazole To be admitted as inpatient due to complexity of medical condition that will require more than two days of hospital stay. Pain Evaluation: Adequate Pain Control VTE Prophylaxis: Sub-Q Heparin (Unfractionated) VTE Mechanical Devices: Intermittant Pneumatic CD Resuscitation Status: CPR: Attempt Resuscitation Time spent 25 minutes Елена Fu DO Apr 24, 2017 13:39
[2017-04-24] MEDS: LORazepam 0.5 mg Tablet PO SCH (23:18)
[2017-04-25] VITALS (7 sets, daily range): BP systolic 114–149; BP diastolic 58–96; PULSE 57–73; RESP 18–22; O2SAT 97–98
[2017-04-25] MEDS: 0.9% Sodium Chloride 1,000 ML IV SCH ×2 (01:55→11:55)
[2017-04-25 05:18] LABS: Mean Corpuscular Hemoglobin 30.5 pg (27.0-35.0); Mean Corpuscular Volume 92.9 fL (81-100)
[2017-04-25 06:05] LABS: INR 1.1 ratio
[2017-04-25] MEDS: 0.9% Sodium Chloride 250 ML IV SCH ×2 (08:05→17:29)
--- NOTE | 2017-04-25 09:45 | PCM.PHAPRO ---
Progress Acute lower abdominal pain WARFARIN MAINTENANCE DOSING INDICATION: CAD, CVA, DVT INR GOAL: 2-3 TODAY'S INR 1.1 Date Apr 25-Apr INR 1.18 1.10 INR change -0.08 Warf Dose 5mg 7.5 A/P: * WARFARIN 7.5MG TODAY (1.5 X USUAL DOSE OF 5MG) * STILL SEEING EFFECTS OF 10MG VITAMIN K GIVEN ON 04/22 PRIOR TO SURGERY Carrie Bass Pharm.D Apr 25, 2017 09:45
--- NOTE | 2017-04-25 10:37 | PROG NOTE ---
[address] [address] PROGRESS NOTE PATIENT: MITCHELL ROSENTHAL : 1935 MR#: [id number] ADMIT: 04/22/2017 JOB ID: [id number] DATE: 04/25/2017 SUBJECTIVE: The patient is seen in followup. He is doing well today. He started having bowel movements last night, had three soft bowel movements. He has no nausea. He is not complaining of any abdominal pain. OBJECTIVE: Temperature 36.9, pulse 57, blood pressure 115/58, saturation 98% on room air. In general, he is resting in bed in no acute distress. Chest is clear. Heart: Regular rate and rhythm. No murmurs. Abdomen is soft, nondistended. His incisions are clean with no erythema. Ovalle catheter has clear yellow urine. LABORATORIES: White count is 11.3, hematocrit 33.8, creatinine 0.76, albumin 2.7. ASSESSMENT AND PLAN: An 82-year-old man with cecal volvulus, postoperative day three status post right hemicolectomy with anastomosis. He is doing well with return of bowel function. His diet will be advanced. There is no sign of ongoing bleeding from his subcutaneous space. His dressing was changed. We will ask social work supervisor to touch base with him for plans for home as I think he may be clinically ready for discharge from a surgical standpoint as early as tomorrow.
[2017-04-25] MEDS: LORazepam 0.5 mg Tablet PO SCH (20:28)
--- NOTE | 2017-04-25 21:01 | PCM.PNMED ---
Subjective Date of Service Apr 25, 2017 Subjective Patient is seen and examined. He is feeling much better he has no pain. Says he had a large BM last night, is passing gas. wants to go home Exam Vital Signs Vital Sign - Last Date Time Temp Pulse Resp B/P Pulse Ox O2 Delivery O2 Flow Rate FiO2 04/25/17 09:30 36.9 57 22 115/58 98 Room Air 04/24/17 04:35 1.50 Intake and Output 04/24/17 04/24/17 04/25/17 Cumulative From/Thru 15:00 23:00 07:00 04/22/17 01:23 - 04/25/17 06:48 Intake Total 1236 ml 1060 ml 0 ml 8976 ml Output Total 500 ml 600 ml 2750 ml Balance 1236 ml 560 ml -600 ml 6226 ml Intake Oral 1060 ml 0 ml 1436 ml IV Total 1236 ml 6780 ml FFP 760 ml Output Urine Total 500 ml 600 ml 2650 ml Estimated Blood Loss 100 ml # Bowel Movements 0 3 3 Exam Gen.: No acute distress pleasant HEENT: Normocephalic, atraumatic, gold dental fillings Heart: Irregular rate, no murmurs Lungs are clear anteriorly Abdomen: nondistended, dressing are clean today, no seepage Extremities: Swollen lower extremities, right extremity not moving, he is able to move the left lower extremity as well as Upper extremities. Swollen and edematous right leg at baseline left leg Neurological: Alert and oriented, no focal deficits Psychiatric: No anxiety or agitation Neck: Neg for JVD IVs and Medications Medications Reviewed: Medications were reviewed in detail Lab and Diagnostics Result Diagram: 04/25/17 0435 04/25/17 0435 X-Rays, CTs and MRIs CT Abdomen: Impression: Air fluid level in the cecum which is severely dilated and displaced into the midline. There is no small bowel obstruction. 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 Assessment & Plan #Cecal volvulus s/p R hemicolectomy, present on admission, active - CT consistent with cecal volvulus - He is hypercoagulated on arrival. Overnight he was given vitamin K 10 mg which brought it down to around 2. INR was doen to 1.55. PT went to OR on 04/22 PM, underwent R hemicolectomy - Surgery consulted -- Patient had a recent cardiac echo in October of this year that showed 60-65% ejection fraction mild aortic stenosis -- Postop day #2 -- 500 mL small bolus to see if his urine output would improve, discussed the possibility of need for administration of Lasix with staff, BNP is also ordered came back elevated -- 1 unit of platelets is ordered, the surgery was concerned about seepage and wound dressing on 04/23 -- INR dropped to 1.18 This a.m., patient's seepage is better controlled. -- We will restart Coumadin 04/24, enoxaparin treatment dose tomorrow a.m. -- 04/24 pain medications were reduced to no IV Dilaudid(patient is not taking it ), oxycodone increased to 5 mg every 4 hours when necessary -- IV fluids are discontinued on 04/25 -- Surgery cleared him for d/c -- Will follow up with SW on HH needs, possible d/c tomorrow Tremors, central chronic active: -- Medication Ativan was held on 04/23 overnight as patient had several pain medications on board -- Restarted at 0.25 mg tonight, improved #Chronic atrial fibrillation/DVT, on Coumadin active - INT: 4.1 at admission - INR was 1.55 on 04/22, communicated this to Dr. Ogden, she agrees to take patient to the OR. -- For surgical procedures at high risk bleeding we have to wait 48 hours prior to starting bridging -- We will be starting Coumadin 04/24, aspirin today -- enoxaparin bridging is started #Chronic hypertension active --Continue metoprolol, patient is started on hydrochlorothiazide home medication -- Continue to hold triamterene #Chronic CAD: Chronic active --Continue home medications, may hold on the a.m. of surgery, the patient was given aspirin this a.m. at 3 -- Continue aspirin #UTI active present admission -- Chronic indwelling catheter, UA is positive urine cultures are pending -- He does not endorse any pain with urination he has a catheter no lower abdominal pain, will wait to treat based on the culture sensitivities -- Urine grew Escherichia coli, ESBL sensitive to ertapenem, imipenem, and gentamicin, nitrofurantoin. Urine analysis does show signs of infection with elevated white count, nitrites. Dr. Lugo is contacted, and it is consulted. Dr. Lugo has seen the patient and administered one time dose of phosphomycin. #Chronic gout -- Continue Home medication GI ppx: Pantoprazole To be admitted as inpatient due to complexity of medical condition that will require more than two days of hospital stay. Pain Evaluation: Adequate Pain Control VTE Prophylaxis: Sub-Q Heparin (Unfractionated) VTE Mechanical Devices: Intermittant Pneumatic CD Resuscitation Status: CPR: Attempt Resuscitation Time spent 25 minutes Елена Fu DO Apr 25, 2017 10:06
[2017-04-26 01:15] VITALS: BP 134/68; PULSE 63; RESP 18; O2SAT 98
[2017-04-26 05:28] VITALS: BP 148/56; PULSE 77; RESP 18; O2SAT 96
[2017-04-26 05:57] VITALS: PULSE 77
[2017-04-26 06:19] LABS: BASOPHILS % (AUTO) 0.3 % (0-3); MONOCYTES % (AUTO) 7.3 % (4-12); Mean Corpuscular Hemoglobin 30.1 pg (27.0-35.0); Mean Corpuscular Volume 93.4 fL (81-100); NEUTROPHILS % (AUTO) 84.9 % (40-74); Platelet Count 169 bil/L (150-400)
[2017-04-26] MEDS: 0.9% Sodium Chloride 250 ML IV SCH (07:52)
[2017-04-26] MEDS ORDERED: POLY17PO6 PO (08:10)
--- NOTE | 2017-04-26 09:16 | PROG NOTE ---
[address] [address] PROGRESS NOTE PATIENT: MITCHELL ROSENTHAL : 1935 MR#: [id number] ADMIT: 04/22/2017 JOB ID: [id number] DATE: 04/26/2017 SUBJECTIVE: The patient is seen in followup. He is doing well. He has very little abdominal pain. He is tolerating a diet and having bowel function. He is anxious to go home today. OBJECTIVE: Temperature 36.9, pulse 77, blood pressure 148/56, saturation 96% on room air. General: He is resting in bed in no acute distress. Abdomen is soft, nondistended. He has no tenderness. His midline wound is well approximated. There is scant amount of thin bloody drainage. LABORATORIES: White count is 12.2, hematocrit 35.1, creatinine 0.82. ASSESSMENT AND PLAN: An 82-year-old man with cecal volvulus status post right hemicolectomy with anastomosis. He is doing well clinically. I think he can be safely discharged to home today. His madhavi and abdominal wall sutures in his wound will be removed in approximately one week in the surgery clinic. He should follow up on Thursday or sometime around then. Recommend just keeping the wound covered with dry gauze daily until there is no additional drainage.
[2017-04-26 09:44] LABS: INR 1.29 ratio
[2017-04-26] MEDS ORDERED: LORazepam 0.5 mg Tablet PO PRN (09:50)
[2017-04-26] MEDS ORDERED: LOV120 SUBQ (09:56)
[2017-04-26] MEDS ORDERED: 0.9% Sodium Chloride 250 ML IV ONE (10:40)
[2017-04-26 10:47] VITALS: BP 138/74; PULSE 61; RESP 20; O2SAT 98
--- NOTE | 2017-04-26 10:54 | PCM.DIMED ---
Discharge Instructions Date of Service Apr 26, 2017 Dates of Hospitalization Apr 22, 2017 at 04:07 Discharge Diagnosis Discharge Diagnosis cecal volvulue status post R hemicolectomy, Supratherapeutic INR, Chronic afib, CAD, HTN, UTI Medication Instructions Additional med instructions Enoxaparin 120 mg SQ BID until INR is 1.6. Diet Discharge Diet: Heart Healthy Activity Discharge Activity: Home Health Phyical Therapy Call your provider Call your provider for: Fever or Chills, Shortness of breath, Bleeding, Chest pain, Vomitting, Excessive diarrhea, Weakness (unilateral), Other Patient Instructions Patient Instructions Please keep the wound dry and clean, if you notice increased bleeding from the site, call PCP or come to ER Enoxaparin is prescribed until your INR reaches a reasonable level, your PCP/ coumadin clinic will follow this. Soft diet is recommended. Surgery Recommendation: His madhavi and abdominal wall sutures in his wound will be removed in approximately one week in the surgery clinic. He should follow up on Thursday or sometime around then. Recommend just keeping the wound covered with dry gauze daily until there is no additional drainage. Follow-up plan F/U with Dr. Dean Fu/Dr. Ogden on 05/01/17 for staple removal etc. F/U with PCP or coumadin clinic for an INR check every 2 days, INR to be drawn by DAMIEN RN. F/U INR Q48H until INR=1.6 F/U CBC/BMP in one week prior to appr with DR. Ogden's office F/U with PCP in 2 weeks Елена Fu DO Apr 26, 2017 10:54
[2017-04-26] MEDS ORDERED: Warfarin 5 MG, Warfarin 2.5 MG PO ONE ×2 (17:00)
--- NOTE | 2017-04-26 23:48 | PCM.DC.MED ---
Discharge Summary Date of Service Apr 26, 2017 Dates of Hospitalization Date of Hospital Admission Apr 22, 2017 at 04:07 Date of Discharge: Apr 25, 2017 Providers: Admitting Physician: Jm White MD Primary Care Physician: Joselo Schmitt MD Attending Physician: Елена Gautam DO Diagnosis at Time of Discharge Diagnosis at Time of Discharge cecal volvulue status post R hemicolectomy, Supratherapeutic INR, Chronic afib, CAD, HTN, UTI Consultations Gen. surgery Procedures XRay, CTs & MRIs CT Abdomen: Impression: Air fluid level in the cecum which is severely dilated and displaced into the midline. There is no small bowel obstruction. 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 Pain the pain was diffuse on presentation but now is localized to lower quadrants and is markedly decreased per patient. Upon straining for a bowel movement yesterday he had sudden onset abdominal pain which was unrelenting. He has never experienced this before and typically has bowel movements daily without hematochezia or melena. He reports chronic shortness of breath. The pt denies chest pain and any other symptoms at this time. He is currently resting comfortable. Labs in the ER were remarkable for mild leukocytosis and elevated INR of 4.11. His CT scan that was consistent with cecal volvulus. Hospital Course #Cecal volvulus s/p R hemicolectomy, present on admission, active - CT consistent with cecal volvulus - He is hypercoagulated on arrival. Overnight he was given vitamin K 10 mg which brought it down to around 2. INR was doen to 1.55. PT went to OR on 04/22 PM, underwent R hemicolectomy - Surgery consulted -- Patient had a recent cardiac echo in October of this year that showed 60-65% ejection fraction mild aortic stenosis -- Postop day #2 -- 500 mL small bolus to see if his urine output would improve, discussed the possibility of need for administration of Lasix with staff, BNP is also ordered came back elevated -- 1 unit of platelets is ordered, the surgery was concerned about seepage and wound dressing on 7/13 -- INR dropped to 1.18 This a.m., patient's seepage is better controlled. -- We will restart Coumadin 04/24, enoxaparin treatment dose tomorrow a.m. -- 04/24 pain medications were reduced to no IV Dilaudid(patient is not taking it ), oxycodone increased to 5 mg every 4 hours when necessary -- IV fluids are discontinued on 04/25 -- Surgery cleared him for d/c -- 04/26 250 cc bolus is given, 0.5 mg ativan for the ambulance ride -- Patient is only taking his home dose of oxycodone this and a prescription was given a discharge -- Patient is having regular bowel movements tolerating soft diet at the time of discharge Tremors, central chronic active: -- Medication Ativan was held on 04/23 overnight as patient had several pain medications on board -- Restarted at 0.25 mg tonight, improved -- We will resume home dose at discharge #Chronic atrial fibrillation/DVT, on Coumadin active - INT: 4.1 at admission - INR was 1.55 on 04/22, communicated this to Dr. Ogden, she agrees to take patient to the OR. -- For surgical procedures at high risk bleeding we have to wait 48 hours prior to starting bridging -- We will be starting Coumadin 04/24, aspirin today -- enoxaparin bridging is started, will write for enoxaparin 120 mg twice a day for up to 5 days -- may continue home coumadin dose, follow-up INR checked is given #Chronic hypertension active --Continue metoprolol, patient is started on hydrochlorothiazide home medication --restart triamterene at discharge #Chronic CAD: Chronic active --Continue home medications, may hold on the a.m. of surgery, the patient was given aspirin this a.m. at 3 -- Continue aspirin #UTI active present admission -- Chronic indwelling catheter, UA is positive urine cultures are pending -- He does not endorse any pain with urination he has a catheter no lower abdominal pain, will wait to treat based on the culture sensitivities -- Urine grew Escherichia coli, ESBL sensitive to ertapenem, imipenem, and gentamicin, nitrofurantoin. Urine analysis does show signs of infection with elevated white count, nitrites. Dr. Lugo is contacted, and it is consulted. Dr. Lugo has seen the patient and administered one time dose of phosphomycin. #Chronic gout -- Continue Home medication GI ppx: Pantoprazole To be admitted as inpatient due to complexity of medical condition that will require more than two days of hospital stay. Exam Vital Signs (Last) Date Time Temp Pulse Resp B/P Pulse Ox O2 Delivery O2 Flow Rate FiO2 04/26/17 10:47 36.4 61 20 138/74 98 Room Air 04/24/17 04:35 1.50 Exam Gen.: No acute distress pleasant HEENT: Normocephalic, atraumatic, gold dental fillings Heart: Irregular rate, no murmurs Lungs are clear anteriorly Abdomen: nondistended, dressing are clean today, no seepage, minimal pain Extremities: Swollen lower extremities, right extremity not moving, he is able to move the left lower extremity as well as Upper extremities. Swollen and edematous right leg (base line), at baseline left leg Neurological: Alert and oriented, no focal deficits Psychiatric: No anxiety or agitation Neck: Neg for JVD Test 04/22/17 02:20 04/22/17 03:40 04/22/17 18:21 04/23/17 06:13 Lactic Acid Level 1.3mmol/L (0.4-2.0) Magnesium Level 1.7mg/dL (1.6-2.6) Lipase 10U/L (13-60) Urine Color Yellow (YELLOW) Urine Appearance Cloudy (CLEAR,HAZY) Urine pH 5.0 (5.0-8.0) Urine Specific [place] 1.030 (1.003-1.035) Urine Protein >300mg/dL (NEG,TRACE) Urine Glucose (UA) Negativemg/dL (NEGATIVE) Urine Ketones Tracemg/dL (NEGATIVE) Urine Occult Blood Small (NEGATIVE) Urine Nitrite Positive (NEGATIVE) Urine Bilirubin Negative (NEGATIVE) Urine Urobilinogen Normalmg/dL (NORMAL) Urine Leukocyte Esterase Trace (NEGATIVE) Urine RBC 0-2/hpf (0-2) Urine WBC >50/hpf (0-5) Urine Epithelial Cells Occasional/hpf (NONE-MOD) Urine Crystals None seen (NONE SEEN) Urine Bacteria Many/hpf (NONE-FEW) Urine Hyaline Casts Occasional/lpf (NONE) Urine Granular Casts None seen (NONE SEEN) Urine Waxy Casts None seen (NONE SEEN) Urine Red Blood Cell Casts None seen (NONE SEEN) Urine White Blood Cell Casts None seen (NONE SEEN) Urine Mucus None seen (None Seen) Urine Trichomonas None seen (NONE SEEN) Urine Yeast None (NONE SEEN) Urinalysis Comment None Urine Culture Reflexed Indicated Activated Partial Thromboplast Time 27.8sec (22.8-33.0) Hemoglobin A1c 5.7% (4.8-5.6) Pro-B-Type Natriuretic Peptide 4431pg/mL (0-486) Test 04/25/17 04:35 04/26/17 06:00 04/26/17 08:53 Total Bilirubin 1.1mg/dL (0.0-1.2) Aspartate Amino Transf (AST/SGOT) 15U/L (0-50) Alanine Aminotransferase (ALT/SGPT) 5U/L (0-44) Alkaline Phosphatase 46U/L (25-160) Total Protein 5.5g/dL (6.4-8.4) Albumin 2.7g/dL (3.4-5.0) White Blood Count 12.2th/mm3 (3.8-10.1) Red Blood Count 3.76mil/mm3 (4.40-5.80) Hemoglobin 11.3g/dL (13.8-17.2) Hematocrit 35.1% (41.0-50.0) Mean Corpuscular Volume 93.4fL (81-100) Mean Corpuscular Hemoglobin 30.1pg (27.0-35.0) Mean Corpuscular Hemoglobin Concent 32.2% (32.0-37.0) Red Cell Distribution Width 14.1% (12.3-15.4) Platelet Count 169bil/L (150-400) Neutrophils (%) (Auto) 84.9% (40-74) Lymphocytes (%) (Auto) 4.2% (14-46) Monocytes (%) (Auto) 7.3% (4-12) Eosinophils (%) (Auto) 3.0% (0-5) Basophils (%) (Auto) 0.3% (0-3) Sodium Level 136mEq/L (134-144) Potassium Level 4.0mEq/L (3.5-5.2) Chloride Level 100mEq/L (97-108) Carbon Dioxide Level 23mmol/L (18-29) Blood Urea Nitrogen 21mg/dL (8-27) Creatinine 0.82mg/dL (0.76-1.27) Estimat Glomerular Filtration Rate 96mL/min (>59) Glucose Level 104mg/dL (60-99) Calcium Level 8.9mg/dL (8.5-10.1) Prothrombin Time 13.9sec (8.1-12.5) Prothromb Time International Ratio 1.29ratio Discharge Medications Discharge Medications Allopurinol (Allopurinol) 100 Mg Tablet 100 MG PO QAM (Reported) Aspirin (Aspirin) 81 Mg Tablet 81 MG PO DAILY (Reported) Cholecalciferol (Vitamin D3) (Vitamin D3) 1,000 Unit Tab.chew 1,000 UNIT PO Noon (Reported) Cyanocobalamin (Vitamin B-12) (Vitamin B-12) 1,000 Mcg Tablet 1,000 MCG PO HS ( Reported) Enoxaparin (Lovenox) 120 Mg/0.8 Ml Syringe 120 MG SUBQ Q12 Prescribed by: ЕЛЕНА GAUTAM DO Metoprolol Tartrate (Metoprolol Tartrate) 25 Mg Tablet 12.5 MG PO BID Prescribed by: WILLAM OCHOA MD Simvastatin (Simvastatin) 40 Mg Tablet 20 MG PO HS (Reported) Triamterene/HCTZ 75-50 mg (Triamterene/HCTZ 75-50 mg) 1 Each Tablet 1 EACH PO QAM (Reported) Warfarin Sodium (Warfarin Sodium) 2.5 Mg Tablet 2.5 MG PO , thu. (Reported) Warfarin Sodium (Warfarin Sodium) 5 Mg Tablet 5 MG PO M,W, Th, Sa, Parra (Reported ) As needed Docusate Sodium (Colace) 100 Mg Capsule 100 MG PO DAILY PRN PRN For Constipation (Reported) Lorazepam (Ativan) 0.5 Mg Tablet 0.5 MG PO HS PRN PRN For Anxiety (Reported) Nitroglycerin SL (Nitrostat) 0.4 Mg Tab.subl 0.4 MG SL Q5MIN PRN PRN For Chest Pain Prescribed by: WILLAM OCHOA MD Nystatin (Nystatin) 15 Gm Powder 1 APPLIC EXTERNAL BID PRN PRN rash (Reported) Sennosides (Senna) 8.6 Mg Tablet 8.6 MG PO DAILY PRN PRN For Constipation ( Reported) oxyCODONE-Acetaminophen 5-325 mg (oxyCODONE-Acetaminophen 5-325 mg) 1 Each Tablet 1 TAB PO BID PRN PRN For Pain (Reported) oxyCODONE-Acetaminophen 5-325 mg (oxyCODONE-Acetaminophen 5-325 mg) 1 Each Tablet 0.5-1 TAB PO noon PRN PRN For Pain (Reported) Additional med instructions Enoxaparin 120 mg SQ BID until INR is 1.6. Followup Plan Follow-up plan F/U with Dr. Dean Gautam/Dr. Ogden on 05/01/17 for staple removal etc. F/U with PCP or coumadin clinic for an INR check every 2 days, INR to be drawn by RN. F/U INR Q48H until INR=1.6 F/U CBC/BMP in one week prior to appr with DR. Ogden's office F/U with PCP in 2 weeks Discharge Diet: Heart Healthy Discharge Activity: Home Health Phyical Therapy Patient Instructions Please keep the wound dry and clean, if you notice increased bleeding from the site, call PCP or come to ER Enoxaparin is prescribed until your INR reaches a reasonable level, your PCP/ coumadin clinic will follow this. Soft diet is recommended. Surgery Recommendation: His madhavi and abdominal wall sutures in his wound will be removed in approximately one week in the surgery clinic. He should follow up on Thursday or sometime around then. Recommend just keeping the wound covered with dry gauze daily until there is no additional drainage. Time spent 35 min Елена Gautam DO Apr 26, 2017 10:57
[2017-04-27] MEDS ORDERED: SIMV20TA4 PO (17:17)
--- NOTE | 2017-04-30 09:17 | PATH ---
SURGICAL PATHOLOGY Attending Physician:Melanie Ogden MD CASE STATUS: Signed Out PATIENT NAME: MITCHELL ROSENTHAL PID: [id number] : 1935 DATE COLLECTED:04/22/2017 00:00 SPECIMEN: 1: Colon, Biopsy 2: Colon, Segment Resection, Non-Tumor CLINICAL HISTORY: CECAL VOLVULUS 1). MESENTERIC IMPLANT OF CECUM 2). TERMINAL ILEUM AND CECUM FINAL DIAGNOSIS: 1.MESENTERIC IMPLANT OF CECUM, EXCISION: FRAGMENT OF FIBROADIPOSE TISSUE WITH HYALINIZED AND CALCIFIED GRANULOMA. NEGATIVE FOR NEOPLASM (CONFIRMED BY IMMUNOHISTOCHEMICAL STAINS) See Comment. 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 ONE PERIAPPENDICEAL LYMPH NODE NEGATIVE FOR NEOPLASM. b) MULTIPLE TUBULAR ADENOMAS (4) INVOLVING CECUM AND ASCENDING COLON. c) FOCAL AREA OF ULCER AND MUCOSAL AND SUBMUCOSAL CONGESTION INVOLVING CECUM AND ASCENDING COLON. d) MELANOSIS COLI. e) MULTIPLE HYALINIZED AND CALCIFIED MESENTERIC GRANULOMAS. See comment. f) PROXIMAL AND DISTAL RESSECTION MARGINS ARE VIABLE, NEGATIVE FOR NEOPLASM. g) TWENTY LYMPH NODES NEGATIVE FOR NEOPLASM. SUMMARY CANCER DATA: Site: Appendix tip. 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 Margins: Proximal and distal margin is negative for neoplasm. Lymphovascular invasion; Not identified. Perineural invasion: Not identified. Number of lymph nodes examined: one periappendiceal lymph node and twenty colonic lymph nodes Number of lymph nodes involved: 0/21 Pathologic staging (TNM): AJCC, 7th Edition, 2010. Primary tumor: pT1a Regional lymph nodes: pN0 Ancillary studies: Ki67 labelling index: <2% ICD10 K56.2 NOTE: Dr. Melanie Samano was given the preliminary diagnosis at 9:16 a.m. on 04/29/2017 by telephone. As per routine manager quality systems sections of the case were also reviewed by Dr. Tsia and Dr. Mendoza, who agree with the above interpretation. GROSS DESCRIPTION: The specimens are received in formalin, labeled with the patient's name, and sublabeled as the following: (1) mesenteric implant of cecum; (2) terminal ileum & cecum. (1) The specimen consists of a piece of vital-yellow fibromembranous tissue (1.2 x 0.5 x 0.2 cm) with a focally bright white surface. Section code: (1A) tissue, serially sectioned. Specimen entirely submitted. (2) The specimen is received opened and consists of terminal ileum (length-5.2 cm, proximal diameter-2.0 cm), ileocecal valve, cecum and ascending colon (length-20.5 cm, distal diameter-4.5 cm), attached appendix (length-11.2 cm, diameter - 0.4 cm) and attached adipose tissue (up to 5.5 cm in depth). The resection margins are received stapled. The terminal ileum has vital mucosa with normal folds. The cecum and ascending colon have vital focally congested mucosa with normal folds with intermittent flat areas and thin boggs. Multiple vital rubbery well circumscribed sessile polyps (0.5 x 0.3 x 0.2 cm-0.6 x 0.6 x 0.3 cm) are identified throughout the cecum and the ascending colon. The polyps are 10.5 cm from the proximal and 14.7 cm from the distal resection margins. No nodules, masses, lesions, perforations or diverticuli are identified. The appendix is unremarkable. Multiple possible lymph nodes (0.5 x 0.3 x 0.2 cm - 1.6 by 01 0.3 x 0.7 cm) are identified. Ink code: black-resection margin. Section code: (2A) proximal resection margin, longitudinally sectioned, senior patient account representative; (2B) distal resection margin, longitudinally sectioned, senior patient account representative; (2C) ileocecal valve, perpendicularly sectioned, senior patient account representative; (2D, 2E) cecal polyps, 2E is bisected; (2F-2I) ascending colon polyps, bisected (2I is intact), submitted proximal to distal; (2J-2L) cecum and ascending colon, serially sectioned and submitted proximal to distal, senior patient account representative; (2M) appendix, senior patient account representative; (2N) multiple intact lymph nodes; (2O-2Q) one lymph node in each cassette, serially sectioned. 04/23/17 JM Additional sections: (2R-2T) multiple intact lymph nodes. 04/29/17 MICRO DESCRIPTION: Part 1: Mesenteric implant of cecum: Immunohistochemical stains were performed and demonstrate that the epithelioid cells are positive for CD68 and are negative for BETSY and PAX-8 (non-specific background staining, (PAX-8 was repeated) supporting the histiocytic nature of the cells. Part 2: Terminal ileum and cecum: Immunohistochemical stains were performed to evaluate the neoplastic cells. The neoplastic cells are positive for BETSY (diffuse), synaptophysin (diffuse) and are negative for CD10, chromogranin, and PAX-8, supporting the neuroendocrine differentiation. The Ki-67 immunohistochemistry demonstrates that the Ki-67 proliferative index is less than 2%. The control stains show appropriate reactivity. *This test was developed and its performance characteristics determined by [facility]. It has not been cleared or approved by the U.S. Food and Drug Administration. The FDA has determined that such clearance or approval is not necessary. This test is used for clinical purposes. It should not be regarded as investigational or for research.* ICD-9 CODES: CPT CODES: 1: 66720, 52786, 25195, 15343, 37832, 09864 2: 85124, 89638, 59369, 26895, 24898, 92711, 68677, 19349, 65820 PROCEDURE/ADDENDA: Addendum SPI Addendum Diagnosis Addendum is issued to report the results of AFB and GMS special stains (on block 1A and 2 S) Addendum Comment Multiple granulomas identified in specimen designated as part 1) mesenteric implant of cecum and part 2) terminal ileum and cecum. The granulomas are negative for fungal and acid-fast mycobacteria by AFB and GMS special stains. The control stains show appropriate reactivity. Electronically Signed Out Anatoly Livingston MD Electronically Signed Out Anatoly Livingston MD [facility] [address], [place] [address] Technical component performed at [facility], [address], [place], [address]
== END 2017-04-26 12:40 | disposition home health service (06) | DRG 330 ==
LOC: SED 01:17 → MPC 04:07
PROVIDERS: ADMIT Internal Medicine; ATTEND Internal Medicine
PROC: 30233K1 Transfusion of Nonautologous Frozen Plasma into Peripheral Vein, Percutaneous Approach (ICD-10-PCS; 2017-04-22)
PROC: 0DTF0ZZ Resection of Right Large Intestine, Open Approach (ICD-10-PCS; principal; 2017-04-22 14:00)
PROC: 30233K1 Transfusion of Nonautologous Frozen Plasma into Peripheral Vein, Percutaneous Approach (ICD-10-PCS; 2017-04-23)
DX: K56.2 Volvulus (principal); N39.0 Urinary tract infection, site not specified; I82.509 Chronic embolism and thrombosis of unspecified deep veins of unspecified lower extremity; I69.351 Hemiplegia and hemiparesis following cerebral infarction affecting right dominant side; Z79.01 Long term (current) use of anticoagulants; I10 Essential (primary) hypertension; Z74.01 Bed confinement status; I48.2 Chronic atrial fibrillation; M1A.9XX0 Chronic gout, unspecified, without tophus (tophi); I69.398 Other sequelae of cerebral infarction; I25.10 Atherosclerotic heart disease of native coronary artery without angina pectoris; B96.20 Unspecified Escherichia coli [E. coli] as the cause of diseases classified elsewhere; R79.1 Abnormal coagulation profile; N31.9 Neuromuscular dysfunction of bladder, unspecified; G25.2 Other specified forms of tremor

== ENCOUNTER 2017-04-27 13:51 | Observation (INO) | payer MEDICARE, OTHER ==
[~2017-04-27] VITALS: Ht 193 cm; Wt 109.9 kg
[~2017-04-27 13:51] MED LIST changes: +LORA-302 PO; +LOV120 SUBQ
[2017-04-27 13:55] VITALS: BP 146/63; PULSE 83; RESP 28; O2SAT 100
[2017-04-27 14:45] LABS: BASOPHILS % (AUTO) 0.4 % (0-3); EOSINOPHILS % (AUTO) 3.6 % (0-5); MONOCYTES % (AUTO) 10.3 % (4-12); Mean Corpuscular Hemoglobin 30.5 pg (27.0-35.0); Mean Corpuscular Volume 93.8 fL (81-100); NEUTROPHILS % (AUTO) 77.5 % (40-74); Platelet Count 183 bil/L (150-400)
[2017-04-27 14:48] LABS: INR 1.58 ratio
[2017-04-27 15:17] VITALS: BP 130/61; PULSE 77; RESP 19; O2SAT 100
--- NOTE | 2017-04-27 15:24 | ED.REPORT ---
HPI-Abd Pain M 40 and Over Date of Service Apr 27, 2017 ED Provider: Aguilar Castillo MD Pt is an 82 y/o male anticoagulated on Warfarin w/ a hx of HTN, A-fib, CAD, B- cell lymphoma, presenting to the ED with his c/o post-surgical bleeding. The patient was recently admitted to [facility] from April 22- for abdominal pain and CT scan showed a cecal volvulus. He then had a right hemicolectomy with primary hand-sewn anastomosis performed on March [address] Ogden. Since the patient's discharge yesterday, he and his have noticed active bleeding/ oozing from the middle of the surgical incision causing him to bleed through about 5 wads of dressings. He has been using Lovenox shots as well as his regular Warfarin. Pt denies lightheadedness, dizziness, any other symptoms. Nursing Notes Stated Complaint: ABDOMINAL BLEEDING/POST OP Chief Complaint: Male Abdominal Pain Nursing Notes Reviewed: Yes Allergies: Coded Allergies: ciprofloxacin (Verified Allergy, Unknown, rash, 04/27/17) rofecoxib (Verified Adverse Reaction, Mild, It just didn't work, 04/27/17) Scheduled Allopurinol (Allopurinol) 100 Mg Tablet 100 MG PO QAM Aspirin (Aspirin) 81 Mg Tablet 81 MG PO DAILY Cholecalciferol (Vitamin D3) (Vitamin D3) 1,000 Unit Tab.chew 1,000 UNIT PO Noon Cyanocobalamin (Vitamin B-12) (Vitamin B-12) 1,000 Mcg Tablet 1,000 MCG PO HS Metoprolol Tartrate (Metoprolol Tartrate) 25 Mg Tablet 12.5 MG PO BID Simvastatin (Simvastatin) 20 Mg Tablet 20 MG PO HS Triamterene/HCTZ 75-50 mg (Triamterene/HCTZ 75-50 mg) 1 Each Tablet 1 EACH PO QAM Scheduled PRN Docusate Sodium (Colace) 100 Mg Capsule 100 MG PO DAILY PRN PRN For Constipation Lorazepam (Ativan) 0.5 Mg Tablet 0.5 MG PO HS PRN PRN For Anxiety Nitroglycerin SL (Nitrostat) 0.4 Mg Tab.subl 0.4 MG SL Q5MIN PRN PRN For Chest Pain Nystatin (Nystatin) 15 Gm Powder 1 APPLIC EXTERNAL BID PRN PRN rash Sennosides (Senna) 8.6 Mg Tablet 8.6 MG PO DAILY PRN PRN For Constipation oxyCODONE-Acetaminophen 5-325 mg (oxyCODONE-Acetaminophen 5-325 mg) 1 Each Tablet 1 TAB PO BID PRN PRN For Pain oxyCODONE-Acetaminophen 5-325 mg (oxyCODONE-Acetaminophen 5-325 mg) 1 Each Tablet 0.5-1 TAB PO noon PRN PRN For Pain General Time Seen by MD: 15:21 Chief Complaint Other (post surg bld) Hx Obtained From: Patient Arrived By: Walk-in Sudden in Onset?: No Onset Occurred: Yesterday Symptom Duration: Since onset Progression since Onset: Constant Severity: Current: No pain currently Severity: Maximum: No pain Recent Healthcare: Recent hospitalization, Previous surgery Similar Sx Previous: No Past Medical History Past Medical History Bedridden since stroke in 2010 1. Coronary artery disease. He had a cath back in early 1999 that showed mild multivessel disease with an EF of 60%. 2. History of B-cell lymphoma 3. He has had bilateral kidney cysts which have been removed. 4. osteoarthritis 5. 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 6. Colon polyps. 7. Atrial fibrillation. 8. Hypertension. 9. Gout 10. 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 Hematologic: Reports Bleeding Neurologic: Denies: Dizziness, Lightheaded Physical Exam Initial Vital Signs Vital Signs (First) Date Time Temp Pulse Resp B/P Pulse Ox O2 Delivery O2 Flow Rate FiO2 04/27/17 13:55 36.6 83 28 146/63 100 Room Air Initial VS: Reviewed, Vital signs normal Head / Eyes: Atraumatic, Normocephalic, PERRL ENT: Mucous membranes moist, Conjunctiva normal, No scleral icterus Neck: Supple, Full range of motion Extremities: Vascular intact, Neuro intact, No swelling Skin: Warm, Dry, No cyanosis Neurologic: Alert, Oriented, Nonfocal Psychiatric: Mood/affect normal, Behavior normal, Normal thought content General/Constitutional: Awake, Alert, No acute distress, Cooperative, Not toxic appearing Respiratory / Chest: Breath sounds NL, Breath sounds = bilat, No respiratory distress, No rales, No rhonchi, No wheezing Cardiovascular: Heart rate NL, Regular rhythm, Heart sounds NL, No murmurs Abdomen: Soft, Non-tender, No guarding, No rebound, No distention 10 cm midline verticle incision with sutures in place. Blood is actively oozing from middle of the wound. Interpretation & Diagnostics Lab Results Interpretation Result Diagram: 04/27/17 1409 04/27/17 1409 Test 04/27/17 14:09 White Blood Count 9.4th/mm3 (3.8-10.1) Red Blood Count 3.70mil/mm3 (4.40-5.80) Hemoglobin 11.3g/dL (13.8-17.2) Hematocrit 34.7% (41.0-50.0) Mean Corpuscular Volume 93.8fL (81-100) Mean Corpuscular Hemoglobin 30.5pg (27.0-35.0) Mean Corpuscular Hemoglobin Concent 32.6% (32.0-37.0) Red Cell Distribution Width 14.4% (12.3-15.4) Platelet Count 183bil/L (150-400) Neutrophils (%) (Auto) 77.5% (40-74) Lymphocytes (%) (Auto) 7.7% (14-46) Monocytes (%) (Auto) 10.3% (4-12) Eosinophils (%) (Auto) 3.6% (0-5) Basophils (%) (Auto) 0.4% (0-3) Hold Purple Top Tube Received (Received) Prothrombin Time 17.1sec (8.1-12.5) Prothromb Time International Ratio 1.58ratio Hold Blue Top Tube Received (Received) Sodium Level 135mEq/L (134-144) Potassium Level 4.0mEq/L (3.5-5.2) Chloride Level 98mEq/L (97-108) Carbon Dioxide Level 26mmol/L (18-29) Blood Urea Nitrogen 21mg/dL (8-27) Creatinine 0.82mg/dL (0.76-1.27) Estimat Glomerular Filtration Rate 96mL/min (>59) Glucose Level 105mg/dL (60-99) Calcium Level 9.3mg/dL (8.5-10.1) Total Bilirubin 1.1mg/dL (0.0-1.2) Aspartate Amino Transf (AST/SGOT) 18U/L (0-50) Alanine Aminotransferase (ALT/SGPT) 8U/L (0-44) Alkaline Phosphatase 53U/L (25-160) Total Protein 5.9g/dL (6.4-8.4) Albumin 2.9g/dL (3.4-5.0) Hold Gilliam Top Tube Received (Received) Re-Eval/Medical Decision Med Decision/Clinical Course 82-year-old male who is 5 days status post hemicolectomy for cecal volvulus presenting with bleeding from his abdominal incision site. He is on Lovenox and Coumadin. General surgery Dr. kingsley was consulted and recommended he be admitted for observation. We will hold anticoagulants. Time of Eval: 16:01 Re-Evaluation/Progress Note: Pt rechecked. Informed pt of need for admission. Pt understands and agrees with plan for admission. All questions addressed. Consultation : Referral / Consult Name: Jaiden Kingsley MD Call Returned at: 15:37 Aircraft Launch And Recovery Technician: Will see patient, Agrees with eval, Agrees with plan Note: Will evaluate in ED. 16:00 - after evaluation. Accepts admit with plan to observe and hold Warfarin Counseled Regarding: Diagnosis, Lab results, Need for admission Discharge & Departure Primary Impression: Abdominal wall hematoma Encounter type: initial encounter Qualified Code: S30.1XXA - Contusion of abdominal wall, initial encounter Additional Impression: Postoperative bleeding from incision Disposition: ADMITTED TO HOSPITAL Vital Signs - All Vital Signs Date Time Temp Pulse Resp B/P Pulse Ox O2 Delivery O2 Flow Rate FiO2 04/27/17 15:17 37.1 77 19 130/61 100 Room Air 04/27/17 13:55 36.6 83 28 146/63 100 Room Air )( All Prior VS Reviewed: Yes Condition: Stable Referrals: Joselo Schmitt MD (PCP) Melanie Ogden MD Attestation Portions of this note were transcribed by Oz Sorensen. I, Dr. Castillo personally performed the history, physical exam and medical decision-making; I reviewed and confirmed the accuracy of the information in the transcribed note. Signed by Aamir Santos, 04/27/17 - 1600 copies to: Joselo Schmitt MD; Melanie Ogden MD, Ben M MD Apr 27, 2017 15:24 OZ SORENSEN Apr 27, 2017 15:32
[2017-04-27] MEDS ORDERED: Ondansetron 2 mg/mL 2 mL Inj IVPUSH PRN ×2 (16:05→16:10)
[2017-04-27] MEDS ORDERED: Alum-Mag Hydrox-Simeth 30 mL Suspension PO PRN (16:05)
[2017-04-27] MEDS ORDERED: Nystatin 100,000 Unit/Gm 15 Gm Powder TOPICAL PRN (16:10)
[2017-04-27] MEDS ORDERED: LORazepam 0.5 mg Tablet PO PRN (16:10)
[2017-04-27] MEDS ORDERED: oxyCODONE-Acetamin 5-325 mg Tablet PO PRN ×2 (16:10)
--- NOTE | 2017-04-27 16:41 | HP ---
[address] [address] HISTORY AND PHYSICAL PATIENT: MITCHELL ROSENTHAL : 1935 MR#: [id number] ADMIT: 04/27/2017 JOB ID: [id number] DATE: 04/27/2017 CHIEF COMPLAINT/IDENTIFICATION: An 82-year-old man with midline wound bleeding, post discharge from the hospital. HISTORY OF PRESENT ILLNESS: The patient recently underwent emergency right hemicolectomy for cecal volvulus. This surgery was performed seven days ago. He did well, was discharged from the hospital yesterday on Lovenox and warfarin, being bridged back onto his warfarin that he takes for a distant history of DVT, atrial fibrillation, and history of a history of a CVA three years ago. Since he has been home, his is continuing to change the pad on his midline incision and it continues to bleed. She presents to the emergency department with concerns about ongoing bleeding. PAST MEDICAL HISTORY/MEDICATIONS/SOCIAL HISTORY/FAMILY HISTORY: Unchanged from recent admission history and physical. REVIEW OF SYSTEMS: Unchanged from recent admission history and physical. PHYSICAL EXAMINATION: A pleasant man in no acute distress. Temperature is 37.1, blood pressure is within normal limits. His pulse is in the 70s and 80s. His respiratory rate is 19 and his oxygen saturation is 100% on room air. Heart and lung examination are unchanged from recent admission. His midline incision has multiple dressings over it and we have taken these down. He is having diffuse oozing from his midline incision. LABORATORY DATA: His hematocrit is 34.7, compared to 35 on discharge yesterday. His INR is 1.58 compared to 1.29 on discharge yesterday. White count is 9.4, compared to 12.2 on discharge yesterday. Chemistries are within normal limits. Glucose is 105, his albumin is 2.9. IMAGING: There is no imaging. IMPRESSION AND PLAN: Postoperative bleeding along the midline incision. This was a problem during his recent hospitalization. I discussed the case with Dr. Ogden. At this point, we will admit him to the hospital overnight and will continue him on all of his outpatient medications except for the Lovenox and the Coumadin. I will recheck his INR and CBC and his hematocrit in the morning. Hopefully by just holding the Lovenox, the bleeding will stop. If it continues to be a problem tomorrow, we will open up his wound, wash it out and look for a source of bleeding either at the bedside or in the OR.
[2017-04-27] MEDS ORDERED: SIMV20TA4 PO (17:17)
[2017-04-27 17:24] VITALS: BP 148/91; PULSE 84; RESP 24; O2SAT 97
[2017-04-27 17:30] VITALS: BP 170/81; PULSE 84; RESP 18; O2SAT 98
--- NOTE | 2017-04-27 19:17 | NUR ---
Admit patient received to room 1004 from Er for admission related to post surgical bleed. Patient discharged home yesterday s/p right hemicolectomy. Patient with midline incision that has constant ooze and right sided hematoma , lg amount bruising and firmness noted. Dressing changed which was saturated . Patient rated pain 3/10 to upper chest//incision area. Patient to be monitored overnight and reassessed in am by surgery regarding need for surgery . Patient is bedridden at home and cared for by his who is very attentive. Patient with lower extremity edema, no pressure ulcers noted to buttocks/sacral area. Admit completed and report given to oncoming nurse.
[2017-04-27 19:43] VITALS: BP 159/81; PULSE 94; RESP 16; O2SAT 95
[2017-04-28 00:36] VITALS: BP 130/63; PULSE 76; RESP 18; O2SAT 97
[2017-04-28 02:04] LABS: APPEARANCE,URINE HAZY (CLEAR,HAZY); COLOR,URINE YELLOW (YELLOW); OCCULT BLOOD,URINE MODERATE (NEGATIVE)
[2017-04-28 02:24] LABS: ICTOTEST,URINE POSITIVE (Negative)
[2017-04-28 02:25] LABS: UROBILINOGEN,URINE 0.2 mg/dL (NORMAL)
--- NOTE | 2017-04-28 03:59 | NUR ---
Surgical incision bleed Pt has minor amount of sero-sang drainage to midline incision. Dressing intact. Monitoring q1hr for changes. Pt reports no pain ot nausea. Denies SOB. Hematoma to right side has remained unchanged. Pt has been NPO since midnight in the event he does have surgery in the AM. care continues
[2017-04-28 04:52] VITALS: BP 125/69; PULSE 75; RESP 16; O2SAT 98
[2017-04-28 06:10] LABS: INR 1.47 ratio
--- NOTE | 2017-04-28 08:24 | PCM.PNSURG ---
Subjective Visit Information: Reason for Visit Abdominal Wall Bleeding Surgery/Surgery Date Post-Op Day # Date of Admission: Apr 27, 2017 at 16:51 Hospital Day # Subjective: No bleeding overnight. Hct dropped to 27. UOP 1000mL. Wound intact without sign of hematoma. R abdominal edema present, similar to pre-surgery but now with mild ecchymosis. WBC normal. Nutritionally he has been eating yogurt and baked potatoes prior to readmission ; NPO since midnight today. Objective Vital Sign- Last 8 Hours Date Time Temp Pulse Resp B/P Pulse Ox O2 Delivery O2 Flow Rate FiO2 04/28/17 04:52 36.7 75 16 125/69 98 Room Air 04/28/17 00:36 36.8 76 18 130/63 97 Room Air Intake and Output- Last 8 Hour 04/28/17 Cumulative From/Thru 07:00 04/27/17 13:55 - 04/28/17 06:17 Intake Total 300 ml 300 ml Output Total 1000 ml 1000 ml Balance -700 ml -700 ml Intake Oral 300 ml 300 ml Output Urine Total 1000 ml 1000 ml # Bowel Movements 0 0 General: Alert, Oriented X3, Cooperative, No Acute Distress Abdomen: Soft, Non-tender, Other (Midline wound with a small clot between sutures, no hematoma/erythema/induration. Edema to R mid abdominal wall with mild ecchymosis.) Result Diagram: 04/28/17 0445 04/27/17 1409 Assessment & Plan Impression 82yom s/p R colectomy for cecal volvulus last week, readmitted yesterday for bleeding from his wound. He had been on lovenox and coumadin for h/o DVT and Afib. This was held in the early period after surgery and restarted just prior to discharge last week. Lovenox held overnight, no current bleeding. Problems: Plan -Continue to hold lovenox and coumadin for a total of 5 days to prevent recurrent bleeding and potential readmission or need for reoperation. -Iron to treat anemia, miralax to prevent constipation from iron -Regular diet with Impact while an inpatient -Continue to observe until this afternoon; if no repeat bleeding, OK to discharge to home -Appreciate care of all providers and staff Melanie Ogden MD Apr 28, 2017 08:24
[2017-04-28] MEDS ORDERED: Polyethylene Glycol (PEG) 17 Gm Powder PO SCH (08:30)
[2017-04-28 09:01] VITALS: O2SAT 95
--- NOTE | 2017-04-28 12:26 | NUR ---
Case Management: ÁLVAREZ given and explained to pt and . Angelina SALCIDO RN
--- NOTE | 2017-04-28 13:38 | PCM.DISURG ---
Surgical Discharge Instruction Date of Service Apr 28, 2017 Dates of Hospitalization Date of Hospital Admission Apr 27, 2017 at 16:51 Providers Admitting Physician: Jaiden Bauman MD Primary Care Physician: Joselo Schmitt MD Attending Physician: Jaiden Bauman MD Discharge Diagnosis Discharge Diagnosis Primary diagnoses: Postsurgical midline incisional bleeding Other conditions: 1. Cecal volvulus status post right hemicolectomy 2. Chronic atrial fibrillation 3. Coronary artery disease 4. Hypertension 5. History of DVT 6. Demand ischemia versus N STEMI 10/14/1916 7. History of CVA with residual right hemiparesis, has been on bed rest since CVA 4 years. 8. Dyspepsia 9. DJD 10. Anxiety 11. History of cutaneous B-cell lymphoma 12. History of renal cell carcinoma 13. Former cigarette smoker Diet Discharge Diet: No restrictions, Other (impact twice a day) Activity Discharge Activity-General: Other (bed rest) Dressing and Incisional Care Dressing Care: Other (apply dry dressing when necessary) Hygiene: May shower Additional Instructions Discharge Instructions Stop Coumadin and Lovenox 5 days. Resume Coumadin and Lovenox on 05/03/2017. Follow Up Plan Follow-up Provider (F9): Melanie Ogden MD Follow-up appointment: Days (10 with PT/INR and CBC with differential and platelets) Call your provider for: Wound redness, Warmth to touch, Other (wound bleeding) Destin Ferrari PA-C Apr 28, 2017 13:38
[2017-04-28] MEDS ORDERED: FERR-74 PO (13:42)
[2017-04-28] MEDS ORDERED: POLY17PO6 PO (13:42)
--- NOTE | 2017-04-28 13:51 | PCM.DC.SUR ---
Discharge Summary Date of Service: Apr 28, 2017 Date of Hospital Admission: Apr 27, 2017 at 16:51 Date of Discharge: 04/28/2017 Diagnosis at Time of Discharge Primary diagnoses: Postsurgical midline incisional bleeding Other conditions: 1. Cecal volvulus status post right hemicolectomy 2. Chronic atrial fibrillation 3. Coronary artery disease 4. Hypertension 5. History of DVT 6. Demand ischemia versus N STEMI 10/14/1916 7. History of CVA with residual right hemiparesis, has been on bed rest since CVA 4 years. 8. Dyspepsia 9. DJD 10. Anxiety 11. History of cutaneous B-cell lymphoma 12. History of renal cell carcinoma 13. Former cigarette smoker Problems: Brief History and Physical: The patient recently underwent emergency right hemicolectomy for cecal volvulus. This surgery was performed 8 days ago. He did well, was discharged from the hospital yesterday on Lovenox and warfarin, being bridged back onto his warfarin that he takes for a distant history of DVT, atrial fibrillation, and history of a history of a CVA three years ago. Since he was home, his was continuing to change the pad on his midline incision and it continued to bleed. She presents to the emergency department with concerns about ongoing bleeding. Consultants: None Hospital Course: The patient was admitted for observation and evaluation. There was no ongoing bleeding, the patient was discharged back to home off Lovenox and Coumadin for 5 days on the afternoon of his second hospital day. Pathology: None Disposition: The patient was discharged home on his second hospital day by ambulance off Coumadin and Lovenox for 5 days. Follow-up Plan: He will follow-up in the office with Dr. Ogden in 10 days. Allopurinol (Allopurinol) 100 Mg Tablet 100 MG PO QAM (Reported) Aspirin (Aspirin) 81 Mg Tablet 81 MG PO DAILY (Reported) Cholecalciferol (Vitamin D3) (Vitamin D3) 1,000 Unit Tab.chew 1,000 UNIT PO Noon (Reported) Cyanocobalamin (Vitamin B-12) (Vitamin B-12) 1,000 Mcg Tablet 1,000 MCG PO HS ( Reported) Docusate Sodium (Colace) 100 Mg Capsule 100 MG PO DAILY PRN PRN For Constipation (Reported) Ferrous Sulfate (Feosol) 325 Mg Tablet 325 MG PO DAILYWM Lorazepam (Ativan) 0.5 Mg Tablet 0.5 MG PO HS PRN PRN For Anxiety (Reported) Metoprolol Tartrate (Metoprolol Tartrate) 25 Mg Tablet 12.5 MG PO BID Nitroglycerin SL (Nitrostat) 0.4 Mg Tab.subl 0.4 MG SL Q5MIN PRN PRN For Chest Pain Nystatin (Nystatin) 15 Gm Powder 1 APPLIC EXTERNAL BID PRN PRN rash (Reported) Polyethylene Glycol 3350 (Miralax) 17 Gm Powd.pack 17 GM PO DAILY Simvastatin (Simvastatin) 20 Mg Tablet 20 MG PO HS (Reported) Triamterene/HCTZ 75-50 mg (Triamterene/HCTZ 75-50 mg) 1 Each Tablet 1 EACH PO QAM (Reported) oxyCODONE-Acetaminophen 5-325 mg (oxyCODONE-Acetaminophen 5-325 mg) 1 Each Tablet 0.5-1 TAB PO noon PRN PRN For Pain (Reported) copies to: Joselo Schmitt MD, Fred H PA-C Apr 28, 2017 13:51
--- NOTE | 2017-04-28 14:01 | NUR ---
Social Work- Initial Assessment/Discharge/Multi-Disciplinary Rounds Data: See Initial Assessment. Pt is a 82 year old male admitted 04/27/17 for abdominal wall bleeding per H&P. Pt's insurance is [facility] and [employer]. Pt's PCP is Joselo Schmitt MD. Pt's readmit risk score is 3 high risk. Pt's DPOA is his . Per multidisciplinary rounds with the charge loader, pt is s/p dustin colectomy. Discharge orders are active at this time. SW met with pt at bedside regarding discharge plan, SW role explained. Pt alert and oriented x3. Pt's capacity for self-care was assessed. Pt resides in [place] with his . Pt is bed bound at baseline and is a total assist for all ADLs. Pt's assists him at home with all care. Pt does not drive. Pt has no LTC or VA benefits. Pt is open with [facility] for RN care. T/C from Yelena at [facility] regarding pt's care. Yelena confirms that pt is open for RN and will require resumption orders at discharge. Pt has no history of any other companies. Pt has no SNF history. Pt requires ambulance transport home. Pt to discharge home via BLS transport. Pt declined having [employer] [employer] contact his , pt states he will do it. RN updated about pt's discharge. MIRTHA received orders for BLS transport from [facility]. MIRTHA facilitated resumption of care orders for [facility]. [facility] faxed pt's resumption of care orders to Yelena at [facility]. Pt's PCS form is completed for discharge. [facility] coordinated transport home at 1530. Pt and RN updated and agreeable to plan. Assessment: Pt for whom resumption of [facility] RN is medically necessary Plan: Pt to discharge home via BLS at 1530 with resumption of [facility] RN. Pt will update his of his discharge. Pt and RN are updated and agreeable to transportation at 1530. No additional discharge needs identified. EMILIANA Alegria Addendum: 04/28/17 at 1410 by SHERIN WYLIE Amended: Links added.
--- NOTE | 2017-04-28 14:02 | NUR ---
Faxed discharge paperwork to [facility] per ALLIANCE DIRECTOR. updated ALLIANCE DIRECTOR
[2017-04-28] MEDS ORDERED: LOV40 SUBQ (15:38)
[2017-04-28 16:12] VITALS: BP 142/69; PULSE 82; RESP 16; O2SAT 98
--- NOTE | 2017-04-28 16:48 | NUR ---
Surgical Dressing, Discharge Surgical dressing stable this shift, with no drainage noted on ABD pad. Pad removed by surgical team prior to discharge, no bleeding noted, incision well approximated and madhavi intact. Orders for discharge were received. The patient was made aware of the plan for discharge and was agreeable to go. The patient was given information regarding his diagnosis and treatment, signs and symptoms to be aware of, follow up instructions, scripts sent to preferred pharmacy as well as information on those new medications and dosages. All medication doses and start dates verified and discussed with the patient. The patient signified understanding of this information, verified using the teach back method. The patient's asymptomatic IV was then removed intact and the patient's belongings were gathered. The patient then [facility], which took him to an awaiting private ambulance transfer vehicle. At the time of discharge the patient was alert and oriented, with no complaint of shortness of breath, chest pain, nausea or out of control pain, surgical site intact.
== END 2017-04-28 16:00 | disposition home health service (06) ==
LOC: EDBD 13:51 → SED 13:51 → EDUNIT# 13:51 → OSC 16:51
PROVIDERS: ADMIT Surgery; ATTEND Surgery
DX: K91.841 Postprocedural hemorrhage of a digestive system organ or structure following other procedure (principal); I48.91 Unspecified atrial fibrillation; I10 Essential (primary) hypertension; K30 Functional dyspepsia; M19.90 Unspecified osteoarthritis, unspecified site; F41.9 Anxiety disorder, unspecified; Z86.718 Personal history of other venous thrombosis and embolism; Z86.73 Personal history of transient ischemic attack (TIA), and cerebral infarction without residual deficits; Z87.891 Personal history of nicotine dependence; Z85.528 Personal history of other malignant neoplasm of kidney; Y83.9 Surgical procedure, unspecified as the cause of abnormal reaction of the patient, or of later complication, without mention of misadventure at the time of the procedure; Z88.1 Allergy status to other antibiotic agents; Z88.8 Allergy status to other drugs, medicaments and biological substances; Z79.899 Other long term (current) drug therapy
CPT/HCPCS: 36415; 80053; 81000; 85014; 85018; 85025; 85610; 87077; 87086; 87088; 87186; 94640; 99285; G0378

== ENCOUNTER 2017-05-03 16:01 | Emergency (ER) | payer MEDICARE, OTHER ==
[~2017-05-03] VITALS: Ht 193 cm; Wt 109.1 kg
[~2017-05-03 16:01] MED LIST changes: +FERR-74 PO; -LOV120 SUBQ; +LOV40 SUBQ; +POLY17PO6 PO; -SENN-133 PO; +SIMV20TA4 PO; -SIMV40TA5 PO; -WARF2.5T82 PO; -WARF5TAB7 PO
[2017-05-03 16:07] VITALS: BP 149/91; PULSE 73; RESP 23
[2017-05-03 16:47] VITALS: BP 156/63; PULSE 75; RESP 20; O2SAT 98
--- NOTE | 2017-05-03 17:39 | ED.REPORT ---
HPI-General Illness Date of Service May 03, 2017 ED Provider: Byron Avalos DO The pt is a 82 y/o male w/ a hx of CAD, and HTN presenting to the ED due to bleeding from an abdominal surgery done 11 days ago. The pts reports about a teaspoon of blood coming out. The pt had a huge bm which involved a lot of rocking back and forth and the suspects this is what caused the bleeding. The pt has not taken his Warfarin since Thursday. Nursing Notes Stated Complaint: POST SURGERY WOUND Chief Complaint: POST SURGERY WOUND Nursing Notes Reviewed: Yes Allergies: Coded Allergies: ciprofloxacin (Verified Allergy, Unknown, rash, 04/27/17) rofecoxib (Verified Adverse Reaction, Mild, It just didn't work, 04/27/17) Scheduled Allopurinol (Allopurinol) 100 Mg Tablet 100 MG PO QAM Aspirin (Aspirin) 81 Mg Tablet 81 MG PO DAILY Cholecalciferol (Vitamin D3) (Vitamin D3) 1,000 Unit Tab.chew 1,000 UNIT PO Noon Cyanocobalamin (Vitamin B-12) (Vitamin B-12) 1,000 Mcg Tablet 1,000 MCG PO HS Enoxaparin (Lovenox) 40 Mg/0.4 Ml Syringe 40 MG SUBQ DAILY Ferrous Sulfate (Feosol) 325 Mg Tablet 325 MG PO DAILYWM Metoprolol Tartrate (Metoprolol Tartrate) 25 Mg Tablet 12.5 MG PO BID Polyethylene Glycol 3350 (Miralax) 17 Gm Powd.pack 17 GM PO DAILY Simvastatin (Simvastatin) 20 Mg Tablet 20 MG PO HS Triamterene/HCTZ 75-50 mg (Triamterene/HCTZ 75-50 mg) 1 Each Tablet 1 EACH PO QAM Scheduled PRN Docusate Sodium (Colace) 100 Mg Capsule 100 MG PO DAILY PRN PRN For Constipation Lorazepam (Ativan) 0.5 Mg Tablet 0.5 MG PO HS PRN PRN For Anxiety Nitroglycerin SL (Nitrostat) 0.4 Mg Tab.subl 0.4 MG SL Q5MIN PRN PRN For Chest Pain Nystatin (Nystatin) 15 Gm Powder 1 APPLIC EXTERNAL BID PRN PRN rash oxyCODONE-Acetaminophen 5-325 mg (oxyCODONE-Acetaminophen 5-325 mg) 1 Each Tablet 0.5-1 TAB PO noon PRN PRN For Pain General Time Seen by MD: 16:22 Chief Complaint Other (Bleeding from abdominal incision ) Hx Obtained From: Patient Arrived By: Walk-in Sudden in Onset?: Yes Onset Occurred: Just prior to arrival Symptom Duration: Intermittent Recent Healthcare: Recent doctor visit, Recent hospitalization Similar Sx Previous: No Past Medical History Past Medical History Bedridden since stroke in 2010 1. Coronary artery disease. He had a cath back in early 1999 that showed mild multivessel disease with an EF of 60%. 2. History of B-cell lymphoma 3. He has had bilateral kidney cysts which have been removed. 4. osteoarthritis 5. 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 6. Colon polyps. 7. Atrial fibrillation. 8. Hypertension. 9. Gout 10. 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 Physical Exam Vital Signs Vital Signs Date Time Temp Pulse Resp B/P Pulse Ox O2 Delivery O2 Flow Rate FiO2 05/03/17 16:47 75 20 156/63 98 Room Air 05/03/17 16:07 36.6 73 23 149/91 Room Air Initial VS: Reviewed General/Constitutional: Well-developed, Well-nourished Head / Eyes: Atraumatic, Normocephalic, PERRL ENT: Mucous membranes moist, Conjunctiva normal, No scleral icterus Neck: Supple, Non-tender, Full range of motion Respiratory: Breath sounds normal, Clear to auscultation, No respiratory distress Cardiovascular: Regular rate & rhythm, Heart sounds normal, Intact distal pulses Neurologic: Alert, Oriented, Nonfocal Psychiatric: Mood/affect normal, Behavior normal, Normal thought content Abdomen: Soft, Non-tender Midline incision w/ some oozing No peritoneal signs Skin: No rash, Warm, Dry Ecchymosis in RLQ Interpretation & Diagnostics Lab Results Interpretation Result Diagram: 05/03/17 1734 Test 05/03/17 17:34 White Blood Count 12.8th/mm3 (3.8-10.1) Red Blood Count 3.41mil/mm3 (4.40-5.80) Hemoglobin 10.6g/dL (13.8-17.2) Hematocrit 32.7% (41.0-50.0) Mean Corpuscular Volume 95.9fL (81-100) Mean Corpuscular Hemoglobin 31.1pg (27.0-35.0) Mean Corpuscular Hemoglobin Concent 32.4% (32.0-37.0) Red Cell Distribution Width 14.9% (12.3-15.4) Platelet Count 286bil/L (150-400) Neutrophils (%) (Auto) 83.1% (40-74) Lymphocytes (%) (Auto) 5.6% (14-46) Monocytes (%) (Auto) 8.6% (4-12) Eosinophils (%) (Auto) 2.0% (0-5) Basophils (%) (Auto) 0.2% (0-3) Hold Eason Top Tube Received (Received) Re-Eval/Medical Decision Med Decision/Clinical Course Postoperative bleeding seen and evaluate by the surgeon. Pryor to be stable for discharge. Hemoglobin is up trending, no indication for transfusion. Please refer to the notes from the surgeon. Patient is discharged home. Return and follow-up precautions given Source of Hx: Old records Time of Eval: 17:48 Re-Evaluation/Progress Note: Discussed lab results and informed pt that he does not need a blood transfusion. F/U instructions and RTER warnings given. All questions addressed. Counseled Regarding: Diagnosis, Lab results, Need for follow-up, When/why to return to ED Discharge & Departure Primary Impression: Postoperative bleeding from incision Disposition: Home Discharge Condition All VS Reviewed: Yes Condition: Stable Additional Instructions: Your blood counts are reassuring. Follow-up with surgery as planned as well as the home health nurse. Do not resume warfarin or Lovenox until you have been instructed to do so by your surgeon or home health nurse. Return to the ER as needed for any concerns. Referrals: Joselo Schmitt MD (PCP) Scribe Attestation Portions of this note were transcribed by Shawn Bland. I, Dr. Avalos personally performed the history, physical exam and medical decision-making; I reviewed and confirmed the accuracy of the information in the transcribed note. Signed by : Aamir Diaz, 05/03/17 and 3610. copies to: Joselo Schmitt MD, Timothy S DO May 03, 2017 17:39 Shawn Bland May 03, 2017 17:49
[2017-05-03 18:08] LABS: BASOPHILS % (AUTO) 0.2 % (0-3); MONOCYTES % (AUTO) 8.6 % (4-12); Mean Corpuscular Hemoglobin 31.1 pg (27.0-35.0); Mean Corpuscular Volume 95.9 fL (81-100); NEUTROPHILS % (AUTO) 83.1 % (40-74); Platelet Count 286 bil/L (150-400)
[2017-05-03 18:20] LABS: INR 1.06 ratio
--- NOTE | 2017-05-03 18:36 | OP ---
[address] [address] OPERATIVE REPORT PATIENT: MITCHELL ROSENTHAL : 1935 MR#: [id number] ADMIT: 05/03/2017 JOB ID: [id number] DATE OF SURGERY: 05/03/2017 SURGEON: Jaiden Bauman M.D. PREOPERATIVE DIAGNOSIS(ES): Bleeding per incision. POSTOPERATIVE DIAGNOSIS(ES): Bleeding per incision. PROCEDURE: Wound exploration with partial re-closure. INDICATIONS: An 82-year-old man who presents to the emergency department with reports of recurrent bleeding from his midline wound. FINDINGS: See below. PROCEDURE IN DETAIL: The procedure was done in the emergency department. The patient's abdomen was prepped and draped in sterile fashion. I instilled subcutaneous lidocaine. I removed all madhavi and stitches. The upper wound was pretty well closed and I did not open that up. The lower wound I opened up and what I found was old blood clot with the most caudad aspect with a 3 cm space. The clot did not appear infected, though it was partially liquified. I washed this out. The wound was clean. I considered re-closing the wound, but due to the space in the inferior portion, I was concerned about bleeding or infection. I therefore closed the upper 3/4 of the wound with a running locking nylon suture followed by wound irrigation and packing with a 4 x 4 sponge. As the patient's hematocrit is stable and bleeding has not been excessive, he will go home today with followup through [facility] and follow up through Dr. Ogden's office.
--- NOTE | 2017-05-03 18:38 | CONS ---
[address] [address] CONSULTATION REPORT PATIENT: MITCHELL ROSENTHAL : 1935 MR#: [id number] ADMIT: 05/03/2017 JOB ID: [id number] DATE OF SERVICE: 05/03/2017 IDENTIFYING DATA AND CHIEF COMPLAINT: An 82-year-old man seen in the emergency department for reported bleeding from his incision. HISTORY OF PRESENT ILLNESS: The patient is several weeks out from emergency right hemicolectomy for cecal volvulus. He has done well, but was readmitted hospital once due to bleeding from his midline incision. He has been home, but I received a call today from the visiting nurse saying that he had been bleeding for three days. They discussed the care with the on-call surgeon yesterday, who had told them to hold the Coumadin that was supposed to start today and to check a hematocrit. The hematocrit has been checked but the results are not available. The nurse calls because the bleeding continues. I therefore had them come to the emergency department, where his reports a moderate amount of bleeding each day. PHYSICAL EXAMINATION: He is hemodynamically stable. I have opened his wound at the bedside as described in the separate procedure note. There is not much active bleeding but there is some old liquefying hematoma that I have washed out. There is no sign of infection. LABORATORY DATA: His hematocrit is 32.7. His white count is 12.8. His platelet count is 286. INR is pending. IMPRESSION AND PLAN: I have partially closed his wound and packed it. I do not think he has had that much bleeding. However, I am concerned that he does have enough space in the lower portion of his wound that if I were to reclose it completely that he would either accumulate blood or possible infection in that space. I have contacted the visiting nurses who had contacted me and left instructions to start his Coumadin on Thursday without a loading dose, to do a wet-to-dry every day for his wound. His stitches can come out when his wound has closed up secondarily. I would like him to follow up with Dr. Ogden's office but the patient and his were quite concerned regarding the expense of a cabulance. I will let Dr. Ogden's office sort that out with them by phone next week or the following.
[2017-05-03 19:05] VITALS: BP 127/77; PULSE 66; RESP 20; O2SAT 95
== END 2017-05-03 18:56 | disposition home or self-care (01) ==
LOC: SED 16:01 → EDBD 16:01 → SED 18:56
DX: K91.840 Postprocedural hemorrhage of a digestive system organ or structure following a digestive system procedure (principal); I25.10 Atherosclerotic heart disease of native coronary artery without angina pectoris; I50.9 Heart failure, unspecified; Z86.73 Personal history of transient ischemic attack (TIA), and cerebral infarction without residual deficits; Z87.891 Personal history of nicotine dependence; Z79.82 Long term (current) use of aspirin; Z88.1 Allergy status to other antibiotic agents; Z79.01 Long term (current) use of anticoagulants